=== PATIENT | female | born 1955 | race Caucasian/White ===

== ENCOUNTER → 2021-07-11 10:29 | Outpatient (BNVA) | payer MEDICARE, SELFPAY | PROVIDERS: PCP Physician Assistant; Referring Provider Physician Assistant; Visit Provider Psychiatry & Neurology Neurology | DX: D32.9 Benign neoplasm of meninges, unspecified (principal); G40.109 Localization-related (focal) (partial) symptomatic epilepsy and epileptic syndromes with simple partial seizures, not intractable, without status epilepticus; I63.89 Other cerebral infarction; G08 Intracranial and intraspinal phlebitis and thrombophlebitis | CPT/HCPCS: 99215 ==

== ENCOUNTER 2024-08-20 11:15 | Outpatient (CLI) | payer MEDICARE, SELFPAY ==
--- NOTE | 2024-08-20 | DI.US_ITS ---
Exam(s) US LOWER EXTREMITY VENOUS LT EXAM: US LOWER EXTREMITY VENOUS LT CLINICAL HISTORY: LEFT LEG PAIN M79.605 R/O DVT. TECHNIQUE: Lower extremity venous ultrasound performed using grayscale, color-flow, and spectral Do ppler analysis. COMPARISON: No exams were available for comparison FINDINGS: The common femoral, femoral and popliteal veins demonstrate normal compressibility, augmentation, and color Doppler. The posterior tibial and peroneal veins are patent. No saphenous vein thrombosis or other superficial venous thrombosis is seen. No hematoma or Chappell's cyst is seen. IMPRESSION: Negative lower extremity ultrasound. No evidence of DVT. DATA REPOSITORY:
== END 2024-08-20 11:35 ==
PROVIDERS: PCP Physician Assistant; Visit Provider Emergency Medicine
DX: M79.605 Pain in left leg (principal)
CPT/HCPCS: 93971

== ENCOUNTER → 2024-10-08 08:56 | Outpatient (BNVA) | payer MEDICARE, SELFPAY | PROVIDERS: PCP Physician Assistant; Referring Provider Physician Assistant; Visit Provider Podiatrist | DX: L60.0 Ingrowing nail (principal); B35.1 Tinea unguium; L60.3 Nail dystrophy; G62.9 Polyneuropathy, unspecified; I73.89 Other specified peripheral vascular diseases; M79.674 Pain in right toe(s); E11.9 Type 2 diabetes mellitus without complications; L97.522 Non-pressure chronic ulcer of other part of left foot with fat layer exposed; R60.0 Localized edema; I83.93 Asymptomatic varicose veins of bilateral lower extremities; L65.9 Nonscarring hair loss, unspecified; R23.8 Other skin changes | CPT/HCPCS: 11719; 99204 ==

== ENCOUNTER 2025-03-22 15:51 | Outpatient (REF) | payer MEDICARE, SELFPAY ==
[2025-03-22 17:05] LABS: Glucose Negative (Negative)
== END 2025-03-22 15:52 | disposition home or self-care (01) ==
LOC: LBN 15:51
PROVIDERS: PCP Physician Assistant; Visit Provider Nurse Practitioner Adult Health
DX: R53.1 Weakness (principal)
CPT/HCPCS: 81003; 87086

== ENCOUNTER 2025-04-15 04:08 | Inpatient (IN) | payer MEDICARE, SELFPAY ==
[2025-04-15] VITALS (61 sets, daily range): BP systolic 125–168; BP diastolic 52–133; PULSE 57–135; RESP 14–27; TEMP 36.2–40.5; O2SAT 85–99
--- NOTE | 2025-04-15 04:00 | RT.EKG_ITS ---
APPROVED REPORT Exam: Resting ECG Reason for Exam: sepsis Patient Location: E HR:123 bpm ECG Measurements Heart Rate 123 AXIS AR 181 P 74 QRSd 76 QRS 35 QT 303 T 3 QTc 434 Conclusion Sinus tachycardia...rate> [address] segment or T wave abnormalities to suggest occlusive IN
--- NOTE | 2025-04-15 04:15 | DI.CT_ITS ---
Exam(s) CT HEAD WO EXAM: CT HEAD WO CLINICAL HISTORY: fever, AMS, ?siezures, hx meningioma. TECHNIQUE: Imaging Protocol: Axial computed tomography images with coronal and sagittal reformatted images were created and reviewed COMPARISON: CT CT CTV HEAD/BRAIN from 04/12/[address] CTV HEAD/BRAIN from 07/28/2021 FINDINGS: Ventricles and Extra axial spaces: Normal in size and morphology for the patient's age. Hemorrhage: None. Cerebral parenchyma: There are areas of encephalomalacia involving the right parietal lobe in the occipital lobes bilaterally. There are areas of decreased attenuation in the white matter consistent with chronic microvascular ischemic disease. Midline shift: None. Brainstem/Cerebellum: Normal. Calvarium: Patient has had bilateral prior craniotomies. Visualized Paranasal sinuses/Mastoids: There is mucosal thickening seen in the ethmoid air cells and sphenoid sinuses bilaterally. The mastoid air cells are clear. Soft Tissues: Unremarkable. IMPRESSION: 1. No acute intracranial process. 2. Areas of encephalomalacia and chronic microvascular ischemic disease. 3. Bilateral prior craniotomies. 4. The preliminary [facility] report was reviewed. RADIATION DOSE DELIVERED: 823.67mGy.cm Total DLP DATA REPOSITORY: All CT scans at this facility are submitted to the National Radiology Data Registry (NRDR) Dose Index Registry (DIR) with the [employer] ([employer]). RADIATION OPTIMIZATION: All CT scans at this facility use at least one of these dose optimization techniques: automated exposure control; mA and/or kV adjustment per patient size (includes targeted exams where dose is matched to clinical indication); or iterative reconstruction.
--- NOTE | 2025-04-15 04:42 | W.ED.GENAD ---
Discharge Plan Discharge Details Chief Complaint: AMS/LOC Clinical Impression: Sepsis, Seizure, Brain tumor Primary Care Provider: Francine Owen ED Provider: Adri Kohli Home Meds and New Rx's Prescriptions: No Action Eliquis 5 mg tablet 5 mg PO BID ketoconazole 2 % cream 1 applic topical DAILY Qty: 120 6RF Rx Instructions: Apply to toenails once daily cholecalciferol (vitamin D3) 50 mcg (2,000 unit) capsule 50 mcg PO DAILY omega-3 fatty acids [Fish Oil Concentrate] 1,000 mg capsule 1,000 mg PO BID lacosamide 200 mg tablet 200 mg PO BID levetiracetam 750 mg tablet 500 mg PO BID nystatin 100,000 unit/gram powder 1 applic topical BID Proair Digihaler 90 mcg/actuation aero powdr breath act w/sensor 2 inh IH Q6H loratadine 10 mg tablet 10 mg PO DAILY folic acid 1 mg tablet 1 mg PO DAILY lorazepam 1 mg tablet 1 mg PO PRN PRN (Reason: anxiety/MRI) Qty: 2 0RF Rx Instructions: Take 1 tab 30min prior to MRI; ok to take 2nd if still claustrophobic; no driving cyclobenzaprine 10 mg tablet 10 mg PO TID PRN acyclovir 400 mg tablet 400 mg PO TID Alive Women's Multivitamin 4.5 mg iron- 120 mcg-60 mcg tablet 1 tab PO DAILY calcium carbonate 600 mg calcium (1,500 mg) tablet 600 mg PO DAILY cyanocobalamin (vitamin B-12) 1,000 mcg capsule 1,000 mcg PO DAILY dexamethasone 1 mg tablet 1 mg PO DAILY Patient Comments: TAKE 1 & 1/2 TABLETS BY MOUTH DAILY FOR 1 WEEK, THEN TAKE 1 TABLET DAILY THEREAFTER fluconazole 100 mg tablet 100 mg PO DAILY glipizide 2.5 mg tablet 2.5 mg PO DAILY losartan 25 mg tablet 25 mg PO DAILY omeprazole 40 mg capsule,delayed release(DR/EC) 40 mg PO DAILY Patient Comments: TAKE ONE CAPSULE BY MOUTH EVERY DAY gabapentin 300 mg capsule 300 mg PO BID diphenhydramine HCl [Benadryl] 25 mg capsule 25 mg PO Q12H PRN PRN bisacodyl 10 mg suppository 10 mg DC Q12H PRN PRN HPI General Mode of arrival: EMS. Date/Time Provider Initiated Documentation: 04/15/25 04:19. Limitations to Documentation: altered mental status. Information obtained by: patient, EMS and old records reviewed. HPI Narrative: 69yo F with hx HTN, HLD, COPD, T2DM, CKD3, GERD, meningoma, seizures on keppra & locasamide, [facility] and altered mental status. Medical history from chart review (nursing facility) and HPI from EMS. Per EMS nursing facility staff reported patient is not at her baseline mental status (does have some confusion at baseline), was incontinent of urine which is abnormal for her; temp of 105F for EMS and tachycardia to 130's. Unknown last known normal. No medications prior to arrival. No history able to be obtained from patient. Related Data Home Medications Medication Instructions Recorded Confirmed albuterol sulfate 90 mcg/actuation 2 inh inhalation Q6H 09/02/19 04/15/25 breath activated powder inhaler,sensor (Proair Digihaler) Held on 04/15/25. Instructions: Pt Stopped/Never Started folic acid 1 mg tablet 1 mg PO DAILY 09/02/19 04/15/25 Held on 04/15/25. Instructions: Pt Stopped/Never Started loratadine 10 mg tablet 10 mg PO DAILY 09/02/19 04/15/25 Held on 04/15/25. Instructions: Pt Stopped/Never Started lorazepam 1 mg tablet 1 mg PO PRN PRN anxiety/MRI #2 tabs 02/22/20 04/15/25 Held on 04/15/25. Instructions: Pt Stopped/Never Started cholecalciferol (vitamin D3) 50 50 mcg PO DAILY 04/14/20 04/15/25 mcg (2,000 unit) capsule omega-3 fatty acids 1,000 mg 1,000 mg PO BID 04/14/20 04/15/25 capsule (Fish Oil Concentrate) acyclovir 400 mg tablet 400 mg PO TID 06/05/21 04/15/25 Held on 04/15/25. Instructions: Pt Stopped/Never Started cyclobenzaprine 10 mg tablet 10 mg PO TID PRN 06/05/21 04/15/25 Held on 04/15/25. Instructions: Pt Stopped/Never Started lacosamide 200 mg tablet 200 mg PO BID 07/11/21 04/15/25 levetiracetam 750 mg tablet 500 mg PO BID 07/11/21 04/15/25 nystatin 100,000 unit/gram topical 1 applic topical BID 07/11/21 04/15/25 powder Held on 04/15/25. Instructions: Pt Stopped/Never Started apixaban 5 mg tablet (Eliquis) 5 mg PO BID 10/08/24 04/15/25 ketoconazole 2 % topical cream 1 applic topical DAILY #120 grams 10/08/24 04/15/25 Held on 04/15/25. Instructions: Pt Stopped/Never Started bisacodyl 10 mg rectal suppository 10 mg DC Q12H PRN PRN 04/15/25 04/15/25 calcium carbonate 600 mg PO DAILY 04/15/25 04/15/25 cyanocobalamin (vitamin B-12) 1,000 mcg PO DAILY 04/15/25 04/15/25 1,000 mcg capsule dexamethasone 1 mg tablet 1 mg PO DAILY 04/15/25 04/15/25 diphenhydramine HCl 25 mg capsule 25 mg PO Q12H PRN PRN 04/15/25 04/15/25 (Benadryl) fluconazole 100 mg tablet 100 mg PO DAILY 04/15/25 04/15/25 gabapentin 300 mg capsule 300 mg PO BID 04/15/25 04/15/25 glipizide 2.5 mg tablet 2.5 mg PO DAILY 04/15/25 04/15/25 losartan 25 mg tablet 25 mg PO DAILY 04/15/25 04/15/25 mv-min-iron 4.5 mg-folic ac 120 1 tab PO DAILY 04/15/25 04/15/25 mcg-vit K1 60 mcg-herbal no.352 tablet (Alive Women's Multivitamin) omeprazole 40 mg capsule,delayed 40 mg PO DAILY 04/15/25 04/15/25 release Previous Rx's Medication Instructions Recorded lorazepam 1 mg tablet 1 mg PO PRN PRN anxiety/MRI #2 tabs 02/22/20 Held on 04/15/25. Instructions: Pt Stopped/Never Started ketoconazole 2 % topical cream 1 applic topical DAILY #120 grams 10/08/24 Held on 04/15/25. Instructions: Pt Stopped/Never Started Allergies Allergy/AdvReac Type Severity Reaction Status Date / Time spider venom Allergy Mild swelling Verified 10/08/24 09:04 [place] nut Allergy Unknown Verified 10/08/24 09:04 house dust Allergy Unknown Verified 10/08/24 09:04 Penicillins Allergy Unknown Verified 10/08/24 09:04 General Stated Complaint: AMS/LOC VIKY: 2 Review of Systems Unobtainable due to mental status Exam Narrative Exam Narrative: General: Unresponsive to voice Head: Atraumatic Neck: Trachea midline, Neck supple. ENT: MMM. Cardiac: Tachycardiac, regular, no murmurs appreciated Resp: No respiratory distress. Coarse breath sounds bilaterally. Abd: Soft, non-distended, nontender : No suprapubic tenderness. Extremities: No deformities. Neurologic: Initially appears to be seising with rightward beating nystagmus and subtle jaw movements. Terminated within 5 minutes, subsequently 9 (E2 V2 M5). Moves all extremities. 0500 repeat neuro exam: Neuro: GCS 14. PERRL. EOMI. Fluent speech, no dysarthria. Motor- 4/5 strength LUE, otherwise 4+/5 strength symmetric bilateral upper and lower extremities Sensation- Intact to light touch and symmetric multiple dermatomes including upper and lower extremities. Coordination- No dysmetria on finger to nose Reflexes- 2/4 achilles & patellar, no clonus Gait/station: Not tested CRANIAL NERVES: II: Pupils equal and reactive, III, IV, : EOM intact, no gaze preference or deviation, no nystagmus. V: normal sensation in V1, V2, and V3 segments bilaterally VII: no asymmetry, no nasolabial fold flattening VIII: normal hearing to speech IX, X: normal palatal elevation, no uvular deviation XI: 5/5 head turn and 5/5 shoulder shrug bilaterally XII: midline tongue protrusion Course Vital Signs Vital signs: Vital Signs Temperature 40.5 C H 04/15/25 04:09 Pulse 135 H 04/15/25 04:09 Respiratory Rate 20 04/15/25 04:09 Blood Pressure 167/90 H 04/15/25 04:09 Pulse Oximetry 95 04/15/25 04:09 Temperature 40.5 C H 04/15/25 04:13 Temperature Source Rectal 04/15/25 04:13 Pulse 135 H 04/15/25 04:13 Respiratory Rate 20 04/15/25 04:13 Blood Pressure 167/90 H 04/15/25 04:13 Blood Pressure Position Supine 04/15/25 04:13 Pulse Oximetry 95 04/15/25 04:13 Oxygen Delivery Method Room Air 04/15/25 04:13 Oxygen Flow Rate 0 04/15/25 04:13 Pain Level 0 04/15/25 04:13 Lab/Test Results Lab/Test Results: 04/15/25 04:08 Blood Blood Culture - Pending 04/15/25 04:08 Blood Blood Culture - Pending Medical Decision Making 69yo F with hx HTN, HLD, COPD, T2DM, CKD3, GERD, meningoma, seizures on keppra & locasamide, presenting [facility] fever and altered mental status. Medical history from chart review (nursing facility) and HPI from EMS. Per EMS nursing facility staff reported patient is not at her baseline mental status (does have some confusion at baseline), was incontinent of urine which is abnormal for her; temp of 105F for EMS and tachycardia to 130's. Unknown last known normal. No medications prior to arrival. No history able to be obtained from patient. Initial evaluation and resus: -Hypertensive, tachycardiac to 130's on arrival and febrile to 40.5. On my initial eval pt unresponsive, rightward beating nystagmus and subtle repetitive jaw movements concerning for seizure. Terminated within ~5 minutes as IV access was being obtained, subsequently GCS 9 (E2 V2 M5), moves all 4 extremities. Anterior mouth suctioned for mild oral secretions, airway reflexes intact, no indication for intubation at this time. -Warm to touch on exam, coarse lung sounds, dressing to right cabrera with underlying purulent wound. Malodourous urine in brief. Neck supple. -EKG sinus tachycardia, no ST segment or T wave abnormalities to suggest occlusive MD -Concern for sepsis of unknown origin. Given AMS and seizure must consider and cover for meningitis. Documented penicillin allergy with unknown reaction complicates abx coverage; will give Vanco, levoflox, & tmp/sulf for listeria coverage and give dexamethasone; blood and urine cultures. Hx of brain tumor; needs CT prior to LP; will not delay abx. -Will give 1L IVFB and see if improves HR, also 2g IV keppra load (initially ordered ativan however seizure terminated without intervention prior to admin so dced). ED course: -On reassessment pt alert, GCS 14 (confusion), denies pain. Unable to provide any meaningful history of events today though she is now able to confirm her past medical history. ROS negative. No new focal deficits on neurologic exam (pt reports LUE weakness and subjective left sided numbness are chronic). IVF and abx infusing. Preparing to go to [facility] -[facility] record review shows pt on eliquis for chronic cerebral venous thrombosis for which she is on eliquis -Labs reviewed as below, CBC with marked leukocytosis to 22, CMP with no actionable abnormalities and Cr of 1.2 consistent with CKD, Mg slightly low at 1.6 (oral replacement ordered), VBG with mild respiratory and metabolic alkalosis, lactate mildly elevated at 2.7 with repeat downtrending to 2.5, procal negative/reassuring, coags normal, initial troponin 17, resp viral swab negative. UA nitrate positive with moderate bacteria. Keppra level pending. -On reassessment patient remains alert, HR improved to low 100's, non-toxic appearing, no headache or neck pain. CT reads pending. -CT head independently reviewed; no midline shift on my view (does have clear abnormalities of unknown chronicity, possibly 2/t hx tumor/surgery/CVT), radiology read pending. -CT chest independently reviewed; no pneumonia or pleural effusions on my view, radiology read below with no acute findings. -CT abd/pelvis independently reviewed; no obstruction or free fluid on my view, radiology read below with no acute findings. -Repeat troponin uptrending to 30, likely [id number]. Will continue to treat underlying cause; would not do heparin/etc at this time. Will continue to trend. With rapid improvement in mental status seems most likely related to seizure/post ictal state and unlikely to be indicative of meningitis. Patient is now alert and denies any headache or neck pain, neck is supple. She did seize but has an underlying seizure disorder. In addition she is anticoagulated with a hx of cerebral thrombosis. I do not think the risks/benefits of lumbar puncture favor reversing AC and performing urgent LP as based on her current presentation and improving mental status I have a much lower suspicion for meningitis/encephalitis. With nitrate + urine and moderate bacteria, favor urinary source for her sepsis (does have purulent wound to right cabrera which is chronic and does not appear to have spreading cellulitis). Will be signed out to oncoming physician with plan to followup CT head. If no indication for transfer or other emergent workup based on this, would anticipate admission to [facility] for sepsis. Chest: IMPRESSION: 1. No acute findings to explain reported symptoms. 2. Nonacute findings as outlined above. 3. Additional studies dictated separately. Abd/Pelvis: IMPRESSION: 1. No acute findings to explain reported symptoms. 2. Nonacute findings as outlined above. 3. Additional studies dictated separately Head: Medical Records Medical records reviewed: Yes I reviewed the patient's medical records. Lab Data Lab results reviewed: Yes I reviewed the patient's lab results. Labs: 04/15/25 06:07 Urine - Cath [facility] Indwelling Urine Culture - Pending 04/15/25 04:40 Blood Blood Culture - Pending 04/15/25 04:08 Blood Blood Culture - Pending Laboratory Tests Range/Units 04/15/25 04/15/25 04/15/25 04:40 04:50 04:59 WBC (4.4-10.8) 10^3/uL 22.65 H RBC (3.93-5.22) 10^6/uL 4.22 Hgb (11.2-15.7) g/dL 12.0 Hct (36.0-46.0) % 37.6 MCV (80-95) fL 89 MCH (27.0-33.0) pg 28.4 MCHC (32.0-36.0) % 31.9 L RDW (11.7-14.6) % 14.4 Plt Count (130-400) 10^3/uL 225 MPV (8.0-11.0) fL 10.3 Immature Gran % % 1.2 Neutrophils % % 81.2 Lymphocytes % % 12.3 Monocytes % % 4.8 Eosinophils % % 0.2 Basophils % % 0.3 Nucleated RBC % (0.0-0.3) % 0.0 Absolute Neutrophils (1.2-6.7) 10^3/uL 18.39 H Absolute Lymphocytes (1.2-3.4) 10^3/uL 2.79 Absolute Monocytes (0.1-0.8) 10^3/uL 1.09 H Absolute Eosinophils (0.0-0.7) 10^3/uL 0.05 Absolute Basophils (0.0-0.2) 10^3/uL 0.07 PT (9.1-11.1) sec 10.9 INR (0.9-1.1) 1.1 APTT (20.6-30.2) sec 23.5 VBG pH (7.31-7.41) 7.47 H VBG pCO2 (41-51) mmHg 40 L VBG pO2 mmHg 35 VBG HCO3 (23-28) mmol/L 29 H VBG Total CO2 (24-29) mmol/L 26 VBG O2 Saturation % 67 VBG Base Excess (-2-3) mmol/L 6 H VBG Lactate (<or=2.0) mmol/L 2.7 H* Sodium (136-145) mmol/L 140 Potassium (3.5-5.1) mmol/L 3.5 Chloride (98-107) mmol/L 100 Carbon Dioxide (21.0-32.0) mmol/L 28.6 Anion Gap (3-11) mmol/L 11.4 H BUN (7-18) mg/dL 14 Creatinine (0.55-1.02) mg/dL 1.2 H Est GFR (CKD-EPI 2020) (mL/min/1.73m2) 49.61 Glucose (74-106) mg/dL 136 H Calcium (8.5-10.1) mg/dL 8.9 Magnesium (1.8-2.4) mg/dL 1.6 L Total Bilirubin (0.2-1.0) mg/dL 0.6 AST (15-37) U/L 18 ALT (14-59) U/L 29 Alkaline Phosphatase (46-116) U/L 83 Troponin I (<or=51) ng/L 17 Total Protein (6.4-8.2) g/dL 7.2 Albumin (3.4-5.0) g/dL 3.3 L Procalcitonin ng/mL < 0.10 Urine Color (Yellow) Urine Clarity (Clear) Urine pH (5-8) Ur Specific [place] (1.005-1.025) Urine Protein (Neg-Trace) mg/dL Urine Ketones (Negative) mg/dL Urine Blood (Negative) Urine Nitrite (Negative) Urine Bilirubin (Negative) Urine Urobilinogen (Up to 0.2) mg/dL Ur Leukocyte Esterase (Negative) Urine RBC (0-2) HPF Urine WBC (0-5) HPF Ur Epithelial Cells (Negative) HPF Urine Crystals (Negative) HPF Urine Bacteria (Negative) HPF Urine Casts (Negative) LPF Urine Mucus (Negative) Ur Culture Indicated? Urine Glucose (Negative) mg/dL COVID-19 Source Nasopharynx Cancelled SARS-CoV-2 (PCR) (Negative) Negative Cancelled Influenza Type A (PCR) (Negative) Negative Cancelled Influenza Type B (PCR) (Negative) Negative Cancelled RSV (PCR) (Negative) Negative Cancelled Range/Units 04/15/25 04/15/25 05:40 06:07 WBC (4.4-10.8) 10^3/uL RBC (3.93-5.22) 10^6/uL Hgb (11.2-15.7) g/dL Hct (36.0-46.0) % MCV (80-95) fL MCH (27.0-33.0) pg MCHC (32.0-36.0) % RDW (11.7-14.6) % Plt Count (130-400) 10^3/uL MPV (8.0-11.0) fL Immature Gran % % Neutrophils % % Lymphocytes % % Monocytes % % Eosinophils % % Basophils % % Nucleated RBC % (0.0-0.3) % Absolute Neutrophils (1.2-6.7) 10^3/uL Absolute Lymphocytes (1.2-3.4) 10^3/uL Absolute Monocytes (0.1-0.8) 10^3/uL Absolute Eosinophils (0.0-0.7) 10^3/uL Absolute Basophils (0.0-0.2) 10^3/uL PT (9.1-11.1) sec INR (0.9-1.1) APTT (20.6-30.2) sec VBG pH (7.31-7.41) VBG pCO2 (41-51) mmHg VBG pO2 mmHg VBG HCO3 (23-28) mmol/L VBG Total CO2 (24-29) mmol/L VBG O2 Saturation % VBG Base Excess (-2-3) mmol/L VBG Lactate (<or=2.0) mmol/L 2.5 H* Sodium (136-145) mmol/L Potassium (3.5-5.1) mmol/L Chloride (98-107) mmol/L Carbon Dioxide (21.0-32.0) mmol/L Anion Gap (3-11) mmol/L BUN (7-18) mg/dL Creatinine (0.55-1.02) mg/dL Est GFR (CKD-EPI 2020) (mL/min/1.73m2) Glucose (74-106) mg/dL Calcium (8.5-10.1) mg/dL Magnesium (1.8-2.4) mg/dL Total Bilirubin (0.2-1.0) mg/dL AST (15-37) U/L ALT (14-59) U/L Alkaline Phosphatase (46-116) U/L Troponin I (<or=51) ng/L 30 Total Protein (6.4-8.2) g/dL Albumin (3.4-5.0) g/dL Procalcitonin ng/mL Urine Color (Yellow) Yellow Urine Clarity (Clear) Clear Urine pH (5-8) 5.5 Ur Specific [place] (1.005-1.025) 1.010 Urine Protein (Neg-Trace) mg/dL Negative Urine Ketones (Negative) mg/dL Negative Urine Blood (Negative) Negative Urine Nitrite (Negative) Positive H Urine Bilirubin (Negative) Negative Urine Urobilinogen (Up to 0.2) mg/dL 0.2 Ur Leukocyte Esterase (Negative) Negative Urine RBC (0-2) HPF Negative Urine WBC (0-5) HPF 0-2 Ur Epithelial Cells (Negative) HPF Few Urine Crystals (Negative) HPF Negative Urine Bacteria (Negative) HPF Moderate Urine Casts (Negative) LPF Negative Urine Mucus (Negative) Negative Ur Culture Indicated? C&S Done As Ordered Urine Glucose (Negative) mg/dL Negative COVID-19 Source SARS-CoV-2 (PCR) (Negative) Influenza Type A (PCR) (Negative) Influenza Type B (PCR) (Negative) RSV (PCR) (Negative) Critical Care Time Critical Care Time Critical Care Time: Yes Total Critical Care Time: 46 Attestation: Due to a high probability of clinically significant, life threatening deterioration, the patient required my highest level of preparedness to intervene emergently and I personally spent this critical care time directly and personally managing the patient. This critical care time included obtaining a history; examining the patient; pulse oximetry; ordering and review of studies; arranging urgent treatment with development of a management plan; evaluation of patient's response to treatment; frequent reassessment; and, discussions with other providers. This critical care time was performed to assess and manage the high probability of imminent, life-threatening deterioration that could result in multi-organ failure. It was exclusive of separately billable procedures and treating other patients PFSH All Active Problems (Updated 04/15/25 @ 06:35 by Adri Kohli MD) Brain tumor (Acute) Seizure (Acute) Sepsis (Acute) PAD (peripheral artery disease) (Acute) PVD (peripheral vascular disease) (Chronic) Dystrophia unguium (Acute) Onychomycosis (Acute) Ingrown toenail (Acute) Diabetes (Chronic) Vitamin B12 deficiency (non anemic) (Acute) Hypertension (Chronic) Hyperlipidemia (Acute) GERD (gastroesophageal reflux disease) (Chronic) Peripheral neuropathy (Acute) COPD (chronic obstructive pulmonary disease) (Chronic) Obstructive sleep apnea (Chronic) 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) Meningioma (Acute) Medical History Cerebral venous thrombosis Cerebral venous infarction, acute Spinal stenosis cervical Diverticular disease Surgical History Synovial cyst of sacral region resection S/P cholecystectomy S/P craniotomy 1999 and 2018 S/P cervical discectomy C5-6 decompression for cord impingement Family History Mother Stroke Father Diabetes Heart disease Social History Smoking/Tobacco Use Status: Current every day Tobacco Type: cigarettes Smoking risk assessment performed?: Yes Alcohol Intake: never Drug use: Never Substance use type: marijuana Household members: none Housing: house Number of Children: 2 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
[2025-04-15 04:50] LABS: BE (Venous) 6 mmol/L (-2-3); HCO3 (Venous) 29 mmol/L (23-28); O2 Sat (Venous) 67 %; TCO2 (Venous) 26 mmol/L (24-29); pCO2 (Venous) 40 mmHg (41-51); pO2 (Venous) 35 mmHg
[2025-04-15] MEDS: ACETAMINOPHEN 1,000 MG/100 ML BAG 400 MG IVPB (04:51)
[2025-04-15 04:52] LABS: Abs Immature Grans 0.28 10^3/uL (0.0-0.06); HCT 37.6 % (36.0-46.0); HGB 12.0 g/dL (11.2-15.7); Immature Grans % 1.2 %; MCH 28.4 pg (27.0-33.0); MCHC 31.9 % (32.0-36.0); MCV 89 fL (80-95); MPV 10.3 fL (8.0-11.0); Platelet Count 225 10^3/uL (130-400); RBC 4.22 10^6/uL (3.93-5.22); RDW 14.4 % (11.7-14.6); RDW-SD 46.5 fL; WBC 22.65 10^3/uL (4.4-10.8)
[2025-04-15] MEDS: levETIRAcetam 2,000 MG in Normal Saline 100 ML 400 MG IVPB (04:52)
[2025-04-15] MEDS: levoFLOXacin 750 MG/150 ML BAG 100 MG IVPB (04:52)
[2025-04-15] MEDS: Dexamethasone 10 MG/ML VIAL 17 MG IVP (05:03)
[2025-04-15 05:07] LABS: Magnesium 1.6 mg/dL (1.8-2.4)
[2025-04-15 05:11] LABS: INR 1.1 (0.9-1.1); PTT Activated 23.5 sec (20.6-30.2); Prothrombin Time 10.9 sec (9.1-11.1)
[2025-04-15 05:15] LABS: ALT 29 U/L (14-59); AST 18 U/L (15-37); Albumin 3.3 g/dL (3.4-5.0); Alkaline Phosphatase 83 U/L (46-116); Anion Gap 11.4 mmol/L (3-11); BUN 14 mg/dL (7-18); Bilirubin, Total 0.6 mg/dL (0.2-1.0); CO2 28.6 mmol/L (21.0-32.0); Calcium 8.9 mg/dL (8.5-10.1); Chloride 100 mmol/L (98-107); Glucose 136 mg/dL (74-106); Potassium 3.5 mmol/L (3.5-5.1); Sodium 140 mmol/L (136-145); Total Protein 7.2 g/dL (6.4-8.2); Troponin I 17 ng/L (<or=51)
[2025-04-15 05:24] LABS: Procalcitonin < 0.10 ng/mL
[2025-04-15] MEDS: Omnipaque 350 MG/ML 100 ML BTL IJ (05:33)
[2025-04-15] MEDS: Normal Saline Flush 10 ML SYR IVP ×5 (05:34→20:28)
[2025-04-15] MEDS: Normal Saline - Diluent 50 ML VIAL IJ (05:34)
--- NOTE | 2025-04-15 05:34 | DI.CT_ITS ---
Exam(s) CT CHEST/ABD/PEL W EXAM: CT CHEST/ABD/PEL W CLINICAL HISTORY: fever, AMS TECHNIQUE: Imaging Protocol: Axial computed tomography images with coronal and sagittal reformatted images were created and reviewed. Lung Computer Aided Detection (CAD) was utilized. CONTRAST MATERIAL: Intravenous: Omnipaque 350 contrast volume:100 mL Oral: No COMPARISON: No exams were available for comparison FINDINGS: The examination is limited due to patient motion artifact. CHEST: Tracheobronchial tree: Patent where visualized. No evidence of bronchiectasis. Pulmonary parenchyma: No consolidation or dominant measurable mass. No architectural distortion. Visualized thyroid gland: Unremarkable. Mediastinum and Diana: No dominant adenopathy or fluid collection. The esophagus is unremarkable. Pleura: No effusion or pneumothorax. Heart: The heart is not dilated. Coronary artery calcification is present. No pericardial effusion. Pulmonary arteries: There is no large central pulmonary embolism. Aorta: Thoracic aorta non-dilated. Atherosclerotic calcification is present. Lymph nodes: Within normal limits. Tubes, Catheters, and Lines: There is a right chest port in place. Soft tissues: Unremarkable. Bones:Within normal limits for the patient's age. ABDOMEN: Liver: Normal density. No measurable mass. Portal, Superior Mesenteric, and Splenic Veins: Unremarkable. Gallbladder and Biliary Tract: Status post cholecystectomy. No significant biliary ductal dilatation is present. Pancreas: Normal density, no abnormal calcifications or inflammatory process. Spleen: Normal. Adrenals: No masses seen. Kidneys: Normal size, contour and axis. No radiodense stones or obstructive uropathy. There is a tiny hypodensity in the left kidney. It is too small for further characterization but likely reflects a small cyst. No follow-up is recommended. Abdominal Aorta: Abdominal portion non-dilated. Atherosclerotic calcification is present. Bowel: No obstruction or bowel wall thickening. There is an anastomosis at the rectosigmoid junction. There is no evidence of appendicitis. Peritoneal Cavity: No ascites, collection or mesenteric inflammatory response. No free air. Lymph Nodes: Within normal limits. Bones: Within normal limits for the patient's age. Soft Tissues: There are postsurgical changes in the anterior abdominal wall with a midline scar present. PELVIS: Bladder: Symmetric distention, no gross wall thickening. Reproductive Organs: Unremarkable as visualized. Lymph Nodes: Within normal limits. Bones: Within normal limits. IMPRESSION: 1. There is no acute abdominal or pelvic process. 2. There is no acute pulmonary process. 3. The preliminary [facility] report was reviewed. RADIATION DOSE DELIVERED: 1,693.4mGy.cm Total DLP DATA REPOSITORY: All CT scans at this facility are submitted to the National Radiology Data Registry (NRDR) Dose Index Registry (DIR) with the [employer] ([employer]). RADIATION OPTIMIZATION: All CT scans at this facility use at least one of these dose optimization techniques: automated exposure control; mA and/or kV adjustment per patient size (includes targeted exams where dose is matched to clinical indication); or iterative reconstruction.
[2025-04-15 05:43] LABS: COVID-19 PCR Negative (Negative); RSV PCR Negative (Negative)
[2025-04-15] MEDS: VANCOMYCIN 2,000 MG in Normal Saline 500 ML 250 MG IVPB (05:46)
--- NOTE | 2025-04-15 05:57 | DI.[facility]_ITS ---
PROCEDURE INFORMATION: Exam: CT Chest With Contrast; Diagnostic Exam date and time: 04/15/2025 5:20 AM Age: 69 years old Clinical indication: Fever and other: AMS; Prior surgery; Surgery date: 6+ months; Surgery type: Cholecystectomy; Fever, AMS TECHNIQUE: Imaging protocol: Diagnostic computed tomography of the chest with contrast. 3D rendering (Not supervised by radiologist): MIP and/or 3D reconstructed images were created by the technologist. Radiation optimization: All CT scans at this facility use at least one of these dose optimization techniques: automated exposure control; mA and/or kV adjustment per patient size (includes targeted exams where dose is matched to clinical indication); or iterative reconstruction. Contrast material: [id number]; Contrast volume: 100 ml; Contrast route: INTRAVENOUS (IV); COMPARISON: No relevant prior studies available. FINDINGS: Limitations: Images are degraded due to artifact caused by patient motion and arm positioning. Lungs: Clustered nodular densities at the right lung base, indeterminate on this examination. Pleural spaces: No pleural effusion. Heart: No pericardial effusion. Coronary arteries: Coronary artery calcifications. Lymph nodes: Nonspecific mediastinal lymph nodes. Vasculature: Atherosclerotic changes in the aorta and its branches. Intraperitoneal space: CT scan of the abdomen and pelvis dictated separately. Bones/joints: No acute pertinent abnormality appreciated. Soft tissues: No acute pertinent abnormality appreciated. IMPRESSION: 1. No acute findings to explain reported symptoms. 2. Nonacute findings as outlined above. 3. Additional studies dictated separately. PROCEDURE INFORMATION: Exam: CT Abdomen And Pelvis With Contrast Exam date and time: 04/15/2025 5:20 AM Age: 69 years old Clinical indication: Fever and other: AMS; Prior surgery; Surgery date: 6+ months; Surgery type: Cholecystectomy; Fever, AMS TECHNIQUE: Imaging protocol: Computed tomography of the abdomen and pelvis with contrast. 3D rendering (Not supervised by radiologist): MIP and/or 3D reconstructed images were created by the technologist. Radiation optimization: All CT scans at this facility use at least one of these dose optimization techniques: automated exposure control; mA and/or kV adjustment per patient size (includes targeted exams where dose is matched to clinical indication); or iterative reconstruction. Contrast material: [id number]; Contrast volume: 100 ml; Contrast route: INTRAVENOUS (IV); COMPARISON: No relevant prior studies are available for comparison. FINDINGS: Limitations: Images are degraded due to artifact caused by patient motion and arm positioning. Lungs: CT scan of the chest dictated separately. Liver: No focal hepatic lesion identified. Gallbladder and biliary ducts: Cholecystectomy. Pancreas: No CT evidence for acute pancreatitis. Spleen: No splenomegaly. Adrenal glands: No mass. Kidneys and ureters: No hydronephrosis or evidence for pyelonephritis. Stomach and bowel: No intestinal obstruction is evident. Retained fecal material throughout the colon. Correlate clinically for history of constipation. Appendix: No evidence of appendicitis. Intraperitoneal space: No free air. Vasculature: Atherosclerotic changes in the aorta and its branches. Lymph nodes: No acute findings. Urinary bladder: No acute findings. Reproductive: No acute findings. Bones/joints: No pertinent acute abnormality seen. Soft tissues: Anterior abdominal wall laxity. Biliary ductal dilatation. IMPRESSION: 1. No acute findings to explain reported symptoms. 2. Nonacute findings as outlined above. 3. Additional studies dictated separately. Dictated and Authenticated by: Lisa Smith MD. Orderin Kamilla Rush MD
[2025-04-15 06:20] LABS: Troponin I 30 ng/L (<or=51)
[2025-04-15 06:24] LABS: Glucose Negative (Negative)
[2025-04-15 06:37] LABS: RBC Negative HPF (0-2); WBC 0-2 HPF (0-5)
[2025-04-15] MEDS: Magnesium Gluconate 500 MG TAB 1000 MG PO (06:46)
--- NOTE | 2025-04-15 07:12 | W.ED.FU ---
Date of service: 04/15/25 Time of Service: 07:12 Follow Up Plan: I received signout on this 69-year-old female with history of meningioma found to have a urinary tract infection. She is pending a CT read but will require hospitalization. There was initially concern for meningitis for which patient received empiric coverage. She was initially altered from health and rehab. She had a seizure that terminated without intervention though patient received levetiracetam load afterwards. 8:45 AM Repeat ECG showing normal sinus rhythm at a rate of 82. Normal axis. Intervals within normal limits. Anterior ST segment depressions similar to prior dated earlier today. No ST segment elevations. Low voltage. No acute injury pattern. Patient denies chest pain. Repeat ECG is not ischemic. Will treat with aspirin. Likely demand in the setting of seizure. 9:08 AM I was in touch with Dr. Gonzalez who graciously agreed to accept the patient for hospitalization. She received antibiotics in the ED.
[2025-04-15 08:00] LABS: Troponin I 50 ng/L (<or=51)
[2025-04-15] MEDS: Normal Saline 500 ML IV (08:13)
--- NOTE | 2025-04-15 08:15 | RT.EKG_ITS ---
APPROVED REPORT Exam: Resting ECG Reason for Exam: elevated trop Patient Location: E HR:82 bpm ECG Measurements Heart Rate 82 AXIS WV 159 P 57 QRSd 90 QRS 21 QT 405 T 16 QTc 473 Conclusion Sinus rhythm...normal P axis, V-rate 60- 99 No Occlusion IA
[2025-04-15] MEDS: fentaNYL 100 MCG/2 ML VIAL 50 MCG IVP (08:20)
--- NOTE | 2025-04-15 08:27 | DI.[facility]_ITS ---
PROCEDURE INFORMATION: Exam: CT Head Without Contrast Exam date and time: 04/15/2025 5:18 AM Age: 69 years old Clinical indication: Altered mental status/memory loss; Confusion or disorientation; Prior surgery; Surgery date: 6+ months; Surgery type: Craniotomy; Fever, AMS, ? siezures, HX meningioma TECHNIQUE: Imaging protocol: Computed tomography of the head without contrast. Radiation optimization: All CT scans at this facility use at least one of these dose optimization techniques: automated exposure control; mA and/or kV adjustment per patient size (includes targeted exams where dose is matched to clinical indication); or iterative reconstruction. COMPARISON: MR BRAIN W/WO CONTRAST 07/28/2021 10:59 AM FINDINGS: Brain: Mild low attenuation in the periventricular white matter. This is a nonspecific finding most commonly seen in setting of microvascular ischemic change.Stable foci of encephalomalacia in the right frontal and parietal regions, subjacent to the craniotomy. No evidence of acute infarct. No intraparenchymal hemorrhage. No midline shift or mass effect. No extra-axial fluid collections or hemorrhage. Cerebral ventricles: No ventriculomegaly. Paranasal sinuses: Mild mucosal thickening in bilateral ethmoid air cells. Moderate mucosal thickening in the right sphenoid sinus. Mastoid air cells: Visualized mastoid air cells are well aerated. Bones: Craniotomy defects in the right frontal and bilateral parietal regions. Bilateral chasity holes. No acute or suspicious osseous abnormalities. Soft tissues: Unremarkable. IMPRESSION: 1. No evidence of acute intracranial abnormality. Dictated and Authenticated by: Ca Harp MD. Orderin Kamilla Rush MD
[2025-04-15 08:39] LABS: Lab Add On Test DONE
[2025-04-15] MEDS: Aspirin 81 MG CHEW 324 MG CH (08:46)
--- NOTE | 2025-04-15 09:25 | W.PM.HP.N ---
Date of service: 04/15/25 Time of Service: 09:25 Assessment and Plan Assessment and plan (1) Severe sepsis: Status: Acute Assessment and plan: WBC 22, tachycardia 91-106, lactate 2.5 source UTI Severe Cr 1.6 Cultures pending : Urine and blood repeat pending (2) Acute UTI: Status: Acute Assessment and plan: UA positive . 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: Status: Acute Assessment and plan: On home dose lacosamide and Keppra- IV load given in ED- Keppra level sent Will need to contact SNF for ligible MAR again in AM (5) Seizure: Status: Acute Assessment and plan: breakthrough in the setting of severe sepsis UTI- on AED at home - will continue - Keppra IV load in the ED (6) Diabetes: Status: Chronic (7) Breakthrough seizure: Status: Acute Assessment and plan: As per point 5 (8) On deep vein thrombosis (DVT) prophylaxis: Status: Acute Assessment and plan: Will not need DVT prophylaxis due to Eliquis (9) ALY (acute kidney injury): Status: Acute (10) Hypertension: Status: Chronic (11) Hyperlipidemia: Status: Acute Assessment and plan: On statins (12) GERD (gastroesophageal reflux disease): Status: Chronic Assessment and plan: On PPI (13) COPD (chronic obstructive pulmonary disease): Status: Chronic Assessment and plan: No exacerbation continue home dose regimen (14) Meningioma: Status: Acute Assessment and plan: History of multiple cranial surgery due to meningioma most likely the cause of the seizures now on antiepileptics (15) Venous thromboembolism (VTE): Status: Acute Assessment and plan: History- Eliquis ongoing on dose (16) Hypomagnesemia: Status: Acute Assessment and plan: supplemented Mg in AM Discussed with Dr Gonzalez History of Present Illness History of Present Illness Chief Complaint: seizure Narrative: 69-year-old female history of seizures on oral Keppra and lacosamide, cerebral venous infarction, brain meningioma, PVD, PAD, diabetes, hypertension hyperlipidemia, GERD COPD CKD stage III presented to the ED from a local shelter facility for evaluation of confusion and had a witnessed seizure in the ED. As per ED workup the patient was found to have urinary tract infection. Marshall was inserted in the ED as patient was newly incontinent of urine. IV Keppra was administered in the ED. Imaging from head, chest abdomen pelvis were without any acute findings. Blood work showed WBC at 22.65 with a left shift with AN C at 18, lactic at 2.5, magnesium at 1.6. Moreover the patient presented with tachycardia 91-1 06 and tachypnea up to 25 without hypotension but creatinine was at 1.6 without available baseline. The patient received IV fluid, vancomycin and ceftriaxone in the ED and was admitted to the medical floor by the hospitalist service for further evaluation and management. Full code status confirmed; patient reports headache, chills, fatigue , fogginess, dysuria; reports using biologics Avastin Denies chest pain, SOB, nausea, vomiting, diarrhea or constipation Review of Systems All systems reviewed & are unremarkable except as noted in HPI and below PFSH All Active Problems (Updated 04/15/25 @ 19:10 by Ariadna Story APRN) Acute kidney injury superimposed on CKD (Acute) Venous thromboembolism (VTE) (Acute) On deep vein thrombosis (DVT) prophylaxis (Acute) ALY (acute kidney injury) (Acute) Breakthrough seizure (Acute) Severe sepsis (Acute) Hypomagnesemia (Acute) Myocardial injury (Acute) Acute UTI (Acute) Brain tumor (Acute) Seizure (Acute) Sepsis (Acute) PAD (peripheral artery disease) (Acute) PVD (peripheral vascular disease) (Chronic) Dystrophia unguium (Acute) Onychomycosis (Acute) Ingrown toenail (Acute) Diabetes (Chronic) Vitamin B12 deficiency (non anemic) (Acute) Hypertension (Chronic) Hyperlipidemia (Acute) GERD (gastroesophageal reflux disease) (Chronic) Peripheral neuropathy (Acute) COPD (chronic obstructive pulmonary disease) (Chronic) Obstructive sleep apnea (Chronic) 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) Meningioma (Acute) Medical History Cerebral venous thrombosis Cerebral venous infarction, acute Spinal stenosis cervical Diverticular disease Surgical History Synovial cyst of sacral region resection S/P cholecystectomy S/P craniotomy 1999 and 2018 S/P cervical discectomy C5-6 decompression for cord impingement Family History Mother Stroke Father Diabetes Heart disease Social History Smoking/Tobacco Use Status: Current every day Tobacco Type: cigarettes Smoking risk assessment performed?: Yes Alcohol Intake: never Drug use: Never Substance use type: marijuana Household members: none Housing: house Number of Children: 2 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 What is your relationship status?: Panel score (0-1 are the most socially isolated patients): 0 Seatbelt use: always Meds Allergies and Home Medications Allergies Allergy/AdvReac Type Severity Reaction Status Date / Time spider venom Allergy Mild swelling Verified 10/08/24 09:04 [place] nut Allergy Unknown Verified 10/08/24 09:04 house dust Allergy Unknown Verified 10/08/24 09:04 Penicillins Allergy Unknown Verified 10/08/24 09:04 sulfamethoxazole (From AdvReac Intermediate Other (See Verified 04/15/25 10:10 Bactrim) Comment) trimethoprim (From Bactrim) AdvReac Intermediate Other (See Verified 04/15/25 10:10 Comment) Home Medications Medication Instructions Recorded Confirmed Type cholecalciferol (vitamin D3) 50 50 mcg PO DAILY 04/14/20 04/15/25 History mcg (2,000 unit) capsule omega-3 fatty acids 1,000 mg 1,000 mg PO BID 04/14/20 04/15/25 History capsule (Fish Oil Concentrate) lacosamide 200 mg tablet 200 mg PO BID 07/11/21 04/15/25 History levetiracetam 750 mg tablet 500 mg PO BID 07/11/21 04/15/25 History apixaban 5 mg tablet (Eliquis) 5 mg PO BID 10/08/24 04/15/25 History bisacodyl 10 mg rectal suppository 10 mg MA Q12H PRN PRN 04/15/25 04/15/25 History calcium carbonate 600 mg PO DAILY 04/15/25 04/15/25 History cyanocobalamin (vitamin B-12) 1,000 mcg PO DAILY 04/15/25 04/15/25 History 1,000 mcg capsule dexamethasone 1 mg tablet 1 mg PO DAILY 04/15/25 04/15/25 History diphenhydramine HCl 25 mg capsule 25 mg PO Q12H PRN PRN 04/15/25 04/15/25 History (Benadryl) fluconazole 100 mg tablet 100 mg PO DAILY 04/15/25 04/15/25 History gabapentin 300 mg capsule 300 mg PO BID 04/15/25 04/15/25 History glipizide 2.5 mg tablet 2.5 mg PO DAILY 04/15/25 04/15/25 History losartan 25 mg tablet 25 mg PO DAILY 04/15/25 04/15/25 History mv-min-iron 4.5 mg-folic ac 120 1 tab PO DAILY 04/15/25 04/15/25 History mcg-vit K1 60 mcg-herbal no.352 tablet (Alive Women's Multivitamin) omeprazole 40 mg capsule,delayed 40 mg PO DAILY 04/15/25 04/15/25 History release Results Labs 04/15/25 04:40 04/15/25 04:40 Labs: Laboratory Results - last 24 hr 04/15/25 04/15/25 04/15/25 04:40 04:50 04:59 WBC 22.65 H RBC 4.22 Hgb 12.0 Hct 37.6 MCV 89 MCH 28.4 MCHC 31.9 L RDW 14.4 Plt Count 225 MPV 10.3 Immature Gran % 1.2 Neutrophils % 81.2 Lymphocytes % 12.3 Monocytes % 4.8 Eosinophils % 0.2 Basophils % 0.3 Nucleated RBC % 0.0 Absolute Neutrophils 18.39 H Absolute Lymphocytes 2.79 Absolute Monocytes 1.09 H Absolute Eosinophils 0.05 Absolute Basophils 0.07 PT 10.9 INR 1.1 APTT 23.5 VBG pH 7.47 H VBG pCO2 40 L VBG pO2 35 VBG HCO3 29 H VBG Total CO2 26 VBG O2 Saturation 67 VBG Base Excess 6 H VBG Lactate 2.7 H* Sodium 140 Potassium 3.5 Chloride 100 Carbon Dioxide 28.6 Anion Gap 11.4 H BUN 14 Creatinine 1.2 H Est GFR (CKD-EPI 2020) 49.61 Glucose 136 H Calcium 8.9 Magnesium 1.6 L Total Bilirubin 0.6 AST 18 ALT 29 Alkaline Phosphatase 83 Troponin I 17 Total Protein 7.2 Albumin 3.3 L Procalcitonin < 0.10 Urine Color Urine Clarity Urine pH Ur Specific [place] Urine Protein Urine Ketones Urine Blood Urine Nitrite Urine Bilirubin Urine Urobilinogen Ur Leukocyte Esterase Urine RBC Urine WBC Ur Epithelial Cells Urine Crystals Urine Bacteria Urine Casts Urine Mucus Ur Culture Indicated? Urine Glucose COVID-19 Source Nasopharynx Cancelled SARS-CoV-2 (PCR) Negative Cancelled Influenza Type A (PCR) Negative Cancelled Influenza Type B (PCR) Negative Cancelled RSV (PCR) Negative Cancelled Add-On Test Request 04/15/25 04/15/25 04/15/25 05:40 06:07 07:36 WBC RBC Hgb Hct MCV MCH MCHC RDW Plt Count MPV Immature Gran % Neutrophils % Lymphocytes % Monocytes % Eosinophils % Basophils % Nucleated RBC % Absolute Neutrophils Absolute Lymphocytes Absolute Monocytes Absolute Eosinophils Absolute Basophils PT INR APTT VBG pH VBG pCO2 VBG pO2 VBG HCO3 VBG Total CO2 VBG O2 Saturation VBG Base Excess VBG Lactate 2.5 H* Sodium Potassium Chloride Carbon Dioxide Anion Gap BUN Creatinine Est GFR (CKD-EPI 2020) Glucose Calcium Magnesium Total Bilirubin AST ALT Alkaline Phosphatase Troponin I 30 50 Total Protein Albumin Procalcitonin Urine Color Yellow Urine Clarity Clear Urine pH 5.5 Ur Specific [place] 1.010 Urine Protein Negative Urine Ketones Negative Urine Blood Negative Urine Nitrite Positive H Urine Bilirubin Negative Urine Urobilinogen 0.2 Ur Leukocyte Esterase Negative Urine RBC Negative Urine WBC 0-2 Ur Epithelial Cells Few Urine Crystals Negative Urine Bacteria Moderate Urine Casts Negative Urine Mucus Negative Ur Culture Indicated? C&S Done As Ordered Urine Glucose Negative COVID-19 Source SARS-CoV-2 (PCR) Influenza Type A (PCR) Influenza Type B (PCR) RSV (PCR) Add-On Test Request 04/15/25 08:38 WBC RBC Hgb Hct MCV MCH MCHC RDW Plt Count MPV Immature Gran % Neutrophils % Lymphocytes % Monocytes % Eosinophils % Basophils % Nucleated RBC % Absolute Neutrophils Absolute Lymphocytes Absolute Monocytes Absolute Eosinophils Absolute Basophils PT INR APTT VBG pH VBG pCO2 VBG pO2 VBG HCO3 VBG Total CO2 VBG O2 Saturation VBG Base Excess VBG Lactate Sodium Potassium Chloride Carbon Dioxide Anion Gap BUN Creatinine Est GFR (CKD-EPI 2020) Glucose Calcium Magnesium Total Bilirubin AST ALT Alkaline Phosphatase Troponin I Total Protein Albumin Procalcitonin Urine Color Urine Clarity Urine pH Ur Specific [place] Urine Protein Urine Ketones Urine Blood Urine Nitrite Urine Bilirubin Urine Urobilinogen Ur Leukocyte Esterase Urine RBC Urine WBC Ur Epithelial Cells Urine Crystals Urine Bacteria Urine Casts Urine Mucus Ur Culture Indicated? Urine Glucose COVID-19 Source SARS-CoV-2 (PCR) Influenza Type A (PCR) Influenza Type B (PCR) RSV (PCR) Add-On Test Request DONE Last Vital Signs Temp 36.7 C 04/15/25 07:03 Pulse 84 04/15/25 08:36 Resp 23 04/15/25 08:36 BP 143/75 H 04/15/25 08:36 Pulse Ox 92 04/15/25 08:36 Time Spent Time spent with Patient: >75 minutes Time was spent: preparing to see the patient(eg.review tests), obtaining and/or reviewing separately otained hiistory, ordering medications,tests, procedures, referring, communicating with other health child care assistant, indepentently interpreting results, counseling the patient, care coordination and other
[2025-04-15 10:36] LABS: Hemoglobin A1C 7.0 % (<5.7)
--- NOTE | 2025-04-15 10:59 | W.PC.ACHO ---
Registration Status: REG ER Primary Language: Preferred Language: ED Information & Data Chief Complaint AMS/LOC 04/15/25 04:45 Other Complaint Fever 04/15/25 04:09 Triage Note [facility], 04/15/25 04:09 found to be altered by staff , incontinent of urine which is not normal for her, yelling out. temp 105 by EMS . Medical / Surgical History (Last Reviewed 10/08/24 @ 09:39 by Margarette Ojeda DPM) Cerebral venous thrombosis Cerebral venous infarction, acute Spinal stenosis Diverticular disease (Last Reviewed 10/08/24 @ 09:39 by Margarette Ojeda DPM) Synovial cyst of sacral region S/P cholecystectomy S/P craniotomy S/P cervical discectomy Most Recent Vital Signs Temperature 36.7 C 04/15/25 10:45 Temperature Source Oral 04/15/25 09:58 Pulse 77 04/15/25 10:50 Pulse 77 04/15/25 10:50 Respiratory Rate 18 04/15/25 10:50 Respiratory Effort Normal, Non-Labored 04/15/25 05:53 Respiratory Depth Normal 04/15/25 05:53 Respiratory Pattern Normal 04/15/25 05:53 Blood Pressure 156/133 H 04/15/25 10:46 Blood Pressure Mean 141 04/15/25 10:46 Blood Pressure Position Supine 04/15/25 04:13 Pulse Oximetry 90 L 04/15/25 10:50 Oxygen Delivery Method Room Air 04/15/25 10:22 Oxygen Flow Rate 0 04/15/25 10:22 Pain Level 4 04/15/25 10:45 Allergies spider venom Allergy (Mild, Verified 10/08/24 09:04) swelling Mora nut Allergy (Verified 10/08/24 09:04) Unknown unknown house dust Allergy (Verified 10/08/24 09:04) Unknown Penicillins Allergy (Verified 10/08/24 09:04) Unknown sulfamethoxazole (From Bactrim) Adverse Reaction (Intermediate, Verified 04/15/25 10:10) Other (See Comment) Emesis trimethoprim (From Bactrim) Adverse Reaction (Intermediate, Verified 04/15/25 10:10) Other (See Comment) Emesis Active Medications Generic Name Dose Route Start Last Admin Trade Name Freq PRN Reason Stop Dose Admin Dexamethasone 17 mg 04/15/25 04:30 04/15/25 05:03 Dexamethasone 10 Mg/Ml Vial 0.15 mg/kg (17 mg) 17 mg IVP Administration DIRECTED GUANACO Iohexol 100 ml 04/15/25 05:45 04/15/25 05:33 Omnipaque 350 Mg/Ml 100 Ml Btl IJ 05/15/25 23:59 100 ml DIRECTED GUANACO Administration Magnesium Gluconate 1,000 mg 04/15/25 06:35 04/15/25 08:44 Magnesium Gluconate 500 Mg Tab PO Not Given DAILY GUANACO Sodium Chloride 50 ml 04/15/25 05:45 04/15/25 05:34 Normal Saline - Diluent 50 Ml Vial IJ 50 ml DIRECTED GUANACO Administration Sodium Chloride 0 ml 04/15/25 05:33 04/15/25 08:17 Normal Saline Flush 10 Ml Syr IVP 10 ml PRN PRN Administration IV IV Catheter Type [Right Saline Lock Forearm] IV Catheter Type [Left Upper Saline Lock arm] IV Catheter Gauge [Right 20 Forearm] IV Catheter Gauge [Left Upper 18 arm] Diagnostics 04/15/25 04/15/25 04/15/25 Range/Units 08:38 07:36 06:07 WBC (4.4-10.8) 10^3/uL RBC (3.93-5.22) 10^6/uL Hgb (11.2-15.7) g/dL Hct (36.0-46.0) % MCV (80-95) fL MCH (27.0-33.0) pg MCHC (32.0-36.0) % RDW (11.7-14.6) % Plt Count (130-400) 10^3/uL MPV (8.0-11.0) fL Immature Gran % % Neutrophils % % Lymphocytes % % Monocytes % % Eosinophils % % Basophils % % Nucleated RBC % (0.0-0.3) % Absolute Neutrophils (1.2-6.7) 10^3/uL Absolute Lymphocytes (1.2-3.4) 10^3/uL Absolute Monocytes (0.1-0.8) 10^3/uL Absolute Eosinophils (0.0-0.7) 10^3/uL Absolute Basophils (0.0-0.2) 10^3/uL PT (9.1-11.1) sec INR (0.9-1.1) APTT (20.6-30.2) sec VBG pH (7.31-7.41) VBG pCO2 (41-51) mmHg VBG pO2 mmHg VBG HCO3 (23-28) mmol/L VBG Total CO2 (24-29) mmol/L VBG O2 Saturation % VBG Base Excess (-2-3) mmol/L VBG Lactate (<or=2.0) mmol/L Sodium (136-145) mmol/L Potassium (3.5-5.1) mmol/L Chloride (98-107) mmol/L Carbon Dioxide (21.0-32.0) mmol/L Anion Gap (3-11) mmol/L BUN (7-18) mg/dL Creatinine (0.55-1.02) mg/dL Est GFR (CKD-EPI 2020) (mL/min/1.73m2) Glucose (74-106) mg/dL Hemoglobin A1c (<5.7) % Calcium (8.5-10.1) mg/dL Magnesium (1.8-2.4) mg/dL Total Bilirubin (0.2-1.0) mg/dL AST (15-37) U/L ALT (14-59) U/L Alkaline Phosphatase (46-116) U/L Troponin I 50 (<or=51) ng/L Total Protein (6.4-8.2) g/dL Albumin (3.4-5.0) g/dL Procalcitonin ng/mL Urine Color Yellow (Yellow) Urine Clarity Clear (Clear) Urine pH 5.5 (5-8) Ur Specific [place] 1.010 (1.005-1.025) Urine Protein Negative (Neg-Trace) mg/dL Urine Ketones Negative (Negative) mg/dL Urine Blood Negative (Negative) Urine Nitrite Positive H (Negative) Urine Bilirubin Negative (Negative) Urine Urobilinogen 0.2 (Up to 0.2) mg/dL Ur Leukocyte Esterase Negative (Negative) Urine RBC Negative (0-2) HPF Urine WBC 0-2 (0-5) HPF Ur Epithelial Cells Few (Negative) HPF Urine Crystals Negative (Negative) HPF Urine Bacteria Moderate (Negative) HPF Urine Casts Negative (Negative) LPF Urine Mucus Negative (Negative) Ur Culture Indicated? C&S Done As Ordered Urine Glucose Negative (Negative) mg/dL Levetiracetam COVID-19 Source SARS-CoV-2 (PCR) (Negative) Influenza Type A (PCR) (Negative) Influenza Type B (PCR) (Negative) RSV (PCR) (Negative) Add-On Test Request DONE 04/15/25 04/15/25 04/15/25 Range/Units 05:40 04:59 04:50 WBC (4.4-10.8) 10^3/uL RBC (3.93-5.22) 10^6/uL Hgb (11.2-15.7) g/dL Hct (36.0-46.0) % MCV (80-95) fL MCH (27.0-33.0) pg MCHC (32.0-36.0) % RDW (11.7-14.6) % Plt Count (130-400) 10^3/uL MPV (8.0-11.0) fL Immature Gran % % Neutrophils % % Lymphocytes % % Monocytes % % Eosinophils % % Basophils % % Nucleated RBC % (0.0-0.3) % Absolute Neutrophils (1.2-6.7) 10^3/uL Absolute Lymphocytes (1.2-3.4) 10^3/uL Absolute Monocytes (0.1-0.8) 10^3/uL Absolute Eosinophils (0.0-0.7) 10^3/uL Absolute Basophils (0.0-0.2) 10^3/uL PT (9.1-11.1) sec INR (0.9-1.1) APTT (20.6-30.2) sec VBG pH (7.31-7.41) VBG pCO2 (41-51) mmHg VBG pO2 mmHg VBG HCO3 (23-28) mmol/L VBG Total CO2 (24-29) mmol/L VBG O2 Saturation % VBG Base Excess (-2-3) mmol/L VBG Lactate 2.5 H* (<or=2.0) mmol/L Sodium (136-145) mmol/L Potassium (3.5-5.1) mmol/L Chloride (98-107) mmol/L Carbon Dioxide (21.0-32.0) mmol/L Anion Gap (3-11) mmol/L BUN (7-18) mg/dL Creatinine (0.55-1.02) mg/dL Est GFR (CKD-EPI 2020) (mL/min/1.73m2) Glucose (74-106) mg/dL Hemoglobin A1c (<5.7) % Calcium (8.5-10.1) mg/dL Magnesium (1.8-2.4) mg/dL Total Bilirubin (0.2-1.0) mg/dL AST (15-37) U/L ALT (14-59) U/L Alkaline Phosphatase (46-116) U/L Troponin I 30 (<or=51) ng/L Total Protein (6.4-8.2) g/dL Albumin (3.4-5.0) g/dL Procalcitonin ng/mL Urine Color (Yellow) Urine Clarity (Clear) Urine pH (5-8) Ur Specific [place] (1.005-1.025) Urine Protein (Neg-Trace) mg/dL Urine Ketones (Negative) mg/dL Urine Blood (Negative) Urine Nitrite (Negative) Urine Bilirubin (Negative) Urine Urobilinogen (Up to 0.2) mg/dL Ur Leukocyte Esterase (Negative) Urine RBC (0-2) HPF Urine WBC (0-5) HPF Ur Epithelial Cells (Negative) HPF Urine Crystals (Negative) HPF Urine Bacteria (Negative) HPF Urine Casts (Negative) LPF Urine Mucus (Negative) Ur Culture Indicated? Urine Glucose (Negative) mg/dL Levetiracetam COVID-19 Source Cancelled Nasopharynx SARS-CoV-2 (PCR) Cancelled Negative (Negative) Influenza Type A (PCR) Cancelled Negative (Negative) Influenza Type B (PCR) Cancelled Negative (Negative) RSV (PCR) Cancelled Negative (Negative) Add-On Test Request 04/15/25 04/15/25 Range/Units 04:46 04:40 WBC 22.65 H (4.4-10.8) 10^3/uL RBC 4.22 (3.93-5.22) 10^6/uL Hgb 12.0 (11.2-15.7) g/dL Hct 37.6 (36.0-46.0) % MCV 89 (80-95) fL MCH 28.4 (27.0-33.0) pg MCHC 31.9 L (32.0-36.0) % RDW 14.4 (11.7-14.6) % Plt Count 225 (130-400) 10^3/uL MPV 10.3 (8.0-11.0) fL Immature Gran % 1.2 % Neutrophils % 81.2 % Lymphocytes % 12.3 % Monocytes % 4.8 % Eosinophils % 0.2 % Basophils % 0.3 % Nucleated RBC % 0.0 (0.0-0.3) % Absolute Neutrophils 18.39 H (1.2-6.7) 10^3/uL Absolute Lymphocytes 2.79 (1.2-3.4) 10^3/uL Absolute Monocytes 1.09 H (0.1-0.8) 10^3/uL Absolute Eosinophils 0.05 (0.0-0.7) 10^3/uL Absolute Basophils 0.07 (0.0-0.2) 10^3/uL PT 10.9 (9.1-11.1) sec INR 1.1 (0.9-1.1) APTT 23.5 (20.6-30.2) sec VBG pH 7.47 H (7.31-7.41) VBG pCO2 40 L (41-51) mmHg VBG pO2 35 mmHg VBG HCO3 29 H (23-28) mmol/L VBG Total CO2 26 (24-29) mmol/L VBG O2 Saturation 67 % VBG Base Excess 6 H (-2-3) mmol/L VBG Lactate 2.7 H* (<or=2.0) mmol/L Sodium 140 (136-145) mmol/L Potassium 3.5 (3.5-5.1) mmol/L Chloride 100 (98-107) mmol/L Carbon Dioxide 28.6 (21.0-32.0) mmol/L Anion Gap 11.4 H (3-11) mmol/L BUN 14 (7-18) mg/dL Creatinine 1.2 H (0.55-1.02) mg/dL Est GFR (CKD-EPI 2020) 49.61 (mL/min/1.73m2) Glucose 136 H (74-106) mg/dL Hemoglobin A1c 7.0 H (<5.7) % Calcium 8.9 (8.5-10.1) mg/dL Magnesium 1.6 L (1.8-2.4) mg/dL Total Bilirubin 0.6 (0.2-1.0) mg/dL AST 18 (15-37) U/L ALT 29 (14-59) U/L Alkaline Phosphatase 83 (46-116) U/L Troponin I 17 (<or=51) ng/L Total Protein 7.2 (6.4-8.2) g/dL Albumin 3.3 L (3.4-5.0) g/dL Procalcitonin < 0.10 ng/mL Urine Color (Yellow) Urine Clarity (Clear) Urine pH (5-8) Ur Specific [place] (1.005-1.025) Urine Protein (Neg-Trace) mg/dL Urine Ketones (Negative) mg/dL Urine Blood (Negative) Urine Nitrite (Negative) Urine Bilirubin (Negative) Urine Urobilinogen (Up to 0.2) mg/dL Ur Leukocyte Esterase (Negative) Urine RBC (0-2) HPF Urine WBC (0-5) HPF Ur Epithelial Cells (Negative) HPF Urine Crystals (Negative) HPF Urine Bacteria (Negative) HPF Urine Casts (Negative) LPF Urine Mucus (Negative) Ur Culture Indicated? Urine Glucose (Negative) mg/dL Levetiracetam Pending COVID-19 Source SARS-CoV-2 (PCR) (Negative) Influenza Type A (PCR) (Negative) Influenza Type B (PCR) (Negative) RSV (PCR) (Negative) Add-On Test Request 04/15/25 08:05 Blood Culture - Pending Blood 04/15/25 06:07 Urine Culture - Pending Urine - Cath Marshall Indwelling 04/15/25 04:40 Blood Culture - Pending Blood [id number] Documentation Fingerstick Glucose Start: 04/15/25 05:13 Freq: Status: Active Protocol: Activity Type Activity Date Activity User E-sign Co-sign Detail Recorded Client Recorded Date Recorded By Document 04/15/25 05:12 DONNIE DAJERED(3) [id number] 04/15/25 05:13 BARBARAG DAEMON(4) Intake and Output - 24 Hour Total 04/15/25 04:06 thru 04/15/25 10:22 Intake Total 1640 Output Total 1425 Balance 215 Weight 112.899 kg Intake: IV 1640 Output: Urine 1425 Other: Urine Color Yellow Urine Appearance Clear Urinary Catheter Urinary Catheter Date of 04/15/25 Insertion [Urethral (Marshall)] Time of insertion [Urethral ( 06:10 Marshall)] Falls Risk Assessment History of Falls Previous History 04/15/25 04:13 Contributing Factors Confusion,Impairments, 04/15/25 04:13 Incontinence Ambulatory Aids Uses ambulatory device + 04/15/25 04:13 Tubes/Lines With any additional score 04/15/25 04:13 Gait Evaluation W/any additional score 04/15/25 04:13 Cognition No cognitive impairment 04/15/25 04:13 Fall Total Score 94 04/15/25 04:13 Level of Risk Maximum Risk 04/15/25 04:13 Problems (Last Reviewed 10/08/24 @ 09:39 by Margarette Ojeda DPM) Venous thromboembolism (VTE) (Acute) On deep vein thrombosis (DVT) prophylaxis (Acute) ALY (acute kidney injury) (Acute) Breakthrough seizure (Acute) Severe sepsis (Acute) Hypomagnesemia (Acute) Myocardial injury (Acute) Acute UTI (Acute) Brain tumor (Acute) Seizure (Acute) Diabetes (Chronic) Hypertension (Chronic) Hyperlipidemia (Acute) GERD (gastroesophageal reflux disease) (Chronic) COPD (chronic obstructive pulmonary disease) (Chronic) 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 Information / Comments: Report received from: pt came in obtunded and AMS, temp of 105 and HR 130s, LA 2.7, Marshall placed, pt given IV ABX, tylenol. current temp is 36.7 and pt is feeling much better. Gianna RN
[2025-04-15] MEDS: cefTRIAXone 1 GM/50 ML BAG IVPB (13:56)
[2025-04-15] MEDS: Normal Saline 100 ML (14:04)
[2025-04-15] MEDS: Lactated Ringers 1,000 ML 125 ML IV (15:02)
[2025-04-15] MEDS: VANCOMYCIN/WATER (PEG) 750 MG/150 ML BAG 150 MG IVPB (17:32)
[2025-04-15] MEDS: Lacosamide 100 MG TAB 200 MG PO (20:28)
[2025-04-15] MEDS: Omega-3 Fatty Acids 1000 MG CAP PO (20:28)
[2025-04-15] MEDS: Apixaban 5 MG TAB PO (20:29)
[2025-04-15] MEDS: levETIRAcetam 500 MG TAB PO (20:29)
[2025-04-16 03:44] VITALS: BP 131/56; PULSE 62; RESP 16; TEMP 36.3; O2SAT 93
[2025-04-16] MEDS: VANCOMYCIN/WATER (PEG) 750 MG/150 ML BAG 150 MG IVPB ×2 (05:44→18:31)
[2025-04-16] MEDS: Omeprazole 20 MG CAPCR 40 MG PO (06:33)
[2025-04-16 06:53] LABS: Abs Immature Grans 0.19 10^3/uL (0.0-0.06); HCT 32.6 % (36.0-46.0); HGB 10.6 g/dL (11.2-15.7); Immature Grans % 0.8 %; MCH 29.5 pg (27.0-33.0); MCHC 32.5 % (32.0-36.0); MCV 91 fL (80-95); MPV 9.9 fL (8.0-11.0); Platelet Count 190 10^3/uL (130-400); RBC 3.59 10^6/uL (3.93-5.22); RDW 14.6 % (11.7-14.6); RDW-SD 48.8 fL
[2025-04-16 07:05] LABS: Anion Gap 7.9 mmol/L (3-11); BUN 12 mg/dL (7-18); CO2 26.1 mmol/L (21.0-32.0); Calcium 8.9 mg/dL (8.5-10.1); Chloride 108 mmol/L (98-107); Glucose 122 mg/dL (74-106); Magnesium 1.9 mg/dL (1.8-2.4); Potassium 3.8 mmol/L (3.5-5.1); Sodium 142 mmol/L (136-145)
[2025-04-16 07:06] LABS: WBC 25.16 10^3/uL (4.4-10.8)
[2025-04-16 07:26] LABS: RBC Morphology Normal
[2025-04-16 07:40] VITALS: BP 125/67; PULSE 57; RESP 16; TEMP 36.8; O2SAT 94
[2025-04-16] MEDS: Apixaban 5 MG TAB PO ×2 (08:44→20:26)
[2025-04-16] MEDS: Cyanocobalamin 500 MCG TAB 1000 MCG PO (08:46)
[2025-04-16] MEDS: Magnesium Gluconate 500 MG TAB 1000 MG PO (08:46)
[2025-04-16] MEDS: Omega-3 Fatty Acids 1000 MG CAP PO ×2 (08:48→20:26)
[2025-04-16] MEDS: levETIRAcetam 500 MG TAB PO ×2 (08:48→20:26)
[2025-04-16] MEDS: Calcium Carbonate 1.5 GM TAB PO (08:48)
[2025-04-16] MEDS: Lacosamide 100 MG TAB 200 MG PO ×2 (08:49→20:26)
[2025-04-16] MEDS: Cholecalciferol (Vitamin D3) 1,000 UNIT TAB 2000 UNITS PO (08:49)
--- NOTE | 2025-04-16 09:27 | PDOC.CMIN ---
Date of service: 04/16/25 Time of Service: 09:28 Care Management Initial Assmt Initial Assessment Reason for Hospitalization: sepsis, UTI Functional Status/Living Situation Patient Presentation: presented to the ED yesterday morning, from [facility], with a UTI. She presented with fever and altered mental status. EMS reported that had a temp to 105 and was tachycardic to the 130s. Her blood cultures were repeated today, as her last set grew gram positive cocci. was sitting up in the bedside chair when CM met with her today. She was very pleasant, and quite interesting to converse with. is a current short-term resident at the [facility]. She told that she was there because she was falling a lot at home. She has a paid caregiver 5d/week when she is home, and this attending ambulatory care has come with her to support her at [facility], as well, so she believes that the caregiver will be continue to be available to her when she is discharged. is concerned that she has not met with anyone to help her with re-enrollment for her Medicare. CM reached out to [facility] to request help for her, but had to leave a message. 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: N 06/14/21, 09:27 Date Asked 04/15/25 04/15/25, 11:04 AD Date Reviewed COLST On File at [facility] COLST Date Scanned Code Status Resuscitation Status Full Code Insurance Coverage/Financial Issues Insurance: BC/BS [place] [facility] Advantage Care Team Visit Care Team Role Provider Type Ariadna Story APRN MD [facility] STAFF PHYSICIAN Francine Owen Primary Care Provider PHYSICIANS COMMUTATOR ASSEMBLER Brooke Gamble RDN, [facility] Other Providers CHUTE GREASER Ml Norris Other Providers OTHER Brendan Pricila, RDN Other Providers CHUTE GREASER oJby Bernardo MD Emergency Provider [facility] STAFF PHYSICIAN Eduar Gonzalez MD Admit Provider [facility] STAFF PHYSICIAN Attending Provider Discharge Potential Discharge Needs: Other (facility provider f/u) Anticipated Barriers to Discharge: None Identified (will need results of the blood cultures to determine her course of treatment) and Medical Status Patient/Family Education Needs: Review discharge instructions, discuss Ask Me Three Transportation: [facility] RCT Transportation: Wheel chair van Plan: Anticipate that will return to [facility] once she is medically stable. She will f/u with the facility provider and continue per her plan of care. She will transport via [facility] wheelchair van. CM will continue to follow and update the plan as needed. Social Determinants of Health Screening Social Determinants of health last assessed in clinic: 04/16/25 Will the Patient Participate in the Screening?: Yes Do you worry about having a steady place to live?: no Problems where you live: no known problems In the past 12 months, have you had to go without electric, gas, oil or water in your home?: no 1. Within the past 12 months, we worried whether our food would run out before we got money to buy more.: Don't know/refused 2. Within the past 12 months, the food we bought just didn't last and we didn't have money to get more.: Don't know/refused Has lack of transportation kept you from medical appointments or from doing things needed for daily living?: no Has anyone in your life made you feel unsafe or unsupported?: no How hard is it for you to pay for the very basics like food, housing, medical care, and heating? Would you say it is:: Not hard at all Do you want help finding or keeping work or a job?: I do not need or want help If for any reason you need help with day-to-day activities such as bathing, preparing meals, shopping, managing finances, etc., do you get the help you need?: I don’t need any help How often do you feel lonely or isolated from those around you?: Rarely Do you speak a language other than Belarusian at home?: No Health Related Social Needs Health related social needs: feeling lonely/isolated (Z60.8) Health related social needs details: says sometimes she has a little loneliness, but is not concerned PFSH All Active Problems (Updated 04/15/25 @ 19:10 by Ariadna Story APRN) Acute kidney injury superimposed on CKD (Acute) Venous thromboembolism (VTE) (Acute) On deep vein thrombosis (DVT) prophylaxis (Acute) ALY (acute kidney injury) (Acute) Breakthrough seizure (Acute) Severe sepsis (Acute) Hypomagnesemia (Acute) Myocardial injury (Acute) Acute UTI (Acute) Brain tumor (Acute) Seizure (Acute) Sepsis (Acute) PAD (peripheral artery disease) (Acute) PVD (peripheral vascular disease) (Chronic) Dystrophia unguium (Acute) Onychomycosis (Acute) Ingrown toenail (Acute) Diabetes (Chronic) Vitamin B12 deficiency (non anemic) (Acute) Hypertension (Chronic) Hyperlipidemia (Acute) GERD (gastroesophageal reflux disease) (Chronic) Peripheral neuropathy (Acute) COPD (chronic obstructive pulmonary disease) (Chronic) Obstructive sleep apnea (Chronic) 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) Meningioma (Acute) Medical History Cerebral venous thrombosis Cerebral venous infarction, acute Spinal stenosis cervical Diverticular disease Surgical History Synovial cyst of sacral region resection S/P cholecystectomy S/P craniotomy 1999 and 2018 S/P cervical discectomy C5-6 decompression for cord impingement Family History Mother Stroke Father Diabetes Heart disease Social History Smoking/Tobacco Use Status: Current every day Tobacco Type: cigarettes Smoking risk assessment performed?: Yes Alcohol Intake: never Drug use: Never Substance use type: marijuana Household members: none Housing: house Number of Children: 2 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
[2025-04-16] MEDS: Dexamethasone 1 MG TAB PO (10:07)
[2025-04-16 10:58] VITALS: BP 125/60; PULSE 61; RESP 18; TEMP 37.2; O2SAT 98
--- NOTE | 2025-04-16 13:09 | CHAPLAIN ---
is here from [facility] where she's currently staying to get stronger, and lives in [place] otherwise. She's from [place] and finds [place] to be colder, but with less snow. said she is a Pentecostal agnostic and said I could pray for her and she offered to pray for me. She has her phone here and is waiting for someone from [facility] to bring her special soaps, shampoo, and phone charging cord here to her. I explained my role and offered support.
[2025-04-16] MEDS: cefTRIAXone 1 GM/50 ML BAG IVPB (13:23)
--- NOTE | 2025-04-16 14:38 | IN_ITS ---
PT Notes Visit Reasons: UTI, Seizures Inpatient Physical Therapy Evaluation Date: 04/16/25 Referring Doctor: Ariadna Story PT Orders: PT CONSULT: safety consult for d/c Precautions: epilepsy Patient Profile/Admitting Diagnosis: UTI, seizures Subjective: Pt presented to the ED from [facility] and rehab with increased confusion. She has a history of seizures on oral Keppra and lacosamide, cerebral venous infarction, brain meningioma, PVD, PAD, diabetes, hypertension hyperlipidemia, GERD COPD CKD stage III. She had a witnessed seizure in the ED. She was diagnosed with a UTI and then admitted to the [facility] floor. She states she normally lives in [facility] but has been at the rehab center for the past month trying to get stronger. She hopes to get back there soon because she has a treatment scheduled for her meningioma next week. She has been using a RW recently. Objective: General Observation: sitting up in the chair, has been able to get into and out of the bathroom with nursing assistance Mental Status: A+Ox4 Pain: none Vital Signs: monitored by nursing, currently on tele Strength: Right/Left Lower Extremity: R/L hip flex 4/5, R/L knee ext 4+/5, R/L ankle DF 4+/5 Sensation: Describes hyposensitivity on LLE from her lateral knee to her ankle Bed Mobility/Transfers: sit to stand w/CGA stand to sit w/CGA Gait: Ambulates 30 ft w/RW and CGA Balance: Static Sitting: Good Dynamic Sitting: Good Static Standing: Fair Dynamic Standing: Fair - able to march in place with use of RW for UE support Special Tests: Mobility Limitations Standardized Measure [facility] AM-PAC 6 clicks Basic Mobility Inpatient Short Form: Raw Score: 17 CMS Score: 50.57% Informed Consent/Education: Patient instructed in purpose of PT consult and plan of care. Assessment: Patient is doing well overall but is still limited to about 30 ft of ambulation with a RW. It sounds like this is what she was able to do prior to this admission. She is functioning well enough to return back to [facility] when medically appropriate which she is hoping for soon. She demonstrates weaknesses in her bilat LEs which is likely the main cause for her lack of mobility. Exercises were reviewed with her that she had been doing at rehab which she seems compliant with continuing. She will continue to benefit from PT while in the hospital to progress her functionally as tolerated. Patient is assessed as a [x] Low [id number] complexity based on the following: History: Low Examination: Low Presentation: Low Decision Making: Low Goals: Goals X1 week 1. Sit-Stand independently 2. Stand-Sit independently 3. Bed-Chair independently 4. Chair-Bed independently 5. Gait - ambulates 75 ft w/RW w/SBA Plan of Care/Treatment Plan: 1-2x/day, 7 days/week x 1 week. Plan of care has been reviewed with the DERMATOPATHOLOGIST providing the service under Physical Therapy direction. Initiate Physical Therapy intervention for strengthening, bed mobility, transfers, gait, stairs, balance training, use of assistive device. DISCHARGE RECOMMENDATIONS: [x] SNF for continued rehabilitation TREATMENT CODE/TIME: Shorty Evangelista ([id number]) x1 - 35 min
--- NOTE | 2025-04-16 14:55 | W.PM.PROGNOT ---
Date of Service Date of service: 04/16/25 Time of Service: 14:56 Assessment and Plan Assessment and plan (1) Severe sepsis: Status: Acute Assessment and plan: WBC 22, tachycardia 91-106, lactate 2.5 source UTI Severe Cr 1.6 Blood Cultures : + for GPC on vancomycin Repeat blood cultures Urine culture: E coli (2) Acute UTI: Status: Acute Assessment and plan: UA positive . 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: Status: Acute Assessment and plan: On home dose lacosamide and Keppra- IV load given in ED- on oral home dose Keppra level pending Contact SNF for clear doses on AUG- pending (5) Seizure: Status: Acute Assessment and plan: Most likely breakthrough in the setting of severe sepsis UTI- on AED at home - will continue on home regimen - Keppra IV load in the ED (6) Diabetes: Status: Chronic Assessment and plan: ongoing AC &HS fingersticks SSI coverage (7) Breakthrough seizure: Status: Acute Assessment and plan: As per point 5 (8) On deep vein thrombosis (DVT) prophylaxis: Status: Acute Assessment and plan: On Eliquis d/t history of PE and DVTs- no DVT prophylaxis needed (9) ALY (acute kidney injury): Status: Acute Assessment and plan: resolved (10) Hypertension: Status: Chronic Assessment and plan: stable continue home meds (11) Hyperlipidemia: Status: Acute Assessment and plan: On statins (12) GERD (gastroesophageal reflux disease): Status: Chronic Assessment and plan: On PPI (13) COPD (chronic obstructive pulmonary disease): Status: Chronic Assessment and plan: No exacerbation On home dose regimen (14) Meningioma: Status: Acute Assessment and plan: History of multiple cranial surgery due to meningioma most likely the cause of the seizures now on antiepileptics was on Avastin -held (15) Hypomagnesemia: Status: Acute Assessment and plan: supplemented and resolved Discussed with Dr Hawley Subjective Subjective Patient reports: no new complaints, feels better, tolerating liquids well, tolerating a regular diet, voiding w/o difficulty and bowel movement; denies diarrhea, blood in stool, nausea, vomiting, shortness of breath or fever Exam Narrative Exam Narrative: Alert and oriented X4 , no acute distress, no neurological focal deficit, non-icteric sclera, no JDV, unlabored breathing clear lungs, S1 S2 regular , PPPX4 , abdomen is large non-tender and non-distended, equal strength to upper and lower extremities bilaterally Objective Last Vital Signs Temp 37.2 C 04/16/25 10:58 Pulse 61 04/16/25 10:58 Resp 18 04/16/25 10:58 BP 125/60 04/16/25 10:58 Pulse Ox 98 04/16/25 10:58 Laboratory Results - last 24 hr 04/15/25 04/16/25 19:04 06:36 WBC 25.16 H* RBC 3.59 L Hgb 10.6 L Hct 32.6 L MCV 91 MCH 29.5 MCHC 32.5 RDW 14.6 Plt Count 190 MPV 9.9 Immature Gran % 0.8 Neutrophils % 88.8 Lymphocytes % 3.9 Monocytes % 6.2 Eosinophils % 0.0 Basophils % 0.3 Nucleated RBC % 0.0 Absolute Neutrophils 22.34 H Absolute Lymphocytes 0.98 L Absolute Monocytes 1.56 H Absolute Eosinophils 0.00 Absolute Basophils 0.08 RBC Morphology Normal VBG Lactate 1.8 Sodium 142 Potassium 3.8 Chloride 108 H Carbon Dioxide 26.1 Anion Gap 7.9 BUN 12 Creatinine 0.8 Est GFR (CKD-EPI 2020) 80.71 Glucose 122 H Calcium 8.9 Magnesium 1.9 Time Spent with Patient Time Spent with Patient: >50 minutes Time was spent: preparing to see the patient(eg.review tests), obtaining and/or reviewing separately otained hiistory, ordering medications,tests, procedures, referring, communicating with other health child care assistant, indepentently interpreting results, counseling the patient, care coordination and other
[2025-04-16 18:32] LABS: Vancomycin, Random 11.7 ug/mL
[2025-04-16] MEDS: Normal Saline Flush 10 ML SYR IVP ×2 (18:38→20:27)
[2025-04-16 19:45] VITALS: BP 151/85; PULSE 70; RESP 18; TEMP 36.5; O2SAT 97
[2025-04-16] MEDS: Acyclovir 400 MG TAB PO (20:26)
[2025-04-16 23:07] VITALS: BP 132/45; PULSE 67; RESP 16; TEMP 36.4; O2SAT 95
[2025-04-17 03:45] VITALS: BP 131/53; PULSE 57; RESP 18; TEMP 36.7; O2SAT 93
[2025-04-17] MEDS: VANCOMYCIN/WATER (PEG) 750 MG/150 ML BAG 150 MG IVPB (05:50)
[2025-04-17] MEDS: Omeprazole 20 MG CAPCR 40 MG PO (06:16)
[2025-04-17 06:20] LABS: Abs Immature Grans 0.06 10^3/uL (0.0-0.06); HCT 33.5 % (36.0-46.0); HGB 10.7 g/dL (11.2-15.7); Immature Grans % 0.5 %; MCH 28.9 pg (27.0-33.0); MCHC 31.9 % (32.0-36.0); MCV 91 fL (80-95); MPV 10.4 fL (8.0-11.0); Platelet Count 191 10^3/uL (130-400); RBC 3.70 10^6/uL (3.93-5.22); RDW 14.8 % (11.7-14.6); RDW-SD 48.9 fL; WBC 11.44 10^3/uL (4.4-10.8)
[2025-04-17 06:32] LABS: Anion Gap 9.1 mmol/L (3-11); BUN 19 mg/dL (7-18); CO2 25.9 mmol/L (21.0-32.0); Calcium 8.7 mg/dL (8.5-10.1); Chloride 105 mmol/L (98-107); Glucose 113 mg/dL (74-106); Potassium 3.9 mmol/L (3.5-5.1); Sodium 140 mmol/L (136-145)
[2025-04-17 07:34] VITALS: BP 148/71; PULSE 57; RESP 16; TEMP 35.9; O2SAT 96
[2025-04-17] MEDS: Dexamethasone 1 MG TAB PO (08:53)
[2025-04-17] MEDS: Omega-3 Fatty Acids 1000 MG CAP PO (08:53)
[2025-04-17] MEDS: Magnesium Gluconate 500 MG TAB 1000 MG PO (08:53)
[2025-04-17] MEDS: Lacosamide 100 MG TAB 200 MG PO ×2 (08:53→20:22)
[2025-04-17] MEDS: Cholecalciferol (Vitamin D3) 1,000 UNIT TAB 2000 UNITS PO (08:54)
[2025-04-17] MEDS: Calcium Carbonate 1.5 GM TAB PO (08:54)
[2025-04-17] MEDS: Cyanocobalamin 500 MCG TAB 1000 MCG PO (08:54)
[2025-04-17] MEDS: Acyclovir 400 MG TAB PO ×3 (08:54→20:22)
[2025-04-17] MEDS: Apixaban 5 MG TAB PO (08:54)
[2025-04-17] MEDS: levETIRAcetam 500 MG TAB PO ×2 (08:54→20:22)
[2025-04-17] MEDS: Losartan 25 MG TAB PO (08:54)
[2025-04-17] MEDS: Normal Saline Flush 10 ML SYR IVP ×5 (08:55→20:22)
--- NOTE | 2025-04-17 11:00 | W.PM.PROGNOT ---
Date of Service Date of service: 04/17/25 Time of Service: 11:01 Assessment and Plan Assessment and plan (1) Severe sepsis: Start date: 04/17/25 Start time: 12:58 Status: Acute Assessment and plan: On presentation WBC 22, tachycardia 91-106, lactate 2.7 source UTI- secondary source confirmed as blood cultures grew GPC - Staph. aureus in 2 bottles Severity Cr 1.2 on presentation - now 1.1 03/2325: Blood Cultures : Staph. aureus in 2 bottles 04/16/25: Repeat blood cultures still pending Urine culture: E coli no sensitivity at 12:58 Repeat lactate: 2.5 then negative on subsequent day Trend WBC Echocardiogram on 04/19/25 [facility] [place] ID consult placed (2) Staphylococcus aureus bacteremia with sepsis: Status: Acute Assessment and plan: As above (3) Staphylococcus aureus bacteremia: Status: Acute Assessment and plan: As per point 1 (4) Acute UTI: Start date: 04/17/25 Start time: 13:02 Status: Acute Assessment and plan: UA positive . culture grew E coli no sensitivity available Ongoing ceftriaxone (5) Central venous catheter in place on admission: Status: Acute Assessment and plan: Port to right anterior chest - Surgery consult in the setting of point 1, 2, 3 and Eliquis on hold now-for most likely beside procedure in AM And as per point 6 (6) Chronic anticoagulation: Status: Acute Assessment and plan: On Eliquis for Hx o multiple DVT's and PE Held at this time and resume s/p R port removal (7) Acute kidney injury superimposed on CKD: Start date: 04/17/25 Start time: 13:07 Status: Acute Assessment and plan: Cr trending down IVF discontinued Losartan resumed but patient stating that she is not aware of using this ARB and feeling foggy after receiving - no hypotension- SNF facility contacted for MAR again today for documents where doses of drugs are legible BMP in AM 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: Start date: 04/17/25 Start time: 13:07 Status: Acute Assessment and plan: Continue home dose lacosamide and Keppra- IV load given in ED- on oral home dose Keppra level pending SNF MAR transmission pending s/p request again today for clear doses (9) Seizure: Start date: 04/17/25 Start time: 13:08 Status: Acute Assessment and plan: Presenting with most likely breakthrough seizure in the setting of severe sepsis UTI and staphylococcus aureus bacteremia - Continue home dose AED And as above (10) Diabetes: Start date: 04/17/25 Start time: 13:12 Status: Chronic Assessment and plan: Continue ongoing AC &HS fingersticks A1C 7.0 seems to be around goal SSI coverage Resume home antihyperglycemic regimen at discharge- hold while inpatient (11) Breakthrough seizure: Status: Acute Assessment and plan: As per point 5 (12) ALY (acute kidney injury): Status: Acute Assessment and plan: resolved will continue to monitor BMP in AM (13) Hypertension: Status: Chronic Assessment and plan: stable Losartan held until dose confirmation per SNF MAR (14) Hyperlipidemia: Status: Acute Assessment and plan: home dose statins therapy ordered (15) GERD (gastroesophageal reflux disease): Status: Chronic Assessment and plan: On home dose PPI (16) COPD (chronic obstructive pulmonary disease): Status: Chronic Assessment and plan: No exacerbation Continue home dose regimen (17) Meningioma: Status: Acute Assessment and plan: History of multiple cranial surgery due to meningioma most likely the cause of the seizures now on antiepileptics was on Avastin -held and will not be able to get her infusion on 04/21 in the setting of point 1 (18) Hypomagnesemia: Status: Acute Assessment and plan: supplemented on 04/17 and resolved on 04/16 Mag in AM (19) Contraindication to deep vein thrombosis (DVT) prophylaxis: Start date: 04/17/25 Start time: 13:26 Status: Acute Assessment and plan: Was on Eliquis held 04/17 -for port removal - Considering resumption VS DVT prophylaxis in appropriate time frame and risk assessment Discussed with Dr Hawley Subjective Subjective Patient reports: no new complaints, feels better, tolerating liquids well, tolerating a regular diet, voiding w/o difficulty and bowel movement; denies diarrhea, blood in stool, nausea, vomiting, shortness of breath or fever Objective Last Vital Signs Temp 35.9 C L 04/17/25 07:34 Pulse 57 L 04/17/25 07:34 Resp 16 04/17/25 07:34 BP 148/71 H 04/17/25 07:34 Pulse Ox 96 04/17/25 07:34 Laboratory Results - last 24 hr 04/16/25 04/17/25 18:12 06:10 WBC 11.44 H RBC 3.70 L Hgb 10.7 L Hct 33.5 L MCV 91 MCH 28.9 MCHC 31.9 L RDW 14.8 H Plt Count 191 MPV 10.4 Immature Gran % 0.5 Neutrophils % 81.3 Lymphocytes % 9.5 Monocytes % 7.5 Eosinophils % 0.9 Basophils % 0.3 Nucleated RBC % 0.0 Absolute Neutrophils 9.30 H Absolute Lymphocytes 1.09 L Absolute Monocytes 0.86 H Absolute Eosinophils 0.10 Absolute Basophils 0.03 Sodium 140 Potassium 3.9 Chloride 105 Carbon Dioxide 25.9 Anion Gap 9.1 BUN 19 H Creatinine 1.1 H Est GFR (CKD-EPI 2020) 55.07 Glucose 113 H Calcium 8.7 Random Vancomycin 11.7 Time Spent with Patient Time Spent with Patient: >50 minutes Time was spent: preparing to see the patient(eg.review tests), obtaining and/or reviewing separately otained hiistory, ordering medications,tests, procedures, referring, communicating with other health ocular care technologist, indepentently interpreting results, counseling the patient, care coordination and other
[2025-04-17 11:24] VITALS: BP 143/75; PULSE 73; RESP 16; TEMP 36.2; O2SAT 98
--- NOTE | 2025-04-17 12:37 | PTTR_ITS ---
PT Notes Visit Reasons: UTI, Seizures Inpatient Physical Therapy Treatment Note [facility] Date: 04/17/2025 PRECAUTIONS:fall risk, standard, Seizure, IV access Left upper arm SUBJECTIVE: Patient approached for PT session and reported feeling off and slightly lightheaded. TE Geiger notified and vitals taken OBJECTIVE: Patient presented reclined in chair on her phone. PAIN: Denies VITALS: BP 143/75, HR 73, [id number]% on RA Therapeutic Activities (84071e[]): Direct one-on-one instruction in dynamic activities to improve functional performance. Provided skilled cues and instruction on performance and technique throughout. BED MOBILITY/TRANSFERS Sit-stand: Contact-guard assist x 4 trials a.m. session Stand-sit: Contact-guard assist x 4 trials a.m. session Chair–chair: Contact-guard assist with verbal cues for safe approach x 4 trials Ambulation Facilitated safe and correct performance of level surface ambulation covering a distance of 20 feet x 2, 30 feet x 1 using use front wheeled walker with contact-guard assist increased time. Did not report of any increased pain. Denied headache, chest pain, and lightheadedness throughout activity. Minimal verbal cueing provided for AD management, directional changes, and posture. Pt demonstrates shortened step length and poor foot clearance B LE Neuromuscular Re-education ([id number][]): Activities that facilitate re-education of movement balance, posture, coordination, and proprioception or kinesthetic sense, requiring skilled tactile and verbal cues Exercises/techniques: Facilitation of ankle and hip strategies with 1 UE support on walker reaching ,weight shift with stagger stance. ASSESSMENT:Pt reported feeling Off at start of session. RN notified. Pt able to participate without further sensations of being off Pt demonstrates impaired fool clearance during gait and transfers. Pt required cues for upright posture during standing tasks PLAN: 1-2x/day, 7 days/week x 1 week. Plan of care has been reviewed with the STORES LABORER providing the service under Physical Therapy direction. Initiate Physical Therapy intervention for strengthening, bed mobility, transfers, gait, stairs, balance training, use of assistive device. TREATMENT CODE/TIME: 27855, [id number] DISCHARGE RECOMMENDATION: Return to SNF with continued skilled PT
[2025-04-17] MEDS: cefTRIAXone 1 GM/50 ML BAG IVPB (15:05)
[2025-04-17 15:22] VITALS: BP 151/73; PULSE 60; RESP 16; TEMP 36.3; O2SAT 97
[2025-04-17] MEDS: Acetaminophen 500 MG TAB 1000 MG PO (15:51)
[2025-04-17] MEDS: VANCOMYCIN/WATER (PEG) 1 GM/200 ML BAG IVPB (17:55)
[2025-04-17] MEDS: traMADol 50 MG TAB 25 MG PO (18:30)
[2025-04-17 19:33] VITALS: BP 126/67; PULSE 70; RESP 18; TEMP 36.7; O2SAT 93
[2025-04-17] MEDS: Diclofenac 1% Gel 100 GM TUBE TP (22:54)
[2025-04-17 23:35] VITALS: BP 147/62; PULSE 50; RESP 18; TEMP 36.3; O2SAT 94
[2025-04-18] VITALS (7 sets, daily range): BP systolic 133–173; BP diastolic 62–80; PULSE 53–73; RESP 16–18; TEMP 36–36.6; O2SAT 92–98
[2025-04-18] MEDS: VANCOMYCIN/WATER (PEG) 1 GM/200 ML BAG IVPB (05:51)
[2025-04-18 06:17] LABS: Abs Immature Grans 0.08 10^3/uL (0.0-0.06); HCT 35.9 % (36.0-46.0); HGB 11.5 g/dL (11.2-15.7); Immature Grans % 0.9 %; MCH 29.0 pg (27.0-33.0); MCHC 32.0 % (32.0-36.0); MCV 90 fL (80-95); MPV 10.3 fL (8.0-11.0); Platelet Count 208 10^3/uL (130-400); RBC 3.97 10^6/uL (3.93-5.22); RDW 14.6 % (11.7-14.6); RDW-SD 48.5 fL; WBC 8.83 10^3/uL (4.4-10.8)
[2025-04-18 06:28] LABS: Anion Gap 7.0 mmol/L (3-11); BUN 20 mg/dL (7-18); CO2 28.0 mmol/L (21.0-32.0); Calcium 8.6 mg/dL (8.5-10.1); Chloride 107 mmol/L (98-107); Glucose 124 mg/dL (74-106); Magnesium 2.0 mg/dL (1.8-2.4); Potassium 3.6 mmol/L (3.5-5.1); Sodium 142 mmol/L (136-145)
[2025-04-18] MEDS: Pantoprazole 40 MG TABCR PO (06:32)
--- NOTE | 2025-04-18 07:22 | SCONE_ITS ---
Date of service: 04/18/25 Time of Service: 08:42 Assessment and Plan Assessment and plan (1) Acute UTI: Status: Acute Assessment and plan: Patient is a 69 yo female admitted to the hospitalists service for a UTI. On admission blood cultures were obtained with evidence of staph aureus growing in two bottles. She notes that she had a port placed about a month ago at [facility] however the port has yet to be accessed. She denies any erythema or drainage or complications with her port. On exam the right chest incision is well healing with mild surrounding old ecchymosis, non-tender to palpation and no drainage or surrounding erythema. General surgery was consulted for potential port removal given positive blood cultures. Clinically she has improved greatly since admission with ongoing treatment for her UTI. Her repeat blood cultures are currently negative. She does have an ID consult pending at this time. Discussed case with hospitalists who agreed that with source identified and clinical improvement as well as negative repeat blood cultures it is unlikely that port is the source. However if ongoing concern for bacteremia and pending ID consult this necessitates need for port removal please contact General Surgery. A bedside procedure for port removal was discussed with the patient who was ammenable to this if necessary. (2) Central venous catheter in place on admission: Status: Acute History of Present Illness Narrative: Patient is a 69 yo female admitted to the hospitalists service for a UTI. She on admission had blood cultures obtained which grew staph aureus, however she has improved greatly with current treatment for her UTI. General surgery was consulted for potential port removal given positive blood cultures. On discussion with her today she notes that she is feeling much better. She states that she had her port placed less than a month ago at [facility]. She denies any difficulty with the placement. She notes that it has not been accessed yet for treatment. She states the incision has been healing well and denies any redness or drainage from the incision. She denies any fevers or chills. Review of Systems Constitutional Constitutional: Denies chills and Denies fever(s) Cardiovascular Cardiovascular: Denies chest pain and Denies dyspnea Respiratory Respiratory: Denies dyspnea Gastrointestinal Gastrointestinal: Denies abdominal pain, Denies nausea and Denies vomiting Integumentary/Breasts Skin/Breast: Denies new lesions and Denies rash PFSH All Active Problems (Updated 04/17/25 @ 13:22 by Ariadna Story APRN) Contraindication to deep vein thrombosis (DVT) prophylaxis (Acute) Central venous catheter in place on admission (Acute) Chronic anticoagulation (Acute) Staphylococcus aureus bacteremia with sepsis (Acute) Staphylococcus aureus bacteremia (Acute) Acute kidney injury superimposed on CKD (Acute) Venous thromboembolism (VTE) (Acute) On deep vein thrombosis (DVT) prophylaxis (Acute) ALY (acute kidney injury) (Acute) Breakthrough seizure (Acute) Severe sepsis (Acute) Hypomagnesemia (Acute) Myocardial injury (Acute) Acute UTI (Acute) Brain tumor (Acute) Seizure (Acute) Sepsis (Acute) PAD (peripheral artery disease) (Acute) PVD (peripheral vascular disease) (Chronic) Dystrophia unguium (Acute) Onychomycosis (Acute) Ingrown toenail (Acute) Diabetes (Chronic) Vitamin B12 deficiency (non anemic) (Acute) Hypertension (Chronic) Hyperlipidemia (Acute) GERD (gastroesophageal reflux disease) (Chronic) Peripheral neuropathy (Acute) COPD (chronic obstructive pulmonary disease) (Chronic) Obstructive sleep apnea (Chronic) 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) Meningioma (Acute) Medical History Cerebral venous thrombosis Cerebral venous infarction, acute Spinal stenosis cervical Diverticular disease Surgical History Synovial cyst of sacral region resection S/P cholecystectomy S/P craniotomy 1999 and 2018 S/P cervical discectomy C5-6 decompression for cord impingement Family History Mother Stroke Father Diabetes Heart disease Social History Smoking/Tobacco Use Status: Current every day Tobacco Type: cigarettes Smoking risk assessment performed?: Yes Alcohol Intake: never Drug use: Never Substance use type: marijuana Household members: none Housing: house Number of Children: 2 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 What is your relationship status?: Panel score (0-1 are the most socially isolated patients): 0 Seatbelt use: always Exam Narrative Exam Narrative: General: Well appearing, no acute distress, sitting in chair Skin: Good turgor, port in place in right chest with mild surrounding old ecchymosis, no surrounding erythema or drainage, non-tender to palpation HEENT: Normocephalic, atraumatic, no visible masses CV: Regular rate Lungs: Bilateral equal chest rise, non-labored breathing Extremities: Warm, well perfused Psychiatric: Alert and oriented, normal mood and affect Results Last Vital Signs Temp 36.6 C 04/18/25 07:15 Pulse 60 04/18/25 07:15 Resp 18 04/18/25 07:15 BP 160/70 H 04/18/25 07:15 Pulse Ox 94 04/18/25 07:15 Labs 04/18/25 05:55 04/18/25 05:55 Labs: Laboratory Results - last 24 hr 04/18/25 05:55 WBC 8.83 RBC 3.97 Hgb 11.5 Hct 35.9 L MCV 90 MCH 29.0 MCHC 32.0 RDW 14.6 Plt Count 208 MPV 10.3 Immature Gran % 0.9 Neutrophils % 63.7 Lymphocytes % 22.3 Monocytes % 10.6 Eosinophils % 1.9 Basophils % 0.6 Nucleated RBC % 0.0 Absolute Neutrophils 5.62 Absolute Lymphocytes 1.97 Absolute Monocytes 0.94 H Absolute Eosinophils 0.17 Absolute Basophils 0.05 Sodium 142 Potassium 3.6 Chloride 107 Carbon Dioxide 28.0 Anion Gap 7.0 BUN 20 H Creatinine 0.8 Est GFR (CKD-EPI 2020) 80.71 Glucose 124 H Calcium 8.6 Magnesium 2.[address] scan report/results: report reviewed and image reviewed CT scan - chest: report reviewed and image reviewed CT scan - pelvis: report reviewed and image reviewed
[2025-04-18] MEDS: Magnesium Gluconate 500 MG TAB 1000 MG PO (08:47)
[2025-04-18] MEDS: levETIRAcetam 500 MG TAB PO ×2 (08:48→19:53)
[2025-04-18] MEDS: Lacosamide 100 MG TAB 200 MG PO ×2 (08:48→19:53)
[2025-04-18] MEDS: Acyclovir 400 MG TAB PO ×3 (08:49→19:53)
[2025-04-18] MEDS: Normal Saline Flush 10 ML SYR IVP ×3 (08:49→19:54)
[2025-04-18] MEDS: Diclofenac 1% Gel 100 GM TUBE TP ×3 (08:52→19:53)
--- NOTE | 2025-04-18 10:36 | PT.INTREAT ---
Date of service: 04/18/25 PT Notes Visit Reasons: UTI, Seizures Inpatient Physical Therapy Treatment Note [facility] Date: 04/18/2025 PRECAUTIONS:fall risk, standard, Seizure, IV access Left upper arm SUBJECTIVE: Patient reports her legs do not feel as strong as they did yesterday. OBJECTIVE: Patient presented sacral sitting in chair with feet on the floor on her phone. PAIN: Denies VITALS: monitored by nursing Therapeutic Activities ([id number][]): Direct one-on-one instruction in dynamic activities to improve functional performance. Provided skilled cues and instruction on performance and technique throughout. BED MOBILITY/TRANSFERS Sit-stand: Contact-guard assist x 3 trials and min A x 1 trial Stand-sit: Contact-guard assist x 4 trials with cues for hand placement ---Chair to/from commode: with FWW Contact-guard assist with verbal cues for safe approach x 3 trials , min A x 1 trial Ambulation Facilitated safe and correct performance of level surface ambulation covering a distance of 30 feet x 1 using use front wheeled walker with contact-guard assist, close wheelchair follow for safety and increased time. Did not report of any increased pain. Denied headache, chest pain, and lightheadedness throughout activity. Minimal verbal cueing provided for AD management, directional changes, and posture. Pt demonstrates shortened step length and poor foot clearance B LE with slow robel. ASSESSMENT:Pt able to carryover with less cues the importance of upright posture during transfers and ambulation. Pt noted to fatigue quicker this session as compared to prior session. Patient dependent for toilet hygiene and brief management. PLAN: 1-2x/day, 7 days/week x 1 week. Plan of care has been reviewed with the HORSEBACK EXCAVATOR providing the service under Physical Therapy direction. Initiate Physical Therapy intervention for strengthening, bed mobility, transfers, gait, stairs, balance training, use of assistive device. TREATMENT CODE/TIME: [id number] DISCHARGE RECOMMENDATION: Return to SNF with continued skilled PT
[2025-04-18] MEDS: ceFAZolin 2 GM/50 ML BAG IVPB ×2 (12:30→17:36)
--- NOTE | 2025-04-18 14:20 | W.WOUNDCONS ---
Date of service: 04/18/25 Time of Service: 14:33 Wound Initial Evaluation Narrative Narrative: Mary Silverman is a 69 year old female who presents to [facility] from rehab center that she currently resides in following AMS and witnessed seizure. Per ED work up pt was found to have a UTI. Labs of note were WBC 22.65, Lactic acid at 2.5, magnesium of 1.6. The pt received IV fluid and IV ABX and a new rangel catheter was placed. BMI is noted to be 44. PT is A&O x's 3 and able and can reposition independently. Pt had healed skin tear on R medical ankle that has reopened during her stay here. PT discussed wound consult with this nurse and give permission for photos to be taken. PT endorses that she doesn't eat well at the facility she resides at d/t the quality of the food, though she is open to the idea of a protien supplement. Wound Right Medial Ankle : Wound Type: Stasis Ulcer Wound General Appearance: Unapproximated Wound Bed Greatest Portion: Yellow (Slough) Wound Surrounding Tissue Appearance: Bright Red Percent of Wound Bed Slough/Yellow: 100 Wound Length: 0.59 in Wound Width: 0.98 in Wound Depth: 0.04 in Wound Drainage Amount: None Wound Drainage Odor: None/Absent Wound Drainage Description: No drainage Wound Topical Solution/Irrigant: Other (Wound Cleanser) Wound Debridement Method: Gauze and Mechanical Wound Debridement Result: Yellow Sloughing Remains Wound Debridement Amount of Tissue Removed: Minimal Circulation, Sensation, Motion Edema Degree: Trace Peripheral Pulse Strength: Weak Capillary Refill: Greater than 3 seconds Sensation Description: Numbness Skin Temperature: Warm Skin Color: Pale Pain Pain Level: 0 Pain Scale Used: Adult Wound Summary Wound Summary: See above assessment Photo Photo: Treatment/Dressing Change Topicals/Ointments: Medihoney Cleanse With: Cleanser with Surfactant Dressing Types: Mepilex w/Border Nutrition Education Reviewed Nutrition Education: Yes Note: says that she doesn't have good oral intake at her facility d/t the foods offered. She is willing to try a protein supplement. Recomendation Recomendation:: Right Medial Ankle Remove old bandage Cleanse wound w/ wound cleanser, allow to dwell for 2 minuets Pat dry w/ gauze Apply pea sized amount of medihoney to wound Cover w/ border foam dressing Change Qdaily or PRN if soiled. Physcian/Nurse Practioner Notified: Yes (Tania Fields NP)
--- NOTE | 2025-04-18 14:40 | W.PM.PROGNOT ---
Date of Service Date of service: 04/18/25 Time of Service: 14:40 Assessment and Plan Assessment and plan (1) Severe sepsis: Status: Acute Assessment and plan: On presentation WBC 22, tachycardia 91-106, lactate 2.7 source UTI- secondary source confirmed as blood cultures grew GPC - Staph. aureus in 2 bottles Severity Cr 1.2 on presentation - now 1.1 04/15/25: Blood Cultures : Staph. aureus in 2 bottles 04/16/25: Repeat blood cultures negative to date Urine culture: E coli sensitive to cephlasporins, now on cefazolin lactate and WBC normalized [place] 04[place]19[place]25 [facility] [place] (2) Staphylococcus aureus bacteremia with sepsis: Status: Acute Assessment and plan: cefazolin day 2 of ? echo pending (3) Acute UTI: Status: Acute Assessment and plan: E coli sensitive to cephalosporins will complete course with cefazolin (4) Central venous catheter in place on admission: Status: Acute Assessment and plan: Port to right anterior chest - Surgery consult and Eliquis on hold now-in anticipation of possible procedure plan to discuss with ID and oncology on Saturday (5) Chronic anticoagulation: Status: Acute Assessment and plan: On Eliquis for Hx o multiple DVT's and PE Held at this time and resume s/p R port removal will initiate heparin per protocol (6) Acute kidney injury superimposed on CKD: Status: Acute Assessment and plan: Cr trending down IVF discontinued Losartan resumed but patient stating that she is not aware of using this ARB and feeling foggy after receiving - no hypotension- SNF facility contacted for MAR again today for documents where doses of drugs are legible BMP in AM (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: Status: Acute Assessment and plan: Continue home dose lacosamide and Keppra- IV load given in ED- on oral home dose Keppra level pending (8) Seizure: Status: Acute Assessment and plan: Presenting with most likely breakthrough seizure in the setting of severe sepsis UTI and staphylococcus aureus bacteremia - Continue home dose AED (9) Diabetes: Status: Chronic Assessment and plan: Continue ongoing AC &HS fingersticks A1C 7.0 seems to be around goal SSI coverage Resume home antihyperglycemic regimen at discharge- hold while inpatient (10) ALY (acute kidney injury): Status: Acute Assessment and plan: resolved will continue to monitor BMP in AM (11) Hypertension: Status: Chronic Assessment and plan: stable Losartan held until dose confirmation per SNF MAR (12) Hyperlipidemia: Status: Acute Assessment and plan: home dose statins therapy ordered (13) GERD (gastroesophageal reflux disease): Status: Chronic Assessment and plan: On home dose PPI (14) COPD (chronic obstructive pulmonary disease): Status: Chronic Assessment and plan: No exacerbation Continue home dose regimen (15) Meningioma: Status: Acute Assessment and plan: History of multiple cranial surgery due to meningioma most likely the cause of the seizures now on antiepileptics was on Avastin -held and will not be able to get her infusion on 04/21 (16) Hypomagnesemia: Status: Acute Assessment and plan: supplemented on 04/17 and resolved on 04/16 (17) Contraindication to deep vein thrombosis (DVT) prophylaxis: Status: Acute Assessment and plan: Was on Eliquis held 04/17 -for port removal - Discussed with Dr Hawley Subjective Subjective Patient reports: no new complaints, feels better, tolerating liquids well, tolerating a regular diet, bowel movement and afebrile; denies shortness of breath Exam Const General: cooperative, comfortable and no acute distress Nutritional Appearance: obese Orientation: alert, awake and oriented x3 HENMT Head: normal to inspection, normocephalic and atraumatic Mouth: oral mucosae normal Eyes General: appearance normal, both eyes and all related structures Neck Neck: normal visual inspection and full ROM Resp Effort & Inspection: normal respiratory effort and able to speak in complete sentences Auscultation: clear to auscultation bilaterally Cardio Rate: regular rate Rhythm: regular rhythm GI Inspection: normal to inspection Palpation: soft Auscultation: normal bowel sounds Skin General skin exam: no rashes or lesions noted Neuro General: patient alert, patient awake and patient oriented x3 Extrem General: normal to inspection and full ROM Psych Appearance: grossly normal Mental Status: mental status grossly normal Objective Last Vital Signs Temp 36.6 C 04/18/25 14:35 Pulse 53 L 04/18/25 14:35 Resp 18 04/18/25 14:35 BP 148/62 H 04/18/25 14:35 Pulse Ox 97 04/18/25 14:35 Laboratory Results - last 24 hr 04/18/25 05:55 WBC 8.83 RBC 3.97 Hgb 11.5 Hct 35.9 L MCV 90 MCH 29.0 MCHC 32.0 RDW 14.6 Plt Count 208 MPV 10.3 Immature Gran % 0.9 Neutrophils % 63.7 Lymphocytes % 22.3 Monocytes % 10.6 Eosinophils % 1.9 Basophils % 0.6 Nucleated RBC % 0.0 Absolute Neutrophils 5.62 Absolute Lymphocytes 1.97 Absolute Monocytes 0.94 H Absolute Eosinophils 0.17 Absolute Basophils 0.05 Sodium 142 Potassium 3.6 Chloride 107 Carbon Dioxide 28.0 Anion Gap 7.0 BUN 20 H Creatinine 0.8 Est GFR (CKD-EPI 2020) 80.71 Glucose 124 H Calcium 8.6 Magnesium 2.0 Time Spent with Patient Time Spent with Patient: 35-49 minutes Time was spent: preparing to see the patient(eg.review tests), obtaining and/or reviewing separately otained hiistory, ordering medications,tests, procedures, indepentently interpreting results and counseling the patient
[2025-04-18] MEDS: Heparin in 0.45% NaCl 25,000 UNIT/250 ML BAG 10 UNIT IVINF (16:17)
[2025-04-18 22:47] LABS: PTT Activated 34.8 sec (20.6-30.2)
--- NOTE | 2025-04-19 | DI.CT_ITS ---
Exam(s) CT HEAD WO EXAM: CT HEAD WO CLINICAL HISTORY: new onset headache. TECHNIQUE: Imaging Protocol: Axial computed tomography images with coronal and sagittal reformatted images were created and reviewed COMPARISON: CT CT HEAD WO from 04/15/2025 FINDINGS: Ventricles and Extra axial spaces: Normal in size and morphology for the patient's age. Hemorrhage: None. Cerebral parenchyma: There are areas of decreased attenuation in the white matter consistent with chronic microvascular ischemic disease. There again seen areas of encephalomalacia involving the right parietal lobe and the occipital lobes bilaterally. There is no evidence of an acute territorial infarct or acute mass effect. Midline shift: None. Brainstem/Cerebellum: Normal. Calvarium: There again seen findings are prior craniotomies. Visualized Paranasal sinuses/Mastoids: There is again seen mucosal thickening in the sphenoid sinuses. Soft Tissues: Unremarkable. IMPRESSION: 1. No acute intracranial process. 2. Stable parenchymal and calvarial changes. 3. The preliminary [facility] report was reviewed. RADIATION DOSE DELIVERED: 806.8mGy.cm Total DLP DATA REPOSITORY: All CT scans at this facility are submitted to the National Radiology Data Registry (NRDR) Dose Index Registry (DIR) with the [employer] (ACR). RADIATION OPTIMIZATION: All CT scans at this facility use at least one of these dose optimization techniques: automated exposure control; mA and/or kV adjustment per patient size (includes targeted exams where dose is matched to clinical indication); or iterative reconstruction.
[2025-04-19] MEDS: Acetaminophen 500 MG TAB 1000 MG PO ×2 (00:31→21:17)
[2025-04-19] MEDS: ceFAZolin 2 GM/50 ML BAG IVPB ×3 (01:40→18:42)
[2025-04-19 02:53] VITALS: BP 166/91; PULSE 57; RESP 16; TEMP 36.1; O2SAT 92
--- NOTE | 2025-04-19 03:15 | W.EVENT ---
Date of service: 04/19/25 Time of Service: 03:15 Event Note: NS webex 2/2 pt with new onset bitemporal headache. Pt is on Heparin drip 2/2 history of dvt and PE. nonfocal neuro exam. PERRLA/symetrical smile/B upper and lower strength 5/5. Will order ct head w/o contrast to rule out bleed. Time Spent with Patient Time spent in critical care(minutes): 10 Time Spent Included: Coordination of care, Chart review, Time at immediate bedside and Other
--- NOTE | 2025-04-19 04:16 | DI.[facility]_ITS ---
PROCEDURE INFORMATION: Exam: CT Head Without Contrast Exam date and time: 04/19/2025 3:45 AM Age: 69 years old Clinical indication: Pain; Headache not specified; Prior surgery; Surgery date: 6+ months; Surgery type: S/P craniotomy; New onset ANTONIO TECHNIQUE: Imaging protocol: Computed tomography of the head without contrast. Radiation optimization: All CT scans at this facility use at least one of these dose optimization techniques: automated exposure control; mA and/or kV adjustment per patient size (includes targeted exams where dose is matched to clinical indication); or iterative reconstruction. COMPARISON: CT HEAD WO 04/15/2025 5:18 AM FINDINGS: Brain: No intracranial hemorrhage is appreciated. Chronic ischemic changes. No change in bilateral white matter hypodensities. No significant midline shift. Cerebral ventricles: No disproportionate ventriculomegaly. Paranasal sinuses: Mucosal retention cyst versus polyp in the right sphenoid sinus. Mastoid air cells: No mastoid effusion. Bones: Prior craniotomies. Soft tissues: No acute findings. IMPRESSION: No significant interval change. Dictated and Authenticated by: Lisa Smith MD. Orderin Hunter Sim MD
[2025-04-19 04:38] LABS: Abs Immature Grans 0.21 10^3/uL (0.0-0.06); HCT 35.5 % (36.0-46.0); HGB 11.5 g/dL (11.2-15.7); Immature Grans % 1.9 %; MCH 29.0 pg (27.0-33.0); MCHC 32.4 % (32.0-36.0); MCV 89 fL (80-95); MPV 10.1 fL (8.0-11.0); Platelet Count 208 10^3/uL (130-400); RBC 3.97 10^6/uL (3.93-5.22); RDW 14.6 % (11.7-14.6); RDW-SD 47.6 fL; WBC 11.05 10^3/uL (4.4-10.8)
[2025-04-19 04:54] LABS: ALT 43 U/L (14-59); AST 28 U/L (15-37); Albumin 2.6 g/dL (3.4-5.0); Alkaline Phosphatase 77 U/L (46-116); Anion Gap 9.1 mmol/L (3-11); BUN 19 mg/dL (7-18); Bilirubin, Total 0.2 mg/dL (0.2-1.0); CO2 26.9 mmol/L (21.0-32.0); Calcium 8.5 mg/dL (8.5-10.1); Chloride 106 mmol/L (98-107); Glucose 117 mg/dL (74-106); Potassium 3.8 mmol/L (3.5-5.1); Sodium 142 mmol/L (136-145); Total Protein 6.1 g/dL (6.4-8.2)
[2025-04-19 05:17] LABS: PTT Activated 114.1 sec (20.6-30.2)
[2025-04-19 07:36] VITALS: BP 148/75; PULSE 58; RESP 17; TEMP 35.8; O2SAT 95
[2025-04-19] MEDS: Pantoprazole 40 MG TABCR PO (08:42)
[2025-04-19] MEDS: Acyclovir 400 MG TAB PO ×3 (08:43→21:08)
[2025-04-19] MEDS: Lacosamide 100 MG TAB 200 MG PO ×2 (08:46→21:08)
[2025-04-19] MEDS: levETIRAcetam 500 MG TAB PO ×2 (08:48→21:08)
[2025-04-19] MEDS: Magnesium Gluconate 500 MG TAB 1000 MG PO (08:49)
[2025-04-19] MEDS: Heparin in 0.45% NaCl 25,000 UNIT/250 ML BAG 11 UNIT IVINF (10:09)
[2025-04-19] MEDS: Diclofenac 1% Gel 100 GM TUBE TP ×3 (10:30→21:08)
[2025-04-19 10:41] LABS: PTT Activated 61.6 sec (20.6-30.2)
--- NOTE | 2025-04-19 11:18 | PT.INTREAT ---
PT Notes Visit Reasons: UTI, Seizures Date: 04/19/2025 PRECAUTIONS: Fall. Standard. Seizure, Activity as tolerated. SUBJECTIVE: Pt in recliner when approached for therapy this morning. agreed to partricipating with therapy intervention. Pt in recliner sacral sitting when approached for second session in the afternoon, pt agreed to participating with therapy intervention. OBJECTIVE: IV access Left upper arm PAIN: denies VITALS: Monitored by nursing Therapeutic Activities 39947: Direct one-on-one instruction in dynamic activities to improve functional performance. BED MOBILITY/TRANSFERS (AM) Rolling L/R: min A Supine-sit: min A Sit-supine: supervision Sit-stand: SBA Stand-sit: SBA Bed-Chair: CGA Chair-bed: CGA (PM) Rolling L/R: min A Supine-sit: min A Sit-supine: supervision Sit-stand: SBA Stand-sit: SBA Bed-Chair: CGA Chair-bed: CGA Provided skilled cues and instruction on performance and technique throughout. Gait Training 42843: Direct one-on-one instruction and skilled instruction in: Employing an assistive device Modified weight-bearing status Movement sequencing Turning and movement with proper form Provided verbal cues for equipment management and technique Provided instruction in gait pattern Patient education regarding pacing and breathing techniques to maximize activity tolerance GAIT Assistive Device: FWW Weight bearing: FWB Assist: min A Distance: 30' with 180 degree turns every 15' (AM), 30' with 180 degree turns every 15' Deviation: Slow robel speed, low step height, short step length, WBOS Neuromuscular Re-education 94199: Activities that facilitate re-education of movement balance, posture, coordination, and proprioception or kinesthetic sense, requiring skilled tactile and verbal cues Exercises/techniques: Static Balance activity standing in front of FWW 2mins Dynamic balance activity standing in front of FWW doing multi directional weight shifting, marching, heel to toe rocking, walking sideways L/R, walking backwards. ASSESSMENT: pt reported her buttocks was painful and that is why she was sitting in sacral position. pt provided with setup A to get comfortable in bed after afternoon session to help relieve buttock discomfort. PLAN: Continue with balance training, global strengthening and general conditioning for improved safety, mobility and activity tolerance until pt is ready for DC. TREATMENT CODE/TIME: [id number] 25mins (9:10-9:35am) [id number] 35mins (1:30-2:05pm)
[2025-04-19 11:28] VITALS: BP 151/71; PULSE 61; RESP 17; TEMP 37.1; O2SAT 96
--- NOTE | 2025-04-19 14:25 | W.PM.PROGNOT ---
Date of Service Date of service: 04/19/25 Time of Service: 17:17 Assessment and Plan Assessment and plan (1) Severe sepsis: Status: Resolved Assessment and plan: On presentation WBC 22, tachycardia 91-106, lactate 2.7 source UTI- secondary source confirmed as blood cultures grew GPC - Staph. aureus in 2 bottles 04/15/25: Blood Cultures : Staph. aureus in 2 bottles 04/16/25: Repeat blood cultures negative to date Urine culture: E coli sensitive to cephalosporins, now on cefazolin lactate and WBC normalized Echocardiogram on 04/19/25 [place] [facility] [place] following echo results (2) Cerebral venous thrombosis: Status: Acute Assessment and plan: has been anticoagulated on apixaban this was placed on hold in anticipation of port removal heparin infusion per protocol initiated. (3) Staphylococcus aureus bacteremia with sepsis: Status: Acute Assessment and plan: cefazolin day 3 of ? echo pending (4) Acute UTI: Status: Acute Assessment and plan: E coli sensitive to cephalosporins will complete course with cefazolin (5) Central venous catheter in place on admission: Status: Acute Assessment and plan: Port to right anterior chest - Surgery consult and Eliquis on hold now-in anticipation of possible procedure (6) Chronic anticoagulation: Status: Acute Assessment and plan: On Eliquis for Hx of cerebral venous thrombosis Held at this time and resume s/p R port removal heparin per protocol (7) Acute kidney injury superimposed on CKD: Status: Acute Assessment and plan: normalized. avoid nephrotoxic drugs and renal dose as needed. lorasartan was on hold will re-intiated as bp has been poorly controlled. 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: Status: Acute Assessment and plan: Continue home dose lacosamide and Keppra- IV load given in ED- on oral home dose Keppra level therapeutic at 13.7 (9) Seizure: Status: Acute Assessment and plan: Presenting with most likely breakthrough seizure in the setting of severe sepsis UTI and staphylococcus aureus bacteremia - Continue home dose AED (10) Diabetes: Status: Chronic Assessment and plan: Continue ongoing AC &HS fingersticks A1C 7.0 seems to be around goal SSI coverage Resume home antihyperglycemic regimen at discharge- hold while inpatient (11) ALY (acute kidney injury): Status: Acute Assessment and plan: resolved will continue to monitor BMP in AM (12) Hypertension: Status: Chronic Assessment and plan: blood pressure has been poorly controlled resume Losartan 25 mg daily continue to monitor and adjust as needed. (13) GERD (gastroesophageal reflux disease): Status: Chronic Assessment and plan: On PPI (14) COPD (chronic obstructive pulmonary disease): Status: Chronic Assessment and plan: No exacerbation Continue home dose regimen (15) Meningioma: Status: Acute Assessment and plan: History of multiple cranial surgery due to meningioma most likely the cause of the seizures now on antiepileptics was on Avastin -held and will not be able to get her infusion on 04/21 call placed to oncologist Dr Scotty Espinal [phone] (16) Hypomagnesemia: Status: Acute Assessment and plan: supplemented and normalized (17) Contraindication to deep vein thrombosis (DVT) prophylaxis: Status: Acute Assessment and plan: Was on Eliquis held 04/17 -for port removal - heparin drip initiated Discussed with Dr Hawley Subjective Subjective Interval history since last seen: c/o of headache overnight, CT scan negative for acute bleed or acute intracranial process Exam Const General: cooperative, comfortable and no acute distress Nutritional Appearance: obese Orientation: alert, awake and oriented x3 HENSC Head: normal to inspection, normocephalic and atraumatic Mouth: oral mucosae normal Eyes General: appearance normal, both eyes and all related structures Neck Neck: normal visual inspection and full ROM Resp Effort & Inspection: normal respiratory effort and able to speak in complete sentences Auscultation: clear to auscultation bilaterally Cardio Rate: regular rate Rhythm: regular rhythm GI Inspection: normal to inspection Palpation: soft Auscultation: normal bowel sounds Skin General skin exam: no rashes or lesions noted Neuro General: patient alert, patient awake and patient oriented x3 Extrem General: normal to inspection and full ROM Psych Appearance: grossly normal Mental Status: mental status grossly normal Objective Last Vital Signs Temp 37.1 C 04/19/25 11:28 Pulse 61 04/19/25 11:28 Resp 17 04/19/25 11:28 BP 151/71 H 04/19/25 11:28 Pulse Ox 96 04/19/25 11:28 Laboratory Results - last 24 hr 04/15/25 04/18/25 04/19/25 04:46 22:20 04:30 WBC 11.05 H RBC 3.97 Hgb 11.5 Hct 35.5 L MCV 89 MCH 29.0 MCHC 32.4 RDW 14.6 Plt Count 208 MPV 10.1 Immature Gran % 1.9 Neutrophils % 57.8 Lymphocytes % 26.8 Monocytes % 9.7 Eosinophils % 3.1 Basophils % 0.7 Nucleated RBC % 0.0 Absolute Neutrophils 6.39 Absolute Lymphocytes 2.96 Absolute Monocytes 1.07 H Absolute Eosinophils 0.34 Absolute Basophils 0.08 APTT 34.8 H 114.1 H* Sodium 142 Potassium 3.8 Chloride 106 Carbon Dioxide 26.9 Anion Gap 9.1 BUN 19 H Creatinine 0.9 Est GFR (CKD-EPI 2020) 70.07 Glucose 117 H Calcium 8.5 Total Bilirubin 0.2 AST 28 ALT 43 Alkaline Phosphatase 77 Total Protein 6.1 L Albumin 2.6 L Levetiracetam 13.7 04/19/25 10:20 WBC RBC Hgb Hct MCV MCH MCHC RDW Plt Count MPV Immature Gran % Neutrophils % Lymphocytes % Monocytes % Eosinophils % Basophils % Nucleated RBC % Absolute Neutrophils Absolute Lymphocytes Absolute Monocytes Absolute Eosinophils Absolute Basophils APTT 61.6 H Sodium Potassium Chloride Carbon Dioxide Anion Gap BUN Creatinine Est GFR (CKD-EPI 2020) Glucose Calcium Total Bilirubin AST ALT Alkaline Phosphatase Total Protein Albumin Levetiracetam Time Spent with Patient Time Spent with Patient: 35-49 minutes Time was spent: preparing to see the patient(eg.review tests), obtaining and/or reviewing separately otained hiistory, ordering medications,tests, procedures, referring, communicating with other health health care attorney, indepentently interpreting results and counseling the patient
[2025-04-19 15:55] VITALS: BP 148/73; PULSE 63; RESP 17; TEMP 36.4; O2SAT 98
--- NOTE | 2025-04-19 18:01 | PDOC.CMPRO ---
Date of service: 04/19/25 Time of Service: 18:01 Care Management Progress Note Progress Note Text Progress Note Text: was sitting up in bed when CM met with her today. She was very pleasant and easy to converse with. Her medical plan is still uncertain, as infectious disease and oncology need to be consulted. They have been reached out to by the provider, but no consults have been done as of yet. is a bit anxious to know what her plan of care will be. She may need an extended period of IV antibiotics. She is worried about losing her rehab bed at [facility], and being able to re-enroll in Medicare. [facility] was notified of these concerns. Her bed is safe, and the will help her with Medicare. It is expected that she will be back to [facility] before the 05/30 end date for open enrollment. has a paid caregiver who was planning to bring some things from the rehab today. She stated that she needs to pay her bills. had to cancel her appointment for her cancer treatment that was scheduled this week due to her illness. KASSIDY has been communicating with the rehab during her stay. Discharge Potential Discharge Needs: Consult (infectious disease and oncology) and PCP F/U Appt Anticipated Barriers to Discharge: Medical Status Patient/Family Education Needs: Review discharge instructions, discuss Ask Me Three Transportation: [facility] Transportation: Wheel chair van Plan: Anticipate that will return to [facility] once she is medically stable. She will f/u with the facility provider and continue per her plan of care. She will transport via [facility] wheelchair van. CM will continue to follow and update the plan as needed. Social Determinants of Health Screening Social Determinants of health last assessed in clinic: 04/19/25 Will the Patient Participate in the Screening?: Yes Do you worry about having a steady place to live?: no Problems where you live: no known problems In the past 12 months, have you had to go without electric, gas, oil or water in your home?: no 1. Within the past 12 months, we worried whether our food would run out before we got money to buy more.: Don't know/refused 2. Within the past 12 months, the food we bought just didn't last and we didn't have money to get more.: Don't know/refused Has lack of transportation kept you from medical appointments or from doing things needed for daily living?: no Has anyone in your life made you feel unsafe or unsupported?: no How hard is it for you to pay for the very basics like food, housing, medical care, and heating? Would you say it is:: Not hard at all Do you want help finding or keeping work or a job?: I do not need or want help If for any reason you need help with day-to-day activities such as bathing, preparing meals, shopping, managing finances, etc., do you get the help you need?: I don’t need any help How often do you feel lonely or isolated from those around you?: Rarely Do you speak a language other than [place]ian at home?: No Health Related Social Needs Health related social needs: feeling lonely/isolated (Z60.8) Health related social needs details: says sometimes she has a little loneliness, but is not concerned
--- NOTE | 2025-04-19 18:59 | NUR.NOTE ---
Nursing Note: IV heparin infusion was stopped earlier this afternoon due to no iv access. Tania the RN HYPERBARIC ordered a midline to be placed on the patient. Pt now has IV midline in RAC placed by Bridger. IV heparin infusion has been restarted at previous rate (11ml/hr). I confirmed the rate with [facility] remote pharmacy team (pharmacist name unknown). PTT was ordered for 04/20 @0047.
[2025-04-19 19:06] LABS: PTT Activated 23.2 sec (20.6-30.2)
[2025-04-19 19:47] VITALS: BP 176/68; PULSE 63; RESP 18; TEMP 36; O2SAT 93
[2025-04-19] MEDS: Normal Saline Flush 10 ML SYR IVP (21:09)
[2025-04-19 23:26] VITALS: BP 147/67; PULSE 64; RESP 14; TEMP 35.8; O2SAT 92
[2025-04-20 01:17] LABS: PTT Activated 49.1 sec (20.6-30.2)
[2025-04-20] MEDS: ceFAZolin 2 GM/50 ML BAG IVPB ×3 (02:21→17:44)
[2025-04-20] MEDS: Normal Saline Flush 10 ML SYR IVP ×4 (02:22→20:56)
[2025-04-20 03:38] VITALS: BP 155/66; PULSE 50; RESP 18; TEMP 35.5; O2SAT 95
[2025-04-20] MEDS: Acetaminophen 500 MG TAB 1000 MG PO (05:40)
[2025-04-20] MEDS: Diclofenac 1% Gel 100 GM TUBE TP ×4 (07:44→20:56)
[2025-04-20] MEDS: Magnesium Gluconate 500 MG TAB 1000 MG PO (07:45)
[2025-04-20] MEDS: Pantoprazole 40 MG TABCR PO (07:45)
[2025-04-20] MEDS: Lacosamide 100 MG TAB 200 MG PO ×2 (07:45→20:56)
[2025-04-20] MEDS: Acyclovir 400 MG TAB PO ×3 (07:45→20:56)
[2025-04-20] MEDS: levETIRAcetam 500 MG TAB PO ×2 (07:45→20:55)
[2025-04-20 07:50] VITALS: BP 159/91; PULSE 67; RESP 16; TEMP 36.6; O2SAT 97
--- NOTE | 2025-04-20 08:48 | W.NUTRFU ---
Date of service: 04/20/25 Time of Service: 08:48 Nutrition Note NOTE: received consult request for diabetes ed/mgt. Dwayne is a 69yo currently residing at [facility], with hx of type II diabetes and most recent A1C of 7.0%. Weight fairly stable with a current BMI congruent with class III obesity. She manages glucose at home with glipizide. She has been on dexamthesone and still fingersticks <180 most often at meals with corrections ordered with novolog on sensitive ss. She has good po intake. Denies need for in-depth education. Current stasis ulcer to R medial ankle. home meds include vitamin D, calcium and b12 along with a women's one-a-day and 1g n-3 oil BID. Nutrition related labs look good - albumin and total protein low yesterday but WBC still a little elavated and could be related to inflammation as well. Dwayne offered higher protein ONS at meals. Would consider 220mg zinc sulfate and 500mg vitamin C BID to aid wound healing. encouraged high protein food choices from menu and reviewed. No aggressive nutrittion intervention planned at this time. Will continue to monitor intake, weight, nutrition labs. Will remain available for outpatient nutrition services if/when desired. Time Spent in Nutritional Counseling and Treatment: 5 min
--- NOTE | 2025-04-20 08:49 | PDOC.CMPRO ---
Date of service: 04/20/25 Time of Service: 14:23 Care Management Progress Note Progress Note Text Progress Note Text: When CM attempted to meet with , she was sitting up in bed and speaking with the Patient Experience Officer. Per report, Infectious Disease will be consulted, and new cultures have been obtained. Per report, the patient is from [facility], which has designated her bed as “safe.” However; CM contacted [facility] and was informed that a new referral will be required for to return to their facility; however, her personal belongings remain in her room there. A prior auth would be required prior to her return, as soon. has been working with Physical Therapy, whose recommendation is discharge to a senior care facility for continued skilled PT services. The Patient Experience Department is assisting with resolving a reported issue involving her phone. CM will continue to follow. Discharge Potential Discharge Needs: Consult (infectious disease and oncology) and PCP F/U Appt Anticipated Barriers to Discharge: None Identified Patient/Family Education Needs: Review discharge instructions, discuss Ask Me Three Transportation: RCT RCT Transportation: Wheel chair van Plan: Anticipate that will return to [facility] for Living once she is medically stable. She will f/u with the facility provider and continue per her plan of care. She will transport via RCT wheelchair van. CM will continue to follow and update the plan as needed. Social Determinants of Health Screening Social Determinants of health last assessed in clinic: 04/20/25 Will the Patient Participate in the Screening?: Yes Do you worry about having a steady place to live?: no Problems where you live: no known problems In the past 12 months, have you had to go without electric, gas, oil or water in your home?: no 1. Within the past 12 months, we worried whether our food would run out before we got money to buy more.: Don't know/refused 2. Within the past 12 months, the food we bought just didn't last and we didn't have money to get more.: Don't know/refused Has lack of transportation kept you from medical appointments or from doing things needed for daily living?: no Has anyone in your life made you feel unsafe or unsupported?: no How hard is it for you to pay for the very basics like food, housing, medical care, and heating? Would you say it is:: Not hard at all Do you want help finding or keeping work or a job?: I do not need or want help If for any reason you need help with day-to-day activities such as bathing, preparing meals, shopping, managing finances, etc., do you get the help you need?: I don’t need any help How often do you feel lonely or isolated from those around you?: Rarely Do you speak a language other than Armenian at home?: No Health Related Social Needs Health related social needs: feeling lonely/isolated (Z60.8) Health related social needs details: says sometimes she has a little loneliness, but is not concerned
[2025-04-20 10:06] LABS: PTT Activated 112.0 sec (20.6-30.2)
[2025-04-20] MEDS: Heparin in 0.45% NaCl 25,000 UNIT/250 ML BAG 10.5 UNIT IVINF (11:20)
[2025-04-20 11:55] VITALS: BP 156/67; PULSE 71; RESP 18; TEMP 36.6; O2SAT 100
[2025-04-20 14:01] LABS: PTT Activated 53.7 sec (20.6-30.2)
--- NOTE | 2025-04-20 14:44 | PHA.REVIEW2 ---
Pharmacy Admission Review Admission Clinical Review Admission Pharmacy Review: Cerebral venous thrombosis (Acute) Contraindication to deep vein thrombosis (DVT) prophylaxis (Acute) Central venous catheter in place on admission (Acute) Chronic anticoagulation (Acute) Staphylococcus aureus bacteremia with sepsis (Acute) Staphylococcus aureus bacteremia (Acute) Acute kidney injury superimposed on CKD (Acute) Venous thromboembolism (VTE) (Acute) On deep vein thrombosis (DVT) prophylaxis (Acute) ALY (acute kidney injury) (Acute) Breakthrough seizure (Acute) Hypomagnesemia (Acute) Myocardial injury (Acute) Acute UTI (Acute) Seizure (Acute) Hyperlipidemia (Acute) 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) Meningioma (Acute) spider venom Allergy (Mild, Verified 10/08/24 09:04) swelling [place] nut Allergy (Verified 10/08/24 09:04) Unknown house dust Allergy (Verified 10/08/24 09:04) Unknown Penicillins Allergy (Verified 10/08/24 09:04) Unknown sulfamethoxazole (From Bactrim) Adverse Reaction (Intermediate, Verified 04/15/25 10:10) Other (See Comment) trimethoprim (From Bactrim) Adverse Reaction (Intermediate, Verified 04/15/25 10:10) Other (See Comment) Resuscitation Status Full Code Height 5 ft 3 in Weight 112.899 kg Pharmacy Admission Review Renal Dosing Renal Dosing: BUN 19 mg/dL (7-18) H 04/19/25 04:30 Creatinine 0.9 mg/dL (0.55-1.02) 04/19/25 04:30 Medications needing adjustments: Reviewed (CrCl 66.01 mL/min) List of meds needing interventions: Current medications are okay Anticoagulation Anticoagulation: Hgb 11.5 g/dL (11.2-15.7) 04/19/25 04:30 Hct 35.5 % (36.0-46.0) L 04/19/25 04:30 Plt Count 208 10^3/uL (130-400) 04/19/25 04:30 INR 1.1 (0.9-1.1) 04/15/25 04:40 Creatinine 0.9 mg/dL (0.55-1.02) 04/19/25 04:30 aPTT 23.2 sec (20.6-30.2) 04/19/25 1800 49.1 sec (20.6-30.2) 04/20/25 0054 112 H* sec (20.6-30.2) 04/20/25 0835 53.7 H sec (20.6-30.2) 04/20/25 1340 Therapeutic Anticoagulation: Intervened (order put in with directions to use adjusted body weight due to BMI > 40. Was informed by nursing this morning that nurse who started infusion put patients actual body weight in the pump. aPTT this morning was 112. Spoke to provider and nurse regarding need to change settings to correct weight.) Medications: Heparin (infusion @ 1,050 units/hr) Relevant Labs Relevant Labs: Sodium 142 mmol/L (136-145) 04/19/25 04:30 Potassium 3.8 mmol/L (3.5-5.1) 04/19/25 04:30 Chloride 106 mmol/L (98-107) 04/19/25 04:30 Magnesium 2.0 mg/dL (1.8-2.4) 04/18/25 05:55 Electrolytes, C-Reactive P, ESR: Reviewed (No new labs for today) DM Control DM Control: Glucose 117 mg/dL (74-106) H 04/19/25 04:30 Hemoglobin A1c 7.0 % (<5.7) H 04/15/25 04:40 Finger Stick Blood Glucose 144 1208 Finger Stick Blood Glucose 144 1154 Finger Stick Blood Glucose 144 1154 Finger Stick Blood Glucose 124 0744 Finger Stick Blood Glucose 124 0744 Finger Stick Blood Glucose 124 0744 DM Control: Reviewed Insulin Dosing, Diabetic Medication: Has order for SS insulin but was discontinued today Cardiac Review Cardiac Review: Troponin I 50 ng/L (<or=51) 04/15/25 07:36 Blood Pressure 156/67 1155 Blood Pressure 159/91 0750 Blood Pressure 155/66 0338 BP, HR, EF%: Reviewed (HR WNL) QTc Review QTc: Reviewed (473 from 04/15/25) IV to PO Switch IV Medications: Reviewed (cefazolin and heparin) Home Meds Home Med List reviewed: Intervened Relevent Home Meds Not ordered & why?: bisacodyl (PRN), calcium carbonate, vitamin D3, vitamin B12, diphenhydramine (PRN), fluconazole, gabapentin, glipizide, losartan (on hold per H+P), multivitamin, omeprazole (has order for pantoprazole) Asked provider about gabapentin, glipizide and losartan - waiting to hear back Current Meds Current Medication Order Review: Reviewed Pharmacy Antibiotic Review Relevant Labs: WBC 11.05 10^3/uL (4.4-10.8) H 04/19/25 04:30 Procalcitonin < 0.10 ng/mL 04/15/25 04:40 Temperature 36.6 C Temperature 36.6 C Temperature 35.5 C Microbiology 04/17/25 15:10 Wound Culture - Preliminary Leg - Right Lower Gram positive alex Gram Stain - Final 04/16/25 16:00 Blood Culture - Preliminary Blood NO GROWTH 72 HOURS 04/16/25 15:50 Blood Culture - Preliminary Blood NO GROWTH 72 HOURS Blood culture (04/15/25) Organism 1 Staphylococcus aureus Stap dimitris Result Gentamicin S Daptomycin S Erythromycin R Oxacillin S Vancomycin S Urine culture 04/15/25 Esch coli Result Ampicillin S Ampicillin/Sulbactam S Cefazolin S Ceftazidime S Ceftriaxone S Ciprofloxacin R Gentamicin S Nitrofurantoin S Imipenem S Levofloxacin R Tobramycin S Trimethoprim/Sulfamethoxazole R Piperacillin/Tazobactam S Pharmacy Antibiotic Activity: C/S review and Reviewed, no change Comments: Patient is on cefazolin, day 4, for UTI/bacteremia/sepsis.
--- NOTE | 2025-04-20 14:47 | PT.INTREAT ---
PT Notes Visit Reasons: UTI, Seizures Inpatient Physical Therapy Treatment Note [facility] Date: 04/21/25 SUBJECTIVE: states that she is upset and worried that the night nurse broke my phone. Her biggest concern is that she summers not remember any phone numbers. Reports that her legs are stiff, as she has been up since 6am. OBJECTIVE: [] VITALS: monitored by nsg. Therapeutic Activities (03076t6): Direct one-on-one instruction in dynamic activities to improve functional performance. BED MOBILITY/TRANSFERS pt seated in recliner. Sit-stand: CGA Stand-sit: CGA Provided skilled cues and instruction on performance and technique throughout. GAIT Assistive Device: FWW Weight bearing: FWB Assist: CGA/min A Distance: 25'x2 in am and 30'x2 in pm. Deviation: slow robel with shortened stride length. Therapeutic Exercises (39459z6): Direct one-on-one instruction in therapeutic exercises to develop strength, endurance, range of motion and flexibility. Exercises seated AP, LAQ, hip flex, hip ABD/ADD while sitting in recliner. Sit to stand x3. Provided skilled instruction in proper exercise performance ASSESSMENT: tolerated session well. She was distracted this am due to being worried about her cell phone. She was better focused this pm. Tires easily. Required cues for proper management of AD as well as safety cues. PLAN: Will continue to work on her strength and functional mobility. TREATMENT CODE/TIME: 25 min in am and 20 min in pm. DISCHARGE RECOMMENDATION: SNF
[2025-04-20 15:18] VITALS: BP 150/82; PULSE 66; RESP 16; TEMP 35.9; O2SAT 99
--- NOTE | 2025-04-20 15:51 | CHAPLAIN ---
has been here five days. She is from [facility]. Today she told me that she has two types of infections and she waiting to see if her port will be removed. She said there are lots of things out of my hands. It's like Daquan take the wheel, and he doesn't drive fast enough. We talked about the frustration of medicine not being an exact science and how difficult it can be to have patience. had a friend visiting with her today.
--- NOTE | 2025-04-20 16:45 | PGE_ITS ---
Date of Service Date of service: 04/20/25 Time of Service: 16:45 Assessment and Plan Assessment and plan (1) Bacteremia associated with intravascular line: Status: Acute Assessment and plan: I reviewed with the challenges associated with bacteremia in the setting of a Port-A-Cath. It is reassuring that the most recent blood cultures are negative, but certainly the risk of ongoing or recurrent bacteremia in the setting is high. I spoke with Dr. Hawley, and it seems that all parties helping care for are in agreement that the port should be removed. I explained to that we will shut off the heparin drip tomorrow at 6 AM, and to anticipate bedside removal of the Port-A-Cath around midday. This plan was also shared with nursing staff. Subjective Subjective Interval history since last seen: is feeling a little bit overwhelmed with the urinary tract infection, and positive blood cultures. Generally, however, she does feel better than when she came to the hospital. Again, she denies any discomfort over the port site. Exam Chest Other: I can palpate a subcutaneous Port-A-Cath on the right subclavian position. There is no erythema or fluctuance. Is not particularly tender. Objective Last Vital Signs Temp 96.6 F L 04/20/25 15:18 Pulse 66 04/20/25 15:18 Resp 16 04/20/25 15:18 BP 150/82 H 04/20/25 15:18 Pulse Ox 99 04/20/25 15:18 Laboratory Results - last 24 hr 04/19/25 04/20/25 04/20/25 18:00 00:54 08:35 APTT 23.2 49.1 H 112.0 H* 04/20/25 13:40 APTT 53.7 H Time Spent with Patient Time Spent with Patient: 25-34 minutes Time was spent: preparing to see the patient(eg.review tests), referring, communicating with other health home health caregiver, counseling the patient and care coordination
--- NOTE | 2025-04-20 17:06 | W.PM.PROGNOT ---
Date of Service Date of service: 04/20/25 Time of Service: 08:00 Assessment and Plan Assessment and plan (1) Severe sepsis: Status: Resolved Assessment and plan: On presentation WBC 22, tachycardia 91-106, lactate 2.7 source UTI- secondary source confirmed as blood cultures grew GPC - Staph. aureus in 2 bottles 04/15/25: Blood Cultures : Staph. aureus in 2 bottles 04/16/25: Repeat blood cultures negative to date Urine culture: E coli sensitive to cephalosporins, now on cefazolin lactate and WBC normalized Echocardiogram on 04/19/25 pending [facility] ID consult pending following echo results Apr 20: echo without evidence of vegetations on valves. Discussed with neuro-oncology and ID, will ask for help getting port removed from general surgeon. Midline is in place. (2) Cerebral venous thrombosis: Status: Acute Assessment and plan: has been anticoagulated on apixaban this was placed on hold in anticipation of port removal heparin infusion per protocol initiated. (3) Staphylococcus aureus bacteremia with sepsis: Status: Acute Assessment and plan: MSSA, source possibly portacath, possibly leg wound Continue cefazolin to complete 2 week course (4) Acute UTI: Status: Acute Assessment and plan: E coli sensitive to cephalosporins will complete course with cefazolin (5) Central venous catheter in place on admission: Status: Acute Assessment and plan: Port to right anterior chest - Surgery consult and Eliquis on hold now-in anticipation of possible procedure (6) Chronic anticoagulation: Status: Acute Assessment and plan: On Eliquis for Hx of cerebral venous thrombosis Held at this time and resume s/p R port removal heparin per protocol (7) Acute kidney injury superimposed on CKD: Status: Acute Assessment and plan: normalized. avoid nephrotoxic drugs and renal dose as needed. lorasartan was on hold will re-intiated as bp has been poorly controlled. 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: Status: Acute Assessment and plan: Continue home dose lacosamide and Keppra- IV load given in ED- on oral home dose Keppra level therapeutic at 13.7 (9) Seizure: Status: Acute Assessment and plan: Presenting with most likely breakthrough seizure in the setting of severe sepsis UTI and staphylococcus aureus bacteremia - Continue home dose AED (10) Diabetes: Status: Chronic Assessment and plan: Continue ongoing AC &HS fingersticks A1C 7.0 seems to be around goal SSI coverage Resume home antihyperglycemic regimen at discharge- hold while inpatient (11) ALY (acute kidney injury): Status: Acute Assessment and plan: resolved will continue to monitor BMP in AM (12) Hypertension: Status: Chronic Assessment and plan: blood pressure has been poorly controlled resume Losartan 25 mg daily continue to monitor and adjust as needed. (13) GERD (gastroesophageal reflux disease): Status: Chronic Assessment and plan: On PPI (14) COPD (chronic obstructive pulmonary disease): Status: Chronic Assessment and plan: No exacerbation Continue home dose regimen (15) Meningioma: Status: Acute Assessment and plan: History of multiple cranial surgery due to meningioma most likely the cause of the seizures now on antiepileptics was on Avastin -held and will not be able to get her infusion on 04/21 call placed to oncologist Dr Scotty Espinal [phone] (16) Hypomagnesemia: Status: Acute Assessment and plan: supplemented and normalized (17) Contraindication to deep vein thrombosis (DVT) prophylaxis: Status: Acute Assessment and plan: Was on Eliquis held 04/17 -for port removal - heparin drip initiated Subjective Subjective Interval history since last seen: Ms. Silverman is up in a chair eating breakfast. She has no complaints. She is worried about getting back on her chemotherapy treatments. Exam Narrative Exam Narrative: General: This is a pleasant, elderly woman in no distress HEENT: Normocephalic, atraumatic CV: RRR. Right chest port Resp: CTAB Abd: soft, NTND MSK: voluntary motion x4 Neuro: awake, alert, no focal deficits Objective Last Vital Signs Temp 35.9 C L 04/20/25 15:18 Pulse 66 04/20/25 15:18 Resp 16 04/20/25 15:18 BP 150/82 H 04/20/25 15:18 Pulse Ox 99 04/20/25 15:18 Laboratory Results - last 24 hr 04/19/25 04/20/25 04/20/25 18:00 00:54 08:35 APTT 23.2 49.1 H 112.0 H* 04/20/25 13:40 APTT 53.7 H Time Spent with Patient Time Spent with Patient: >50 minutes Time was spent: preparing to see the patient(eg.review tests), obtaining and/or reviewing separately otained hiistory, ordering medications,tests, procedures, referring, communicating with other health critical care unit nurse, indepentently interpreting results, counseling the patient and care coordination
[2025-04-20 19:30] VITALS: BP 150/68; PULSE 73; RESP 18; TEMP 36.5; O2SAT 98
[2025-04-20 20:28] LABS: PTT Activated 55.5 sec (20.6-30.2)
[2025-04-20 23:11] VITALS: BP 146/67; PULSE 75; RESP 17; TEMP 36.5; O2SAT 97
[2025-04-21] MEDS: Normal Saline Flush 10 ML SYR IVP ×5 (03:11→20:27)
[2025-04-21] MEDS: ceFAZolin 2 GM/50 ML BAG IVPB ×3 (03:11→18:33)
[2025-04-21 03:19] VITALS: BP 156/66; PULSE 67; RESP 18; TEMP 36.2; O2SAT 92
[2025-04-21] MEDS: Acetaminophen 500 MG TAB 1000 MG PO ×4 (03:37→22:15)
[2025-04-21] MEDS: levETIRAcetam 500 MG TAB PO ×2 (07:53→20:28)
[2025-04-21] MEDS: Lacosamide 100 MG TAB 200 MG PO ×2 (07:53→19:20)
[2025-04-21] MEDS: Magnesium Gluconate 500 MG TAB 1000 MG PO (07:53)
[2025-04-21] MEDS: Acyclovir 400 MG TAB PO ×3 (07:54→22:11)
[2025-04-21] MEDS: Pantoprazole 40 MG TABCR PO (07:57)
--- NOTE | 2025-04-21 09:46 | PDOC.CMPRO ---
Date of service: 04/21/25 Time of Service: 10:01 Care Management Progress Note Progress Note Text Progress Note Text: was sitting up in bed when CM met with her. Per report, will likely require 2 weeks cefazolin 2g IV q8h; Prior authorization has been initiated. Anticipate that will be placed on SWB1 status tomorrow, pending authorization approval. She is agreeable to this plan. Per Physical Therapy, it is likely that will require a return to SNF following this admission; however, she will continue to participate in PT while hospitalized. CM has communicated this plan with [facility]. Per the Patient Experience Officer, ’s replacement phone is expected to arrive on Saturday. Per report, had a scheduled Avastin infusion at [facility] on 04/21, which will need to be rescheduled. CM will continue to follow. Discharge Potential Discharge Needs: Consult (infectious disease and oncology) and PCP F/U Appt Anticipated Barriers to Discharge: None Identified Patient/Family Education Needs: Review discharge instructions, discuss Ask Me Three Transportation: RCT RCT Transportation: Wheel chair van Plan: Anticipate that will return to [facility] for Living once she is medically stable. will require SWB 1 for IV antibiotics, prior authorization is pending. Per PT, she will likely require SNF to continue her rehab. She will f/u with the facility provider and continue per her plan of care. She will need to a new [facility] Avastin appointment (was for 04/21). She will transport via [facility] wheelchair van. CM will continue to follow and update the plan as needed. Social Determinants of Health Screening Social Determinants of health last assessed in clinic: 04/21/25 Will the Patient Participate in the Screening?: Yes Do you worry about having a steady place to live?: no Problems where you live: no known problems In the past 12 months, have you had to go without electric, gas, oil or water in your home?: no 1. Within the past 12 months, we worried whether our food would run out before we got money to buy more.: Don't know/refused 2. Within the past 12 months, the food we bought just didn't last and we didn't have money to get more.: Don't know/refused Has lack of transportation kept you from medical appointments or from doing things needed for daily living?: no Has anyone in your life made you feel unsafe or unsupported?: no How hard is it for you to pay for the very basics like food, housing, medical care, and heating? Would you say it is:: Not hard at all Do you want help finding or keeping work or a job?: I do not need or want help If for any reason you need help with day-to-day activities such as bathing, preparing meals, shopping, managing finances, etc., do you get the help you need?: I don’t need any help How often do you feel lonely or isolated from those around you?: Rarely Do you speak a language other than Yoruba at home?: No Health Related Social Needs Health related social needs: feeling lonely/isolated (Z60.8) Health related social needs details: says sometimes she has a little loneliness, but is not concerned
[2025-04-21] MEDS: Diclofenac 1% Gel 100 GM TUBE TP ×4 (10:16→20:33)
--- NOTE | 2025-04-21 10:26 | PT.INTREAT ---
Date of service: 04/21/25 PT Notes Visit Reasons: UTI, Seizures Inpatient Physical Therapy Treatment Note [facility] Date: 04/21/2025 SUBJECTIVE: reports she is having her IV line taken out this afternoon OBJECTIVE: Pt presented reclined in chair nearly supine . Pt assisted up in chair the chair was replaced with shorter depth and lower height to allow her to get her bottom back in the chair VITALS: monitored by nsg. Therapeutic Activities (21400): Direct one-on-one instruction in dynamic activities to improve functional performance. BED MOBILITY/TRANSFERS pt seated in recliner. Sit-stand: CGA Stand-sit: CGA Provided skilled cues and instruction on performance and technique throughout. GAIT Assistive Device: FWW Weight bearing: FWB Assist: CGA with w/c follow Distance: 30feet x 2 Deviation: slow robel with shortened stride length. Therapeutic Exercises (70796): Direct one-on-one instruction in therapeutic exercises to develop strength, endurance, range of motion and flexibility. Exercises seated AP, LAQ, hip flex, hip ABD/ADD while sitting in recliner. Sit to stand x5. Provided skilled instruction in proper exercise performance ASSESSMENT: Pt tolerated session well. She tires easily and requires rest bperiods between resting but is able to perform therex during rest.She requires intermittent cues for safe approach to surface d/t visual deficits.. Required cues for proper management of AD as well as safety cues. PLAN: Will continue to work on her strength and functional mobility. TREATMENT CODE/TIME: 03506, 15812/ [id number] DISCHARGE RECOMMENDATION:SNF
[2025-04-21 11:57] VITALS: BP 130/71; PULSE 62; RESP 17; TEMP 36.1; O2SAT 94
--- NOTE | 2025-04-21 11:59 | PGE_ITS ---
Date of Service Date of service: 04/21/25 Time of Service: 09:00 Assessment and Plan Assessment and plan (1) Severe sepsis: Status: Resolved Assessment and plan: On presentation WBC 22, tachycardia 91-106, lactate 2.7 source UTI- secondary source confirmed as blood cultures grew GPC - Staph. aureus in 2 bottles 04/15/25: Blood Cultures : Staph. aureus in 2 bottles 04/16/25: Repeat blood cultures negative to date Urine culture: E coli sensitive to cephalosporins, now on cefazolin lactate and WBC normalized Echocardiogram on 04/19/[address] [facility] ID consult pending following echo results Apr 20: echo without evidence of vegetations on valves. Discussed with neuro- oncology and ID, will ask for help getting port removed from general surgeon. Midline is in place. (2) Cerebral venous thrombosis: Status: Acute Assessment and plan: has been anticoagulated on apixaban this was placed on hold in anticipation of port removal heparin infusion per protocol discontinued ahead of port removal Resume apixaban evening of Apr 21 (3) Staphylococcus aureus bacteremia with sepsis: Status: Acute Assessment and plan: MSSA, source possibly portacath, possibly leg wound Continue cefazolin to complete 2 week course. Cefazolin 2 mg IV q8h for 2 weeks from date of negative cultures. Discussed with [facility] ID (4) Acute UTI: Status: Acute Assessment and plan: E coli sensitive to cephalosporins will complete course with cefazolin (5) Central venous catheter in place on admission: Status: Acute Assessment and plan: Port to right anterior chest - to be removed Apr 21 (6) Chronic anticoagulation: Status: Acute Assessment and plan: On Eliquis for Hx of cerebral venous thrombosis Held at this time and resume s/p R port removal Apixaban restarted for the evening of Apr 21 (7) Acute kidney injury superimposed on CKD: Status: Resolved Assessment and plan: normalized. avoid nephrotoxic drugs and renal dose as needed. lorasartan was on hold will re-intiated as bp has been poorly controlled. 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: Status: Acute Assessment and plan: Continue home dose lacosamide and Keppra- IV load given in ED- on oral home dose Keppra level therapeutic at 13.7 (9) Seizure: Status: Acute Assessment and plan: Presenting with most likely breakthrough seizure in the setting of severe sepsis UTI and staphylococcus aureus bacteremia - Continue home dose AED (10) Diabetes: Status: Chronic Assessment and plan: Continue ongoing AC &HS fingersticks A1C 7.0 seems to be around goal SSI coverage Resume home antihyperglycemic regimen at discharge- hold while inpatient (11) ALY (acute kidney injury): Status: Acute Assessment and plan: resolved will continue to monitor BMP in AM (12) Hypertension: Status: Chronic Assessment and plan: blood pressure has been poorly controlled resume Losartan 25 mg daily continue to monitor and adjust as needed. (13) GERD (gastroesophageal reflux disease): Status: Chronic Assessment and plan: On PPI (14) COPD (chronic obstructive pulmonary disease): Status: Chronic Assessment and plan: No exacerbation Continue home dose regimen (15) Meningioma: Status: Acute Assessment and plan: History of multiple cranial surgery due to meningioma most likely the cause of the seizures now on antiepileptics was on Avastin -held and will not be able to get her infusion on 04/21 call placed to oncologist Dr Scotty Espinal [phone] Irizarry's DOG BEHAVIORIST, port to be removed, patient to see Dr Irizarry after discharge (16) Hypomagnesemia: Status: Resolved Assessment and plan: supplemented and normalized (17) Contraindication to deep vein thrombosis (DVT) prophylaxis: Status: Acute Assessment and plan: Was on Eliquis held 04/17 -for port removal - heparin drip initiated Restarted Apr 21 Subjective Subjective Interval history since last seen: Mrs. Silverman is comfortable in bed. Anticipate portacath removal around noon today. Exam Narrative Exam Narrative: General: This is a pleasant, elderly woman in no distress HEENT: Normocephalic, atraumatic CV: RRR. Right chest port Resp: CTAB Abd: soft, NTND MSK: voluntary motion x4 Neuro: awake, alert, no focal deficits Objective Last Vital Signs Temp 36.1 C L 04/21/25 11:57 Pulse 62 04/21/25 11:57 Resp 17 04/21/25 11:57 BP 130/71 04/21/25 11:57 Pulse Ox 94 04/21/25 11:57 Laboratory Results - last 24 hr 04/20/25 04/20/25 13:40 20:00 APTT 53.7 H 55.5 H Time Spent with Patient Time Spent with Patient: 25-34 minutes Time was spent: preparing to see the patient(eg.review tests), obtaining and/or reviewing separately otained hiistory, ordering medications,tests, procedures, referring, communicating with other health care technician, indepentently interpreting results, counseling the patient and care coordination
[2025-04-21 12:10] LABS: PTT Activated 24.5 sec (20.6-30.2)
[2025-04-21] MEDS: Lidocaine 1% Pres-Free W/EPI 1/200,000 30 ML VIAL SC (13:10)
--- NOTE | 2025-04-21 14:11 | W.PC.ACHO ---
Registration Status: ADM IN Primary Language: Preferred Language: ED Information & Data Chief Complaint AMS/LOC 04/15/25 04:45 Other Complaint Fever 04/15/25 04:09 Triage Note [facility], 04/15/25 04:09 found to be altered by staff , incontinent of urine which is not normal for her, yelling out. temp 105 by EMS . Medical / Surgical History (Last Reviewed 10/08/24 @ 09:39 by Margarette Ojeda DPM) Cerebral venous infarction, acute Spinal stenosis Diverticular disease (Last Reviewed 10/08/24 @ 09:39 by Margarette Ojeda DPM) Synovial cyst of sacral region S/P cholecystectomy S/P craniotomy S/P cervical discectomy Most Recent Vital Signs Temperature 36.1 C L 04/21/25 11:57 Temperature Source Temporal Artery Scan 04/21/25 11:57 Pulse 62 04/21/25 11:57 Pulse Rhythm Regular 04/15/25 14:05 Pulse 77 04/15/25 10:50 Respiratory Rate 17 04/21/25 11:57 Respiratory Effort Normal, Non-Labored 04/15/25 14:05 Respiratory Depth Normal 04/15/25 14:05 Respiratory Pattern Normal 04/15/25 14:05 Blood Pressure 130/71 04/21/25 11:57 Blood Pressure Mean 90 04/21/25 11:57 Blood Pressure Position Supine 04/15/25 04:13 Pulse Oximetry 94 04/21/25 11:57 Oxygen Delivery Method Room Air 04/21/25 11:57 Oxygen Flow Rate 0 04/21/25 11:57 Pain Level 0 04/21/25 11:57 Comment rn notified 04/20/25 11:55 Allergies spider venom Allergy (Mild, Verified 10/08/24 09:04) swelling Crescent nut Allergy (Verified 10/08/24 09:04) Unknown unknown house dust Allergy (Verified 10/08/24 09:04) Unknown Penicillins Allergy (Verified 10/08/24 09:04) Unknown sulfamethoxazole (From Bactrim) Adverse Reaction (Intermediate, Verified 04/15/25 10:10) Other (See Comment) Emesis trimethoprim (From Bactrim) Adverse Reaction (Intermediate, Verified 04/15/25 10:10) Other (See Comment) Emesis Active Medications Generic Name Dose Route Start Last Admin Trade Name Freq PRN Reason Stop Dose Admin Acetaminophen 1,000 mg 04/17/25 15:36 04/21/25 08:08 Acetaminophen 500 Mg Tab PO 1,000 mg Q8H PRN PRN Administration Acyclovir 400 mg 04/16/25 20:00 04/21/25 07:54 Acyclovir 400 Mg Tab PO 400 mg TID GUANACO Administration Apixaban 5 mg 04/15/25 20:00 04/17/25 08:54 Apixaban 5 Mg Tab PO 5 mg On Hold: 04/17/25 12:49 BID GUANACO Administration Dexamethasone 1 mg 04/16/25 08:30 04/17/25 08:53 Dexamethasone 1 Mg Tab PO 1 mg On Hold: 04/17/25 15:47 DAILY GUANACO Administration Diclofenac Sodium 0 gm 04/17/25 18:05 04/21/25 13:10 Diclofenac 1% Gel 100 Gm Tube TP 1 applic QID GUANACO Administration Cefazolin Sodium/Dextrose 2 gm in 50 mls @ 100 mls/hr 04/18/25 10:00 04/21/25 11:15 Ancef Duplex IVPB Infused Q8H GUANACO Infusion Lacosamide 200 mg 04/15/25 20:00 04/21/25 07:53 Lacosamide 100 Mg Tab PO 200 mg BID GUANACO Administration Levetiracetam 500 mg 04/15/25 20:00 04/21/25 07:53 Levetiracetam 500 Mg Tab PO 500 mg BID GUANACO Administration Lidocaine/Epinephrine 30 ml 04/21/25 12:00 04/21/25 13:10 Lidocaine 1% Pres-Free W/Epi 1/200,000 30 Ml Vial SC 30 ml . LOCAL ANESTHETIC GUANACO Administration Magnesium Gluconate 1,000 mg 04/15/25 06:35 04/21/25 07:53 Magnesium Gluconate 500 Mg Tab PO 1,000 mg DAILY GUANACO Administration Pantoprazole Sodium 40 mg 04/18/25 07:30 04/21/25 07:57 Pantoprazole 40 Mg Tabcr PO 40 mg DAILY@0730 GUANACO Administration Sodium Chloride 0 ml 04/15/25 11:59 04/21/25 07:56 Normal Saline Flush 10 Ml Syr IVP 10 ml PRN PRN Administration Sodium Chloride 0 ml 04/15/25 20:00 04/21/25 07:55 Normal Saline Flush 10 Ml Syr IVP 20 ml BID GUANACO Administration IV IV Catheter Type [Right Mid-line Peripheral Line Midline] IV Catheter Type [Right Peripheral IV Forearm] IV Catheter Type [Left Upper Saline Lock arm] IV Catheter Gauge [Right 20 Forearm] IV Catheter Gauge [Left Upper 18 arm] Diagnostics 04/21/25 04/20/25 Range/Units 11:27 20:00 APTT 24.5 55.5 H (20.6-30.2) sec 04/17/25 15:10 Wound Culture - Preliminary Leg - Right Lower Staphylococcus lugdunensis Gram Stain - Final 04/16/25 15:50 Blood Culture - Preliminary Blood NO GROWTH 96 HOURS 04/16/25 16:00 Blood Culture - Preliminary Blood NO GROWTH 96 HOURS [id number] Documentation Fingerstick Glucose Start: 04/15/25 05:13 Freq: Status: Complete Protocol: Activity Type Activity Date Activity User E-sign Co-sign Detail Recorded Client Recorded Date Recorded By Document 04/15/25 05:12 BKG DAEMON(5) NVT-BG05 04/15/25 05:13 BKG DAEMON(6) Fingerstick Glucose Start: 04/15/25 11:59 Freq: .ACHS Status: Complete Protocol: Activity Type Activity Date Activity User E-sign Co-sign Detail Recorded Client Recorded Date Recorded By Document 04/20/25 11:54 BKG DAEMON(7) NVT-BG05 04/20/25 11:54 BKG DAEMON(8) Intake and Output - 24 Hour Total 04/15/25 04:06 thru 04/21/25 13:16 Intake Total 9181.018 Output Total 8525 Balance 656.018 Weight 112.899 kg Intake: IV 5071.018 Oral 4110 Output: Urine 8525 Other: Urine Color Yellow Urine Appearance Clear Urine Odor Normal Comment Urine mixed with stool. Stool Size Moderate Stool Characteristics Liquid Urinary Catheter Urinary Catheter Date of 04/15/25 Insertion [Urethral (Rangel)] Time of insertion [Urethral ( 06:10 Rangel)] Falls Risk Assessment History of Falls Previous History 04/15/25 14:05 Contributing Factors Unstable 04/15/25 14:05 Ambulatory Aids Uses ambulatory device + 04/15/25 14:05 Tubes/Lines With any additional score 04/15/25 14:05 Gait Evaluation W/any additional score 04/15/25 14:05 Cognition No cognitive impairment 04/15/25 14:05 Fall Total Score 88 04/15/25 14:05 Level of Risk Maximum Risk 04/15/25 14:05 Problems (Last Reviewed 10/08/24 @ 09:39 by Margarette Ojeda DPM) Bacteremia associated with intravascular line (Acute) Cerebral venous thrombosis (Acute) Contraindication to deep vein thrombosis (DVT) prophylaxis (Acute) Central venous catheter in place on admission (Acute) Chronic anticoagulation (Acute) Staphylococcus aureus bacteremia with sepsis (Acute) Staphylococcus aureus bacteremia (Acute) Acute kidney injury superimposed on CKD (Acute) Venous thromboembolism (VTE) (Acute) On deep vein thrombosis (DVT) prophylaxis (Acute) ALY (acute kidney injury) (Acute) Breakthrough seizure (Acute) Hypomagnesemia (Acute) Myocardial injury (Acute) Acute UTI (Acute) Seizure (Acute) Diabetes (Chronic) Hypertension (Chronic) Hyperlipidemia (Acute) GERD (gastroesophageal reflux disease) (Chronic) COPD (chronic obstructive pulmonary disease) (Chronic) 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 Tania the SOLAR PHOTOVOLTAIC DESIGNER ordered a midline to be placed on the patient. Pt now has IV midline in RAC placed by Bridger. IV heparin infusion has been restarted at previous rate (11ml/hr). I confirmed the rate with [facility] remote pharmacy team (pharmacist name unknown). PTT was ordered for 04/20 @0047. Initialized on 04/19/25 18:59 - END OF NOTE v v v v v v v v v Sending and/or Receiving Nurses: Please use comment section below to note any information pertinent to the patient hand-off not included above. Information / Comments: Pt on 1L 02 via NC, rangel and FMS in place, both patent and draining. Pt alert, oriented, verbal, requesting her home inhalers at present. Pt admitted to M/S at 1405. Report received from:TE Chong
[2025-04-21 15:00] VITALS: BP 146/77; PULSE 70; RESP 17; TEMP 36.1; O2SAT 95
--- NOTE | 2025-04-21 16:17 | ROE_ITS ---
Operative Note Operative Note PRE-OP DIAGNOSIS: bacteremia, port a cath in place POST-OP DIAGNOSIS: same PROCEDURE: right IJ port removal SURGEON: Codi Azul ANESTHESIA TYPE: Local By Surgeon PATHOLOGY: other (Catheter tip sent for bacterial culture) Procedure Description: The patient is a 69-year-old female admitted with UTI and bacteremia. Blood cultures have grown Staphylococcus species and the recommendation to remove her right internal jugular Port-A-Cath has been made. We discussed the procedure risks and benefits and alternatives and expectations. Port was removed at bedside in her hospital room. The skin of the right chest was prepped and draped in the usual sterile fashion. 8 mL of 1% lidocaine with epinephrine were injected into and around the port scar. Incision was made over the previous port scar line and visible Monocryl sutures were removed. The soft tissue was dissected down to the level of the port which had not yet been encapsulated. The port was examined and there are no sutures holding it in place. The port was removed through the incision and pressure was applied directly to the internal jugular vein. After the pressure was released there was no bleeding into the port site were visible hematoma forming at the IJ stick site. The port site on the chest wall was examined. There was a small amount of serous clear fluid which would be expected in a normal postoperative state. There was no purulence or gross sign of infection. The soft tissues of the port site were reapproximated with simple interrupted 3- 0 Vicryl sutures. This closed the subcutaneous layer. The skin was then closed with a running 4-0 Monocryl suture. The skin was washed and dried. Steri- Strips were applied. There were no complications. The patient tolerated the procedure well. The tip of the catheter was cut in a sterile fashion and placed directly into a sterile urine cup for culture. Resume anticoagulation with apixaban this evening, order placed. Date of Procedure: 04/21/25
[2025-04-21 19:20] VITALS: BP 150/60; PULSE 75; RESP 18; TEMP 36.6; O2SAT 98
[2025-04-21 22:52] VITALS: BP 148/73; PULSE 59; RESP 18; TEMP 36.4; O2SAT 96
[2025-04-22] MEDS: ceFAZolin 2 GM/50 ML BAG IVPB ×3 (01:15→17:21)
[2025-04-22] MEDS: Acetaminophen 500 MG TAB 1000 MG PO ×2 (01:23→08:57)
[2025-04-22] MEDS: Apixaban 5 MG TAB PO ×2 (05:44→20:49)
--- NOTE | 2025-04-22 07:49 | PDOC.CMPRO ---
Date of service: 04/22/25 Time of Service: 17:33 Care Management Progress Note Progress Note Text Progress Note Text: was sitting up in her chair and awake when CM met with her. She reported that she is not feeling well today, stating that construction has been “shaking [her] body and brain,” causing her to feel as though her brain is hot and her ears are ringing. The provider and RN have been made aware of her symptoms. provided two contacts for communication. Her daughter Edie Adam ([phone]) and friend Rashmi Forbes ([phone]). A referral to the [place] [facility] was submitted to assist with a long-term Medicaid application and Medicare re-enrollment, per the patient’s consent. also reported that the sales incentive analyst visited her earlier today. CM will continue to follow. Discharge Potential Discharge Needs: PCP F/U Appt Anticipated Barriers to Discharge: None Identified Patient/Family Education Needs: Review discharge instructions, discuss Ask Me Three Transportation: [facility] RCT Transportation: Wheel chair van Plan: Anticipate that will return to [facility] once she is medically stable. will require SWB 1 for IV antibiotics, prior authorization is pending. Per PT, she will likely require SNF to continue her rehab. She will f/u with the facility provider and continue per her plan of care. She will need to a new [facility] Avastin appointment (was for 04/21). She will transport via [facility] wheelchair van. CM will continue to follow and update the plan as needed. Social Determinants of Health Screening Social Determinants of health last assessed in clinic: 04/22/25 Will the Patient Participate in the Screening?: Yes Do you worry about having a steady place to live?: no Problems where you live: no known problems In the past 12 months, have you had to go without electric, gas, oil or water in your home?: no 1. Within the past 12 months, we worried whether our food would run out before we got money to buy more.: Don't know/refused 2. Within the past 12 months, the food we bought just didn't last and we didn't have money to get more.: Don't know/refused Has lack of transportation kept you from medical appointments or from doing things needed for daily living?: no Has anyone in your life made you feel unsafe or unsupported?: no How hard is it for you to pay for the very basics like food, housing, medical care, and heating? Would you say it is:: Not hard at all Do you want help finding or keeping work or a job?: I do not need or want help If for any reason you need help with day-to-day activities such as bathing, preparing meals, shopping, managing finances, etc., do you get the help you need?: I don’t need any help How often do you feel lonely or isolated from those around you?: Rarely Do you speak a language other than [place] at home?: No Health Related Social Needs Health related social needs: feeling lonely/isolated (Z60.8) Health related social needs details: says sometimes she has a little loneliness, but is not concerned
[2025-04-22 07:50] VITALS: BP 136/65; PULSE 57; RESP 16; TEMP 35.9; O2SAT 98
[2025-04-22] MEDS: Acyclovir 400 MG TAB PO ×3 (08:57→20:49)
[2025-04-22] MEDS: Magnesium Gluconate 500 MG TAB 1000 MG PO (08:57)
[2025-04-22] MEDS: Pantoprazole 40 MG TABCR PO (08:58)
[2025-04-22] MEDS: Lacosamide 100 MG TAB 200 MG PO ×2 (08:58→20:49)
[2025-04-22] MEDS: levETIRAcetam 500 MG TAB PO ×2 (08:59→20:49)
[2025-04-22] MEDS: Normal Saline Flush 10 ML SYR IVP ×3 (08:59→20:49)
[2025-04-22] MEDS: Diclofenac 1% Gel 100 GM TUBE TP ×4 (09:30→20:49)
--- NOTE | 2025-04-22 10:42 | PT.INTREAT ---
Date of service: 04/22/25 PT Notes Visit Reasons: UTI, Seizures Inpatient Physical Therapy Treatment Note Date: 04/22/2025 PRECAUTIONS:fall risk, standard, Seizure, IV access right upper arm SUBJECTIVE: Before the start of treatment, pt stated they felt a little sore in their shoulders and upper right chest at IV removal site with sutures in place.. During treatment pt restated their soreness in their shoulders. Post ambulation and resting in chair, pt reported feeling sore in shoulders but less compared to the start of treatment, and felt the adjustments the PT recommended helped. OBJECTIVE: General Observation: Pt was sitting in recliner with her legs propped up, and completed her IV antibiotic treatment. HIRAM Negrete was adding pillows under B LE to help with comfort. The IV pump was beeping to indicate treatment was completed. DPTS Sherman went and let HIRAM Negrete know treatment was completed, because TE Dillon was with another pt at the moment. At the end of the session, TE Dillon arrived to work with the pt for her IV antibiotic treatment. PAIN: 5/10 in shoulders pre ambulation, 2/10 post ambulation VITALS: Monitored by nursing Therapeutic Activities ([id number] Patient performed sit to stand with FWW Min A of 1, with verbal cueing from PT for correct hand placement to increase safety and functional ability. Patient ambulated 30 feet FWW with contact guard of 1 and stand by assist of 1. Pt then ambulated 19 feet with FWW contact guard of 1 and stand by assist of 1. Pt brought back to room and then performed sit to stand with FWW Min A of 1 with verbal cueing from PT for correct hand placement to increase safety and functional ability. Took 5 steps and then performed stand to sit in recliner with CGA and cues for hand. Ambulation Assistive Device: FWW, followed behind w/wheelchair. Weight bearing: As tolerated Assist: Contact Guard, w/stand by assist for w/c follow Distance: Ambulated 30 feet, rested in following wheel chair, ambulated 19 more feet, rested in following wheel chair, ambulated 5 feet to sit in recliner. Deviation: Pt robel, step length, and step height was reduced. Pt demonstrates reduced knee flexion during swing phase Left and left knee instability intermittently at midstance on left. Pt continued to need verbal cueing from PT and DPT to prevent pt from veering excessively to the right and left. Pt has excessive medial to lateral sway. To prevent falling PT provided contact guard and tactile cueing to help the pt stay aligned. Therapeutic Exercises ([id number]): Exercises Pt performed ankle plantar flexion with red band resistance 3x10. PT provided skilled instruction in proper exercise performance. PT provided skilled manual cues to facilitate proper muscle recruitment for the ankle dorsi flexors. Glute sets, quad sets performed x10 BLE, ASSESSMENT: Patient was able to ambulate 30 feet and then 19 feet, with moderate cueing from DPTS Sherman to help pt realign the walker to prevent pt from veering off course and running into the wall on right. Pt started the treatment with shoulder pain. PT adjusted the FWW and provided verbal cueing for the pt to stand straight up, use her legs to stand, and don’t push through the walker as much. This resulted in a reduction of pain reported. Pt still has reduced activity tolerance, increased fatigue, and difficulty with postural control and limb advancement. From this result, this pt would still benefit from skilled PT to address these concerns. PLAN: 1-2x/day, 7 days/week x 1 week. Plan of care has been reviewed with the [employer] providing the service under Physical Therapy direction. Initiate Physical Therapy intervention for strengthening, bed mobility, transfers, gait, stairs, balance training, use of assistive device. TREATMENT CODE/TIME: 63681, 76377 x2 /09:55am-10:40am DISCHARGE RECOMMENDATION: SNF Written by Jan FREITASTS [facility] Supervised by: Lindsey Lamb, PT [facility] [place], [place]
--- NOTE | 2025-04-22 15:44 | CHAPLAIN ---
was up in the chair with her feet up when I visited. She said she's feeling sick to her stomach today, she thinks because of the banging going on the floor right below her where the pharmacy is being remodeled. She is wearing earplugs already. 's port was removed and she may be here on swing bed for a while to receive antibiotics.
[2025-04-22] MEDS: traMADol 50 MG TAB PO ×2 (15:48→22:58)
[2025-04-22] MEDS: Ondansetron O.D.T. 4 MG TABEF PO (16:18)
--- NOTE | 2025-04-22 17:52 | W.PM.PROGNOT ---
Date of Service Date of service: 04/22/25 Time of Service: 17:52 Assessment and Plan Assessment and plan (1) Staphylococcus aureus bacteremia with sepsis: Status: Acute Assessment and plan: Presented with severe sepsis, which has resolved. MSSA, source possibly portacath, possibly leg wound Continue cefazolin to complete 2 week course. Cefazolin 2 mg IV q8h for 2 weeks from date of negative cultures. Echocardiogram negative 04/19 Discussed with [facility] ID 04/20, port removed, now has midline. Did not recommend CATALINA. Will need another week of IV abx (2) Cerebral venous thrombosis: Status: Acute Assessment and plan: has been anticoagulated on apixaban this was placed on hold in anticipation of port removal, was on heparin ggt, now back on apixaban (3) Acute UTI: Status: Acute Assessment and plan: E coli sensitive to cephalosporins will complete course with cefazolin (4) Acute kidney injury superimposed on CKD: Status: Resolved Assessment and plan: normalized. avoid nephrotoxic drugs and renal dose as needed. lorasartan was on hold, now resumed. 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: Status: Acute Assessment and plan: Presenting with most likely breakthrough seizure in the setting of severe sepsis UTI and staphylococcus aureus bacteremia Continue home dose lacosamide and Keppra- IV load given in ED- on oral home dose Keppra level therapeutic at 13.7 (6) Diabetes: Status: Chronic Assessment and plan: Continue ongoing AC &HS fingersticks A1C 7.0 seems to be around goal SSI coverage Resume home glipide at discharge- hold while inpatient (7) Hypertension: Status: Chronic Assessment and plan: blood pressure has been poorly controlled resumed Losartan 25 mg daily continue to monitor (8) GERD (gastroesophageal reflux disease): Status: Chronic Assessment and plan: On PPI (9) COPD (chronic obstructive pulmonary disease): Status: Chronic Assessment and plan: No exacerbation Continue home dose regimen (10) Meningioma: Status: Acute Assessment and plan: History of multiple cranial surgery due to meningioma most likely the cause of the seizures now on antiepileptics was on Avastin -held and will not be able to get her infusion on 04/21 call placed to oncologist Dr Scotty Espinal [phone], discussed with Dr Irizarry's [employer], port removed, patient to see Dr Juan C after discharge ANTONIO 04/22 which she relates to noise from contstruction. Tried APAP, tramadol, ondansatron. Change rooms. Could treat with dexamethasone if not imrpoving. (11) Hypomagnesemia: Status: Resolved Assessment and plan: supplemented and normalized Subjective Subjective Patient reports: tolerating a regular diet and voiding w/o difficulty; denies diarrhea, nausea, vomiting, shortness of breath or fever Interval history since last seen: She feels okay. ANTONIO still bothering her. She feels like construction noise making swelling from her brain tumor worse. Otherwise feels okay. Exam Narrative Exam Narrative: General: This is a pleasant woman in no distress, A&O x 3 CV: RRR. Right chest port removed. Resp: CTAB Abd: soft, NTND Neuro: awake, alert, no focal deficits Objective Last Vital Signs Temp 35.9 C L 04/22/25 07:50 Pulse 57 L 04/22/25 07:50 Resp 16 04/22/25 07:50 BP 136/65 04/22/25 07:50 Pulse Ox 98 04/22/25 07:50 Time Spent with Patient Time Spent with Patient: 35-49 minutes Time was spent: preparing to see the patient(eg.review tests), obtaining and/or reviewing separately otained hiistory, ordering medications,tests, procedures, referring, communicating with other health home health care case manager, indepentently interpreting results, counseling the patient and care coordination
[2025-04-22 20:01] VITALS: BP 138/72; PULSE 87; RESP 18; TEMP 36.2; O2SAT 95
[2025-04-22 23:23] VITALS: BP 123/58; PULSE 85; RESP 14; TEMP 36.2; O2SAT 93
[2025-04-23] MEDS: ceFAZolin 2 GM/50 ML BAG IVPB ×3 (01:55→18:05)
[2025-04-23] MEDS: Normal Saline Flush 10 ML SYR IVP ×4 (01:56→18:06)
[2025-04-23 03:17] VITALS: BP 108/84; PULSE 71; RESP 18; TEMP 36.5; O2SAT 95
[2025-04-23 06:21] VITALS: BP 128/68; PULSE 74; RESP 16; TEMP 36.2; O2SAT 92
[2025-04-23] MEDS: Lacosamide 100 MG TAB 200 MG PO (07:37)
[2025-04-23] MEDS: Pantoprazole 40 MG TABCR PO (07:37)
[2025-04-23] MEDS: Acyclovir 400 MG TAB PO ×2 (07:38→15:05)
[2025-04-23] MEDS: Magnesium Gluconate 500 MG TAB 1000 MG PO (07:38)
[2025-04-23] MEDS: Acetaminophen 500 MG TAB 1000 MG PO (07:38)
[2025-04-23] MEDS: Apixaban 5 MG TAB PO (07:38)
[2025-04-23] MEDS: levETIRAcetam 500 MG TAB PO (07:38)
[2025-04-23] MEDS: Diclofenac 1% Gel 100 GM TUBE TP ×3 (09:36→16:30)
[2025-04-23] MEDS: traMADol 50 MG TAB PO (09:40)
--- NOTE | 2025-04-23 12:45 | PDOC.CMPRO ---
Date of service: 04/23/25 Time of Service: 13:05 Care Management Progress Note Progress Note Text Progress Note Text: can be transitioned to SWB 1 status today. Per report, she may require a debridement of her right lower extremity (RLE). A wound culture was obtained and returned positive. Her insurance has approved the swing bed stay, which she is pleased about. However, she continues to require additional acute medical work-up, and her transition to swing bed is anticipated for Saturday. Her replacement cell phone has arrived, and the Patient Experience Officer will assist her with setup later today. CM will follow. Discharge Potential Discharge Needs: PCP F/U Appt Anticipated Barriers to Discharge: None Identified Patient/Family Education Needs: Review discharge instructions, discuss Ask Me Three Transportation: [facility] Transportation: Wheel chair van Plan: Anticipate that will return to [facility] Living once she is medically stable. is on SWB 1 for IV antibiotics, end date 04/30. Per PT, she will likely require SNF to continue her rehab. She will f/u with the facility provider and continue per her plan of care. She will need to a new [facility]ast[facility] appointment (was for 04/21). She will transport via [facility] wheelchair van. CM will continue to follow and update the plan as needed. Social Determinants of Health Screening Social Determinants of health last assessed in clinic: 05/05/25 Will the Patient Participate in the Screening?: Yes Do you worry about having a steady place to live?: no Problems where you live: no known problems In the past 12 months, have you had to go without electric, gas, oil or water in your home?: no 1. Within the past 12 months, we worried whether our food would run out before we got money to buy more.: Don't know/refused 2. Within the past 12 months, the food we bought just didn't last and we didn't have money to get more.: Don't know/refused Has lack of transportation kept you from medical appointments or from doing things needed for daily living?: no Has anyone in your life made you feel unsafe or unsupported?: no How hard is it for you to pay for the very basics like food, housing, medical care, and heating? Would you say it is:: Not hard at all Do you want help finding or keeping work or a job?: I do not need or want help If for any reason you need help with day-to-day activities such as bathing, preparing meals, shopping, managing finances, etc., do you get the help you need?: I don’t need any help How often do you feel lonely or isolated from those around you?: Rarely Do you speak a language other than [place]ese at home?: No Health Related Social Needs Health related social needs: feeling lonely/isolated (Z60.8) Health related social needs details: says sometimes she has a little loneliness, but is not concerned
--- NOTE | 2025-04-23 15:07 | DSE_ITS ---
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: Status: Acute (6) Diabetes: Status: Chronic (7) Hypertension: Status: Chronic (8) GERD (gastroesophageal reflux disease): Status: Chronic (9) COPD (chronic obstructive pulmonary disease): Status: Chronic (10) Meningioma: Status: Acute (11) Hypomagnesemia: Status: Resolved Discharge Plan Disposition Patient Disposition: Swing Bed(Skilled,SB1) Condition: Stable Discharge Details Reason For Visit: UTI, Seizures Admit Date/Time: 04/15/25 09:46 Admit Provider: Eduar Gonzalez Attending Provider: Eduar Gonzalez Primary Care Provider: Francine Owen Hospital Course Hospital Course: 69-year-old female history of seizures related to meningioma on oral Keppra and lacosamide, cerebral venous thrombosis, PAD, diabetes, hypertension, COPD, CKD stage III presented to the ED from a local [facility] facility for evaluation of confusion and had a witnessed seizure. She met criteria for severe sepsis and was admitted to the ICU. She had a positive u/a and grew e. coli in the urine also MSSA in the blood. She was given IV Keppra in the ED. She improved clinically by day 2 on 04/16 and the second set of blood cultures from that date remained no growth. She was initially treated with ceftriaxone for UTI, then transitioned to cefezolin. [facility] ID was consulted. They recommended 2 weeks of IV antibiotics from the date of the first negative cutlure on 04/16, which would be through 03/30. They recommended removing the port she had for her avastin therapy for the meningioma. Port was removed 04/21 by surgery. Midline was placed instead. The tip of the port was growing GPC at the time of discharge to swing, but per ID with quick clearance of bacteremia this wouldn't necessarily require extending antibiotic course. TTE was negative for vegetation and CATALINA was not recommended due to rapid clearance of bacteremia. Urine e-coli was also sensitive to cefazolin. Her ALY on CKD resolved by day two (creatinine down from 1.2 to 0.8 baseline. A previous ulcer on her right lower leg re-opened while she was here. She was seen by wound RN 04/18. No debridement needed. Swab from this wound 04/17 grew only staph lugdunensis. She did have intermittent headaches off/on during her stay. 04/[address] a repeat CT that was negative. She was given tramadol which helped a little. Construction noise made it worse, so her room wast moved, which helped. She was discharged to [facility] ([place], [place]) status to complete her second week of IV cefazolin. Home Meds and New Rx's Prescriptions: Held cholecalciferol (vitamin D3) 50 mcg (2,000 unit) capsule 50 mcg PO DAILY Hold Instructions: Resume on 05/01/25. as per MAR from [facility] faxed on 04/17/25 at 13:32- resume as per outpatient provider omega-3 fatty acids [Fish Oil Concentrate] 1,000 mg capsule 1,000 mg PO BID Hold Instructions: Resume on 05/01/25. as per MAR from [facility] faxed on 04/17/25 at 13:32- resume as per outpatient provider Alive Women's Multivitamin 4.5 mg iron- 120 mcg-60 mcg tablet 1 tab PO DAILY Hold Instructions: Resume on 05/01/25. as per MAR from [facility] faxed on 04/17/25 at 13:32- resume as per outpatient provider cyanocobalamin (vitamin B-12) 1,000 mcg capsule 1,000 mcg PO DAILY Hold Instructions: Resume on 05/01/25. as per MAR from [facility] faxed on 04/17/25 at 13:32- resume as per outpatient provider dexamethasone 1 mg tablet 1 mg PO DAILY Hold Instructions: Resume on 05/01/25. as per MAR from [facility] faxed on 04/17/25 at 13:32- resume as per outpatient provider Patient Comments: TAKE 1 & 1/2 TABLETS BY MOUTH DAILY FOR 1 WEEK, THEN TAKE 1 TABLET DAILY THEREAFTER fluconazole 100 mg tablet 100 mg PO DAILY Hold Instructions: Resume on 05/01/25. as per MAR from [facility] faxed on 04/17/25 at 13:32- resume as per outpatient provider glipizide 2.5 mg tablet 2.5 mg PO DAILY Hold Instructions: Resume on 05/01/25. as per MAR from [facility] faxed on 04/17/25 at 13:32- resume as per outpatient provider losartan 25 mg tablet 25 mg PO DAILY Hold Instructions: Resume on 05/01/25. as per MAR from [facility] faxed on 04/17/25 at 13:32- resume as per outpatient provider omeprazole 40 mg capsule,delayed release(DR/EC) 40 mg PO DAILY Hold Instructions: Resume on 05/01/25. as per MAR from [facility] faxed on 04/17/25 at 13:32- resume as per outpatient provider Patient Comments: TAKE ONE CAPSULE BY MOUTH EVERY DAY gabapentin 300 mg capsule 300 mg PO BID Hold Instructions: Resume on 05/01/25. Not listed as per MAR from [facility] faxed on 04/17/25 at 13:32- resume as per outpatient provider diphenhydramine HCl [Benadryl] 25 mg capsule 25 mg PO Q12H PRN PRN Hold Instructions: Resume on 05/01/25. as per MAR from [facility] faxed on 04/17/25 at 13:32- resume as per outpatient provider No Action Eliquis 5 mg tablet 5 mg PO BID lacosamide 200 mg tablet 200 mg PO BID levetiracetam 750 mg tablet 500 mg PO BID calcium carbonate 600 mg calcium (1,500 mg) tablet 600 mg PO DAILY bisacodyl 10 mg suppository 10 mg MI Q12H PRN PRN Discharge Instructions Activity:: Activity as Tolerated Equipment/Supplies:: No Equipment Needed Diet:: Carb Counting DS: Summary Time Spent with Patient providing and/or coordinating discharge services: Greater than 30 minutes Status at Discharge Functional status at discharge: uses cane/walker Overall status at discharge: patient is progressing back to baseline Mental Status: mental status grossly normal Speech and Movement: speech and movement normal Mood: congruent mood Affect: normal affect Quality:SDOH Health Related Social Needs: Health related social needs lonely/isolated Health related social needs details says sometimes she has a little loneliness, but is not concerned Health related social needs details: says sometimes she has a little loneliness, but is not concerned Exam Narrative Exam Narrative: General: This is a pleasant woman in no distress, A&O x 3 CV: RRR. Right chest port removed. Resp: CTAB Abd: soft, NTND Neuro: awake, alert, no focal deficits EXT: 1.5 x 1cm ulcer, dress with honey, minimal surrounding erythema right ankle. Dressed, mild serosanguinous drainage on mepilex. Psych Mental Status: mental status grossly normal Speech and Movement: speech and movement normal Mood: congruent mood Affect: normal affect DS: Data Vitals/I&O Vitals and I&O: Vital Signs Temperature 36.2 C L 04/23/25 06:21 Temperature Source Temporal Artery Scan 04/23/25 06:21 Pulse 74 04/23/25 06:21 Pulse Rhythm Regular 04/15/25 14:05 Pulse 77 04/15/25 10:50 Respiratory Rate 16 04/23/25 06:21 Respiratory Effort Normal, Non-Labored 04/15/25 14:05 Respiratory Depth Normal 04/15/25 14:05 Respiratory Pattern Normal 04/15/25 14:05 Blood Pressure 128/68 04/23/25 06:21 Blood Pressure Mean 88 04/23/25 06:21 Blood Pressure Position Supine 04/15/25 04:13 Pulse Oximetry 92 04/23/25 06:21 Oxygen Delivery Method Room Air 04/23/25 06:21 Oxygen Flow Rate 0 04/23/25 06:21 Pain Level 5 04/23/25 09:40 Comment rn notified 04/20/25 11:55 Intake & Output 04/22/25 04/23/25 04/23/25 23:59 11:59 23:59 Intake Total 290 / 630 550 / 550 Output Total 350 / 1300 300 / 300 Balance -60 / -670 250 / 250 Intake: IV 50 / 150 110 / 110 Oral 240 / 480 440 / 440 Output: Urine 350 / 1300 300 / 300 Other: Urine Color Yellow Yellow Urine Appearance Clear Clear Urine Odor Normal Normal Comment pt dry at this time Stool Size Moderate Stool Characteristics Formed Data Completed and Pending Pending Labs at Discharge: 04/15/25 04/15/25 04/15/25 04:40 04:46 04:50 WBC 22.65 H RBC 4.22 Hgb 12.0 Hct 37.6 MCV 89 MCH 28.4 MCHC 31.9 L RDW 14.4 Plt Count 225 MPV 10.3 Immature Gran % 1.2 Neutrophils % 81.2 Lymphocytes % 12.3 Monocytes % 4.8 Eosinophils % 0.2 Basophils % 0.3 Nucleated RBC % 0.0 Absolute Neutrophils 18.39 H Absolute Lymphocytes 2.79 Absolute Monocytes 1.09 H Absolute Eosinophils 0.05 Absolute Basophils 0.07 RBC Morphology PT 10.9 INR 1.1 APTT 23.5 VBG pH 7.47 H VBG pCO2 40 L VBG pO2 35 VBG HCO3 29 H VBG Total CO2 26 VBG O2 Saturation 67 VBG Base Excess 6 H VBG Lactate 2.7 H* Sodium 140 Potassium 3.5 Chloride 100 Carbon Dioxide 28.6 Anion Gap 11.4 H BUN 14 Creatinine 1.2 H Est GFR (CKD-EPI 2020) 49.61 Glucose 136 H Hemoglobin A1c 7.0 H Calcium 8.9 Magnesium 1.6 L Total Bilirubin 0.6 AST 18 ALT 29 Alkaline Phosphatase 83 Troponin I 17 Total Protein 7.2 Albumin 3.3 L Procalcitonin < 0.10 Urine Color Urine Clarity Urine pH Ur Specific [place] Urine Protein Urine Ketones Urine Blood Urine Nitrite Urine Bilirubin Urine Urobilinogen Ur Leukocyte Esterase Urine RBC Urine WBC Ur Epithelial Cells Urine Crystals Urine Bacteria Urine Casts Urine Mucus Ur Culture Indicated? Urine Glucose Random Vancomycin Levetiracetam 13.7 COVID-19 Source Nasopharynx SARS-CoV-2 (PCR) Negative Influenza Type A (PCR) Negative Influenza Type B (PCR) Negative RSV (PCR) Negative Add-On Test Request 04/15/25 04/15/25 04/15/25 04:59 05:40 06:07 WBC RBC Hgb Hct MCV MCH MCHC RDW Plt Count MPV Immature Gran % Neutrophils % Lymphocytes % Monocytes % Eosinophils % Basophils % Nucleated RBC % Absolute Neutrophils Absolute Lymphocytes Absolute Monocytes Absolute Eosinophils Absolute Basophils RBC Morphology PT INR APTT VBG pH VBG pCO2 VBG pO2 VBG HCO3 VBG Total CO2 VBG O2 Saturation VBG Base Excess VBG Lactate 2.5 H* Sodium Potassium Chloride Carbon Dioxide Anion Gap BUN Creatinine Est GFR (CKD-EPI 2020) Glucose Hemoglobin A1c Calcium Magnesium Total Bilirubin AST ALT Alkaline Phosphatase Troponin I 30 Total Protein Albumin Procalcitonin Urine Color Yellow Urine Clarity Clear Urine pH 5.5 Ur Specific [place] 1.010 Urine Protein Negative Urine Ketones Negative Urine Blood Negative Urine Nitrite Positive H Urine Bilirubin Negative Urine Urobilinogen 0.2 Ur Leukocyte Esterase Negative Urine RBC Negative Urine WBC 0-2 Ur Epithelial Cells Few Urine Crystals Negative Urine Bacteria Moderate Urine Casts Negative Urine Mucus Negative Ur Culture Indicated? C&S Done As Ordered Urine Glucose Negative Random Vancomycin Levetiracetam COVID-19 Source Cancelled SARS-CoV-2 (PCR) Cancelled Influenza Type A (PCR) Cancelled Influenza Type B (PCR) Cancelled RSV (PCR) Cancelled Add-On Test Request 04/15/25 04/15/25 04/15/25 07:36 08:38 19:04 WBC RBC Hgb Hct MCV MCH MCHC RDW Plt Count MPV Immature Gran % Neutrophils % Lymphocytes % Monocytes % Eosinophils % Basophils % Nucleated RBC % Absolute Neutrophils Absolute Lymphocytes Absolute Monocytes Absolute Eosinophils Absolute Basophils RBC Morphology PT INR APTT VBG pH VBG pCO2 VBG pO2 VBG HCO3 VBG Total CO2 VBG O2 Saturation VBG Base Excess VBG Lactate 1.8 Sodium Potassium Chloride Carbon Dioxide Anion Gap BUN Creatinine Est GFR (CKD-EPI 2020) Glucose Hemoglobin A1c Calcium Magnesium Total Bilirubin AST ALT Alkaline Phosphatase Troponin I 50 Total Protein Albumin Procalcitonin Urine Color Urine Clarity Urine pH Ur Specific [place] Urine Protein Urine Ketones Urine Blood Urine Nitrite Urine Bilirubin Urine Urobilinogen Ur Leukocyte Esterase Urine RBC Urine WBC Ur Epithelial Cells Urine Crystals Urine Bacteria Urine Casts Urine Mucus Ur Culture Indicated? Urine Glucose Random Vancomycin Levetiracetam COVID-19 Source SARS-CoV-2 (PCR) Influenza Type A (PCR) Influenza Type B (PCR) RSV (PCR) Add-On Test Request DONE 04/16/25 04/16/25 04/17/25 06:36 18:12 06:10 WBC 25.16 H* 11.44 H RBC 3.59 L 3.70 L Hgb 10.6 L 10.7 L Hct 32.6 L 33.5 L MCV 91 91 MCH 29.5 28.9 MCHC 32.5 31.9 L RDW 14.6 14.8 H Plt Count 190 191 MPV 9.9 10.4 Immature Gran % 0.8 0.5 Neutrophils % 88.8 81.3 Lymphocytes % 3.9 9.5 Monocytes % 6.2 7.5 Eosinophils % 0.0 0.9 Basophils % 0.3 0.3 Nucleated RBC % 0.0 0.0 Absolute Neutrophils 22.34 H 9.30 H Absolute Lymphocytes 0.98 L 1.09 L Absolute Monocytes 1.56 H 0.86 H Absolute Eosinophils 0.00 0.10 Absolute Basophils 0.08 0.03 RBC Morphology Normal PT INR APTT VBG pH VBG pCO2 VBG pO2 VBG HCO3 VBG Total CO2 VBG O2 Saturation VBG Base Excess VBG Lactate Sodium 142 140 Potassium 3.8 3.9 Chloride 108 H 105 Carbon Dioxide 26.1 25.9 Anion Gap 7.9 9.1 BUN 12 19 H Creatinine 0.8 1.1 H Est GFR (CKD-EPI 2020) 80.71 55.07 Glucose 122 H 113 H Hemoglobin A1c Calcium 8.9 8.7 Magnesium 1.9 Total Bilirubin AST ALT Alkaline Phosphatase Troponin I Total Protein Albumin Procalcitonin Urine Color Urine Clarity Urine pH Ur Specific [place] Urine Protein Urine Ketones Urine Blood Urine Nitrite Urine Bilirubin Urine Urobilinogen Ur Leukocyte Esterase Urine RBC Urine WBC Ur Epithelial Cells Urine Crystals Urine Bacteria Urine Casts Urine Mucus Ur Culture Indicated? Urine Glucose Random Vancomycin 11.7 Levetiracetam COVID-19 Source SARS-CoV-2 (PCR) Influenza Type A (PCR) Influenza Type B (PCR) RSV (PCR) Add-On Test Request 04/18/25 04/18/25 04/19/25 05:55 22:20 04:30 WBC 8.83 11.05 H RBC 3.97 3.97 Hgb 11.5 11.5 Hct 35.9 L 35.5 L MCV 90 89 MCH 29.0 29.0 MCHC 32.0 32.4 RDW 14.6 14.6 Plt Count 208 208 MPV 10.3 10.1 Immature Gran % 0.9 1.9 Neutrophils % 63.7 57.8 Lymphocytes % 22.3 26.8 Monocytes % 10.6 9.7 Eosinophils % 1.9 3.1 Basophils % 0.6 0.7 Nucleated RBC % 0.0 0.0 Absolute Neutrophils 5.62 6.39 Absolute Lymphocytes 1.97 2.96 Absolute Monocytes 0.94 H 1.07 H Absolute Eosinophils 0.17 0.34 Absolute Basophils 0.05 0.08 RBC Morphology PT INR APTT 34.8 H 114.1 H* VBG pH VBG pCO2 VBG pO2 VBG HCO3 VBG Total CO2 VBG O2 Saturation VBG Base Excess VBG Lactate Sodium 142 142 Potassium 3.6 3.8 Chloride 107 106 Carbon Dioxide 28.0 26.9 Anion Gap 7.0 9.1 BUN 20 H 19 H Creatinine 0.8 0.9 Est GFR (CKD-EPI 2020) 80.71 70.07 Glucose 124 H 117 H Hemoglobin A1c Calcium 8.6 8.5 Magnesium 2.0 Total Bilirubin 0.2 AST 28 ALT 43 Alkaline Phosphatase 77 Troponin I Total Protein 6.1 L Albumin 2.6 L Procalcitonin Urine Color Urine Clarity Urine pH Ur Specific [place] Urine Protein Urine Ketones Urine Blood Urine Nitrite Urine Bilirubin Urine Urobilinogen Ur Leukocyte Esterase Urine RBC Urine WBC Ur Epithelial Cells Urine Crystals Urine Bacteria Urine Casts Urine Mucus Ur Culture Indicated? Urine Glucose Random Vancomycin Levetiracetam COVID-19 Source SARS-CoV-2 (PCR) Influenza Type A (PCR) Influenza Type B (PCR) RSV (PCR) Add-On Test Request 04/19/25 04/19/25 04/20/25 10:20 18:00 00:54 WBC RBC Hgb Hct MCV MCH MCHC RDW Plt Count MPV Immature Gran % Neutrophils % Lymphocytes % Monocytes % Eosinophils % Basophils % Nucleated RBC % Absolute Neutrophils Absolute Lymphocytes Absolute Monocytes Absolute Eosinophils Absolute Basophils RBC Morphology PT INR APTT 61.6 H 23.2 49.1 H VBG pH VBG pCO2 VBG pO2 VBG HCO3 VBG Total CO2 VBG O2 Saturation VBG Base Excess VBG Lactate Sodium Potassium Chloride Carbon Dioxide Anion Gap BUN Creatinine Est GFR (CKD-EPI 2020) Glucose Hemoglobin A1c Calcium Magnesium Total Bilirubin AST ALT Alkaline Phosphatase Troponin I Total Protein Albumin Procalcitonin Urine Color Urine Clarity Urine pH Ur Specific [place] Urine Protein Urine Ketones Urine Blood Urine Nitrite Urine Bilirubin Urine Urobilinogen Ur Leukocyte Esterase Urine RBC Urine WBC Ur Epithelial Cells Urine Crystals Urine Bacteria Urine Casts Urine Mucus Ur Culture Indicated? Urine Glucose Random Vancomycin Levetiracetam COVID-19 Source SARS-CoV-2 (PCR) Influenza Type A (PCR) Influenza Type B (PCR) RSV (PCR) Add-On Test Request 04/20/25 04/20/25 04/20/25 08:35 13:40 20:00 WBC RBC Hgb Hct MCV MCH MCHC RDW Plt Count MPV Immature Gran % Neutrophils % Lymphocytes % Monocytes % Eosinophils % Basophils % Nucleated RBC % Absolute Neutrophils Absolute Lymphocytes Absolute Monocytes Absolute Eosinophils Absolute Basophils RBC Morphology PT INR APTT 112.0 H* 53.7 H 55.5 H VBG pH VBG pCO2 VBG pO2 VBG HCO3 VBG Total CO2 VBG O2 Saturation VBG Base Excess VBG Lactate Sodium Potassium Chloride Carbon Dioxide Anion Gap BUN Creatinine Est GFR (CKD-EPI 2020) Glucose Hemoglobin A1c Calcium Magnesium Total Bilirubin AST ALT Alkaline Phosphatase Troponin I Total Protein Albumin Procalcitonin Urine Color Urine Clarity Urine pH Ur Specific [place] Urine Protein Urine Ketones Urine Blood Urine Nitrite Urine Bilirubin Urine Urobilinogen Ur Leukocyte Esterase Urine RBC Urine WBC Ur Epithelial Cells Urine Crystals Urine Bacteria Urine Casts Urine Mucus Ur Culture Indicated? Urine Glucose Random Vancomycin Levetiracetam COVID-19 Source SARS-CoV-2 (PCR) Influenza Type A (PCR) Influenza Type B (PCR) RSV (PCR) Add-On Test Request 04/21/25 11:27 WBC RBC Hgb Hct MCV MCH MCHC RDW Plt Count MPV Immature Gran % Neutrophils % Lymphocytes % Monocytes % Eosinophils % Basophils % Nucleated RBC % Absolute Neutrophils Absolute Lymphocytes Absolute Monocytes Absolute Eosinophils Absolute Basophils RBC Morphology PT INR APTT 24.5 VBG pH VBG pCO2 VBG pO2 VBG HCO3 VBG Total CO2 VBG O2 Saturation VBG Base Excess VBG Lactate Sodium Potassium Chloride Carbon Dioxide Anion Gap BUN Creatinine Est GFR (CKD-EPI 2020) Glucose Hemoglobin A1c Calcium Magnesium Total Bilirubin AST ALT Alkaline Phosphatase Troponin I Total Protein Albumin Procalcitonin Urine Color Urine Clarity Urine pH Ur Specific [place] Urine Protein Urine Ketones Urine Blood Urine Nitrite Urine Bilirubin Urine Urobilinogen Ur Leukocyte Esterase Urine RBC Urine WBC Ur Epithelial Cells Urine Crystals Urine Bacteria Urine Casts Urine Mucus Ur Culture Indicated? Urine Glucose Random Vancomycin Levetiracetam COVID-19 Source SARS-CoV-2 (PCR) Influenza Type A (PCR) Influenza Type B (PCR) RSV (PCR) Add-On Test Request Preliminary micro results at discharge 04/21/25 13:00 Tip/Tube Catheter Tip Culture - Preliminary Gram positive alex PFS All Active Problems (Updated 04/23/25 @ 15:05 by Joby Hayse) MSSA bacteremia (Acute) Bacteremia associated with intravascular line (Acute) Contraindication to deep vein thrombosis (DVT) prophylaxis (Acute) Central venous catheter in place on admission (Acute) Chronic anticoagulation (Acute) Staphylococcus aureus bacteremia with sepsis (Acute) Staphylococcus aureus bacteremia (Acute) Venous thromboembolism (VTE) (Acute) On deep vein thrombosis (DVT) prophylaxis (Acute) ALY (acute kidney injury) (Acute) Breakthrough seizure (Acute) Myocardial injury (Acute) Acute UTI (Acute) Brain tumor (Acute) Seizure (Acute) Sepsis (Acute) PAD (peripheral artery disease) (Acute) PVD (peripheral vascular disease) (Chronic) Dystrophia unguium (Acute) Onychomycosis (Acute) Ingrown toenail (Acute) Cerebral venous thrombosis (Acute) 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) GERD (gastroesophageal reflux disease) (Chronic) Peripheral neuropathy (Acute) Diabetes (Chronic) Hypertension (Chronic) Vitamin B12 deficiency (non anemic) (Acute) Obstructive sleep apnea (Chronic) Meningioma (Acute) Hyperlipidemia (Acute) COPD (chronic obstructive pulmonary disease) (Chronic) Medical History Cerebral venous thrombosis Cerebral venous infarction, acute Spinal stenosis cervical Diverticular disease Surgical History Synovial cyst of sacral region resection S/P cholecystectomy S/P craniotomy 1999 and 2018 S/P cervical discectomy C5-6 decompression for cord impingement Family History Mother Stroke Father Diabetes Heart disease Social History Smoking/Tobacco Use Status: Current every day Tobacco Type: cigarettes Smoking risk assessment performed?: Yes Alcohol Intake: never Drug use: Never Substance use type: marijuana Household members: none Housing: house Number of Children: 2 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
--- NOTE | 2025-04-23 15:13 | PT.INNT ---
Date of service: 04/23/25 Time of Service: 11:00 PT Notes Visit Reasons: UTI, Seizures Pt approached x 2 for PT session this a.m. Pt reclined in her chair right eye half closed and with slow responses to questions.This is a significant change from last session inwhich pt was able to amb with FWW and w/c follow. She reports she has had a headache since last evening d/t the candice rivera. Pt with known menigioma. Discussed with TE Dillon who requested pt on hold for treatment today. RN to notify provider.
[2025-04-23 15:46] VITALS: BP 150/65; PULSE 81; RESP 16; TEMP 36.4; O2SAT 92
== END 2025-04-23 18:51 | disposition swing bed (61) | DRG 270 ==
LOC: ER 09:09 → MS 11:12
PROVIDERS: Family Medicine; Hospitalist; Nurse Practitioner Acute Care; Student in an Organized Health Care Education/Training Program; Surgery; Admitting Provider Family Medicine; Emergency Provider Emergency Medicine; PCP Physician Assistant; Responsible Provider Family Medicine; Visit Provider Family Medicine
DX: T80.211A Bloodstream infection due to central venous catheter, initial encounter (principal); A41.01 Sepsis due to Methicillin susceptible Staphylococcus aureus; R65.20 Severe sepsis without septic shock; G40.109 Localization-related (focal) (partial) symptomatic epilepsy and epileptic syndromes with simple partial seizures, not intractable, without status epilepticus; N17.9 Acute kidney failure, unspecified; N39.0 Urinary tract infection, site not specified; L97.311 Non-pressure chronic ulcer of right ankle limited to breakdown of skin; E11.22 Type 2 diabetes mellitus with diabetic chronic kidney disease; I12.9 Hypertensive chronic kidney disease with stage 1 through stage 4 chronic kidney disease, or unspecified chronic kidney disease; Z79.899 Other long term (current) drug therapy; E78.5 Hyperlipidemia, unspecified; K21.9 Gastro-esophageal reflux disease without esophagitis; J44.9 Chronic obstructive pulmonary disease, unspecified; E83.42 Hypomagnesemia; B95.61 Methicillin susceptible Staphylococcus aureus infection as the cause of diseases classified elsewhere; Z95.828 Presence of other vascular implants and grafts; Z79.01 Long term (current) use of anticoagulants; Z86.718 Personal history of other venous thrombosis and embolism; I73.9 Peripheral vascular disease, unspecified; B95.1 Streptococcus, group B, as the cause of diseases classified elsewhere; D53.8 Other specified nutritional anemias; E11.42 Type 2 diabetes mellitus with diabetic polyneuropathy; G47.33 Obstructive sleep apnea (adult) (pediatric); Z86.73 Personal history of transient ischemic attack (TIA), and cerebral infarction without residual deficits; F17.210 Nicotine dependence, cigarettes, uncomplicated; B37.31 Acute candidiasis of vulva and vagina; R51.9 Headache, unspecified; N18.30 Chronic kidney disease, stage 3 unspecified; Z79.84 Long term (current) use of oral hypoglycemic drugs; R45.89 Other symptoms and signs involving emotional state; D32.0 Benign neoplasm of cerebral meninges; R32 Unspecified urinary incontinence
CPT/HCPCS: 36590; 36410; 00123; 36415; 36416; 51702; 74177; 80048; 80053; 82805; 82962; 84145; 87040; 87077; 87637; 93005; 96361; 96365; 96366; 96367; 96368; 96375; 97110; 97112; 97161; 97530; 99222; 99231; 99291; 70450; 71260; 80177; 80202; 81003; 81015; 83036; 83605; 83735; 84484; 85025; 85610; 85730; 87070; 87086; 87186; 87205; 93010; 93306; 99223; 99232; 99233; 99238; J0131; J0690; J0696; J1100; J1644; J1815; J1953; J1956; J2004; J3010; J3373; J3490; J8540

== ENCOUNTER 2025-04-23 22:41 | Inpatient (IN) | payer MEDICARE, SELFPAY ==
[2025-04-23] MEDS: ceFAZolin 2 GM/50 ML BAG IVPB (20:56)
[2025-04-23] MEDS: Fluconazole 150 MG TAB PO (20:57)
[2025-04-23] MEDS: Apixaban 5 MG TAB PO (20:57)
[2025-04-23] MEDS: Lacosamide 100 MG TAB 200 MG PO (20:57)
[2025-04-23] MEDS: Acyclovir 400 MG TAB PO (20:58)
[2025-04-23] MEDS: levETIRAcetam 500 MG TAB PO (20:58)
[2025-04-23] MEDS: Diclofenac 1% Gel 100 GM TUBE TP (20:58)
[2025-04-23 21:00] VITALS: BP 137/61; PULSE 90; RESP 18; TEMP 36.8; O2SAT 93
[2025-04-23] MEDS: Normal Saline Flush 10 ML SYR IVP (21:00)
[2025-04-24] MEDS: ceFAZolin 2 GM/50 ML BAG IVPB ×3 (03:02→18:16)
[2025-04-24 06:37] LABS: Abs Immature Grans 0.14 10^3/uL (0.0-0.06); HCT 35.0 % (36.0-46.0); HGB 11.1 g/dL (11.2-15.7); Immature Grans % 1.2 %; MCH 28.9 pg (27.0-33.0); MCHC 31.7 % (32.0-36.0); MCV 91 fL (80-95); MPV 10.3 fL (8.0-11.0); Platelet Count 253 10^3/uL (130-400); RBC 3.84 10^6/uL (3.93-5.22); RDW 14.6 % (11.7-14.6); RDW-SD 48.1 fL; WBC 11.63 10^3/uL (4.4-10.8)
[2025-04-24 07:00] LABS: C-Reactive Protein 3.23 mg/dL (<or=0.5)
[2025-04-24 07:53] VITALS: BP 118/59; PULSE 86; RESP 17; TEMP 36.5; O2SAT 94
[2025-04-24] MEDS: levETIRAcetam 500 MG TAB PO ×2 (09:06→21:55)
[2025-04-24] MEDS: Apixaban 5 MG TAB PO ×2 (09:06→21:56)
[2025-04-24] MEDS: Pantoprazole 40 MG TABCR PO (09:06)
[2025-04-24] MEDS: Magnesium Gluconate 500 MG TAB 1000 MG PO (09:06)
[2025-04-24] MEDS: Fluconazole 100 MG TAB PO (09:06)
[2025-04-24] MEDS: Acyclovir 400 MG TAB PO ×3 (09:06→21:56)
[2025-04-24] MEDS: Dexamethasone 1 MG TAB PO (09:07)
[2025-04-24] MEDS: Lacosamide 100 MG TAB 200 MG PO ×2 (09:07→21:56)
[2025-04-24] MEDS: Diclofenac 1% Gel 100 GM TUBE TP ×2 (09:07→22:38)
[2025-04-24] MEDS: Normal Saline Flush 10 ML SYR IVP ×3 (09:08→21:56)
--- NOTE | 2025-04-24 09:57 | IN_ITS ---
PT Notes Visit Reasons: UTI seizures Inpatient Physical Therapy Evaluation/Swing Bed Date: 04/24/25 Referring Doctor: Joel Erickson PT Orders: PT CONSULT:Eval for ADsafety consult for d/c Precautions: epilepsy, standard, fall Patient Profile/Admitting Diagnosis: UTI, seizures Subjective: Pt presented to the ED 04/15/25 from [facility] and rehab with increased confusion. She has a history of seizures on oral Keppra and lacosamide, cerebral venous infarction, brain meningioma, PVD, PAD, diabetes, hypertension hyperlipidemia, GERD COPD CKD stage III. She had a witnessed seizure in the ED. She was diagnosed with a UTI and then admitted to the [facility] floor. She states she normally lives in [facility] but has been at the rehab center for the past month trying to get stronger. She has been transfered to Swing bed for further antibiotic treatment, and to continue on strengthening and ambulation. This am she required nursing staff to transfer her with steady and with 2 people, suggesting a decline in status. Objective: General Observation: [] Mental Status: A+Ox4 Pain: [] Vital Signs: monitored by nursing Strength: Right/Left Lower Extremity: R/L hip flex 4/5, R/L knee ext 4+/5, R/L ankle DF 4+/5 Sensation: Describes hyposensitivity on LLE from her lateral knee to her ankle Bed Mobility/Transfers: sit to stand w/CGA stand to sit w/CGA Gait: Ambulates 30 ft w/RW and CGA Balance: Static Sitting: Good Dynamic Sitting: Good Static Standing: Fair Dynamic Standing: Fair - able to march in place with use of RW for UE support Special Tests: Mobility Limitations Standardized Measure [facility] AM-PAC 6 clicks Basic Mobility Inpatient Short Form: Raw Score: 17 CMS Score: 50.57% Informed Consent/Education: Patient instructed in purpose of PT consult and plan of care. Assessment: Return back to [facility] when medically appropriate which she is hoping for soon. She demonstrates weaknesses in her bilat LEs which is likely the main cause for her lack of mobility. Exercises were reviewed with her that she had been doing at rehab which she seems compliant with continuing. She will continue to benefit from PT while in the hospital to progress her functionally as tolerated. Patient is assessed as a [x] Low 73568 complexity based on the following: History: Low Examination: Low Presentation: Low Decision Making: Low Goals: Goals X1 week 1. Sit-Stand independently 2. Stand-Sit independently 3. Bed-Chair independently 4. Chair-Bed independently 5. Gait - ambulates 75 ft w/RW w/SBA Plan of Care/Treatment Plan: 1-2x/day, 7 days/week x 1 week. Plan of care has been reviewed with the BD SPECIAL EDUCATION TEACHER providing the service under Physical Therapy direction. Initiate Physical Therapy intervention for strengthening, bed mobility, transfers, gait, stairs, balance training, use of assistive device. DISCHARGE RECOMMENDATIONS: [x] SNF for continued rehabilitation TREATMENT CODE/TIME: Shorty Evangelista ([id number]) x1 - 35 min
--- NOTE | 2025-04-24 16:49 | PT.INNT ---
PT Notes Visit Reasons: UTI seizures Per nursing staff she seems to have a decline in physical status where they required a 2 person steady for transfers today, and when checked in on her later she was just put back in bed. Will evaluate tomorrow to better attain her PT status.
[2025-04-24 19:30] VITALS: BP 144/72; PULSE 88; RESP 18; TEMP 36.5; O2SAT 96
[2025-04-25] MEDS: Normal Saline Flush 10 ML SYR IVP ×5 (02:25→20:19)
[2025-04-25] MEDS: ceFAZolin 2 GM/50 ML BAG IVPB ×3 (02:25→17:53)
[2025-04-25] MEDS: Dexamethasone 1 MG TAB PO (08:20)
[2025-04-25] MEDS: Magnesium Gluconate 500 MG TAB 1000 MG PO (08:20)
[2025-04-25] MEDS: Lacosamide 100 MG TAB 200 MG PO ×2 (08:20→20:18)
[2025-04-25] MEDS: levETIRAcetam 500 MG TAB PO ×2 (08:20→20:18)
[2025-04-25] MEDS: Acyclovir 400 MG TAB PO ×3 (08:20→20:18)
[2025-04-25] MEDS: Apixaban 5 MG TAB PO ×2 (08:20→20:18)
[2025-04-25] MEDS: Pantoprazole 40 MG TABCR PO (08:20)
[2025-04-25] MEDS: Fluconazole 100 MG TAB PO (08:20)
--- NOTE | 2025-04-25 08:52 | IN_ITS ---
Date of service: 04/25/25 Time of Service: 09:20 PT Notes Visit Reasons: UTI seizures Inpatient Physical Therapy Evaluation/Swing Bed Date: 04/25/25 Referring Doctor: Joel Erickson PT Orders: PT CONSULT:Eval for ADsafety consult for d/c Precautions: epilepsy, standard, fall Patient Profile/Admitting Diagnosis: UTI, seizures Pt presented to the ED 04/15/25 from [facility] and rehab with increased confusion. She has a history of seizures on oral Keppra and lacosamide, cerebral venous infarction, brain meningioma, PVD, PAD, diabetes, hypertension hyperlipidemia, GERD COPD CKD stage III. She had a witnessed seizure in the ED. She was diagnosed with a UTI and then admitted to the [facility] floor. She states she normally lives in [facility] but has been at the rehab center for the past month trying to get stronger. She has been transfered to Swing bed for further antibiotic treatment, and to continue on strengthening and ambulation. Per nursing staff yesterday(04/24/25) she required nursing staff to transfer her with steady and with 2 people, suggesting a decline in status, however today doing well and ready to participate in PT evaluation and treatment. Subjective:I would like to use the commode, I wish I could be more independent with this , at home I have an extension wand to help. Objective: General Observation: IV right UE Mental Status: A+Ox4 Pain:none, numbness left LE from knee down Vital Signs: monitored by nursing, O2 96 HR 70 BP 132/64 Strength: Right/Left Lower Extremity: R/L hip flex 4/5, R/L knee ext 4/5, R/L ankle DF 4/5 ROM: UE and LE WFL Sensation: Describes hyposensitivity, numbness on LLE from her lateral knee to her ankle Bed Mobility/Transfers: sit to stand CGA chair to FWRW, increased v/c for hand placement stand to sit CGA FWRW to chair, to commode , v/c for hand placement Gait: Ambulates and maneuvers around the room FWRW with CGA and v/c for walker placement, left LE placement, we included short distance for backing up and being able to manage in a tight space. Ambulate from chair to commode to doorway and back to chair including total 15' and small steps sideways and backward to position herself with v/c. She has ambulated further distances recently however due to fatigue using commode as well as increased effort needed for managing in tight space as well repeated sit to stand we will include the longer distance hopefully later today. Balance: Static Sitting: Good Dynamic Sitting: Good Static Standing: Fair Dynamic Standing: poor- able to march in place with use of RW for UE support , has concern of placement of left LE Special Tests: Mobility Limitations Standardized Measure [facility] AM-PAC 6 clicks Basic Mobility Inpatient Short Form: Raw Score: 15 CMS Score: 57.7% Informed Consent/Education: Patient instructed in purpose of PT consult and plan of care. Assessment: Pt has been progressing well while in inpatient services, she has been transitioned to swing for further antibiotic treatment. STR when medically appropriate which she is hoping for soon. She demonstrates weaknesses in her bilat LEs which is likely the main cause for her lack of mobility. Exercises were reviewed with her that she had been doing at rehab which she seems compliant with continuing. She will continue to benefit from PT while in the hospital to progress her functionally as tolerated. Patient is assessed as a [x] Low 65121 complexity based on the following: History: Low Examination: Low Presentation: Low Decision Making: Low Goals: Goals X1 week 1. Sit-Stand independently 2. Stand-Sit independently 3. Bed-Chair independently 4. Chair-Bed independently 5. Gait - ambulates 50 ft w/RW w/SBA Treatment: sit to stand chair to RW with CTG and v/c 6x standing with support of RW marching in place 2x6 reps ambulation with FWRW in room and maneuvering in a tight space Plan of Care/Treatment Plan: 1-2x/day, 7 days/week x 1 week. Plan of care has been reviewed with the FACILITIES MAINTENANCE MANAGER providing the service under Physical Therapy direction. Initiate Physical Therapy intervention for strengthening, bed mobility, transfers, gait, stairs, balance training, use of assistive device. DISCHARGE RECOMMENDATIONS: [x] SNF vs HHPT based on progress and when medically ready TREATMENT CODE/TIME: Shorty Adamsarleen ([id number]) x1, [id number] 9:00-9:20
[2025-04-25] MEDS: Diclofenac 1% Gel 100 GM TUBE TP ×4 (08:59→20:21)
[2025-04-25 09:01] VITALS: BP 132/64; PULSE 72; RESP 17; TEMP 36.9; O2SAT 96
[2025-04-25] MEDS: Cetirizine 10 MG TAB PO (14:06)
[2025-04-26] MEDS: ceFAZolin 2 GM/50 ML BAG IVPB ×3 (02:54→17:29)
[2025-04-26 07:46] VITALS: BP 127/55; PULSE 69; RESP 17; TEMP 36.6; O2SAT 97
[2025-04-26] MEDS: Dexamethasone 1 MG TAB PO (07:57)
[2025-04-26] MEDS: Acyclovir 400 MG TAB PO ×3 (07:57→20:50)
[2025-04-26] MEDS: Fluconazole 100 MG TAB PO (07:58)
[2025-04-26] MEDS: Lacosamide 100 MG TAB 200 MG PO ×2 (07:58→20:50)
[2025-04-26] MEDS: levETIRAcetam 500 MG TAB PO ×2 (07:58→20:50)
[2025-04-26] MEDS: Cetirizine 10 MG TAB PO (07:58)
[2025-04-26] MEDS: Apixaban 5 MG TAB PO ×2 (07:58→20:50)
[2025-04-26] MEDS: Magnesium Gluconate 500 MG TAB 1000 MG PO (07:59)
[2025-04-26] MEDS: Normal Saline Flush 10 ML SYR IVP ×4 (07:59→22:24)
[2025-04-26] MEDS: Pantoprazole 40 MG TABCR PO (07:59)
[2025-04-26] MEDS: Diclofenac 1% Gel 100 GM TUBE TP ×4 (08:01→22:23)
--- NOTE | 2025-04-26 09:06 | PTTR_ITS ---
PT Notes Visit Reasons: Staff Aureus Bacteremia with Sepsis Resolved Date: 04/26/2025 PRECAUTIONS: epilepsy, standard, fall SUBJECTIVE: Pt in recliner when approached for therapy this morning, pt very alert today, agrees to participating with therapy intervention this morning. OBJECTIVE: PAIN: Left shoulder pain 10/31 VITALS: Monitored by nursing Therapeutic Activities 69962: Direct one-on-one instruction in dynamic activities to improve functional performance. BED MOBILITY/TRANSFERS Rolling L/R: Supervision Supine-sit: Supervision Sit-supine: Supervision Sit-stand: CGA initially/ SBA consecutive Stand-sit: CGA initially/ SBA consecutive Bed-Chair: CGA Chair-bed: CGA Provided skilled cues and instruction on performance and technique throughout. Gait Training 00677: Direct one-on-one instruction and skilled instruction in: Employing an assistive device Modified weight-bearing status Movement sequencing Turning and movement with proper form Provided verbal cues for equipment management and technique Provided instruction in gait pattern Patient education regarding pacing and breathing techniques to maximize activity tolerance GAIT Assistive Device: FWW Weight bearing: FWB Assist: [facility] Distance: 15', 10', 5' (1st session), 15', 15' (2nd session) Deviation: Slow robel, WBOS stoop forward posture, increased BUE loading Therapeutic Exercises 01686: Direct one-on-one instruction in therapeutic exercises to develop strength, endurance, range of motion and flexibility. Exercises Access Code: [email or web address] URL: [email or web address] Date: 04/26/2025 Prepared by: Adan Merlos Exercises - Seated Active Straight-Leg Raise - 1 x daily - 7 x weekly - 1 sets - 10 reps - Seated Single Knee to Chest - 1 x daily - 7 x weekly - 1 sets - 10 reps - Seated Hip Abduction - 1 x daily - 7 x weekly - 1 sets - 10 reps - Seated Gluteal Sets - 1 x daily - 7 x weekly - 1 sets - 10 reps Performed: Sit to stand [id number] with cues for hand placement to reach behind for safety. Seated SLR [id number] Seated knee to chest [id number] Seated clamshells [id number] Seated gluteal sets [id number] Seated ankle pumps [id number] Provided skilled instruction in proper exercise performance Provided skilled manual cues to facilitate proper muscle recruitment and/or form: ASSESSMENT: Pt much more alert and interactive today, pt able to participate with sit to stand with requiring decreased level of assist the more pt repeats activity. turns incorporated with gait training with pt training inside her room using commode for seated rest breaks. on second session Pt able to complete similar activity as first session but only required shorter rest break in between activity. PLAN: Continue with balance training, global strengthening and general conditioning for improved safety, mobility and activity tolerance until pt is ready for DC. TREATMENT CODE/TIME: 1st session [id number], [id number], 30mins (8:30-9:00am), 2nd session [id number], [id number] 25mins (10:40-11:05am)
[2025-04-26] MEDS: Acetaminophen 500 MG TAB 1000 MG PO (09:32)
--- NOTE | 2025-04-26 15:33 | CMPROGNOTE_ITS ---
Date of service: 04/26/25 Time of Service: 15:38 Care Management Progress Note Progress Note Text Progress Note Text: ’s antibiotic course is scheduled to end on 04/30/25, with an anticipated discharge date of 05/01/25. was originally admitted to [facility] from [facility]. Per Carina Villa from [facility] Admissions, a new referral and prior authorization are required for the facility to readmit the patient. The updated referral, including the antibiotic end date, was emailed to Carina today. reported that her belongings remain at [facility]. The facility confirmed that her items are still in her room. CM will continue to follow and communicate daily with [facility] regarding discharge planning and authorization status. Discharge Potential Discharge Needs: PCP F/U Appt Anticipated Barriers to Discharge: None Identified Patient/Family Education Needs: Review discharge instructions, discuss Ask Me Three Transportation: [facility] Transportation: Wheel chair van Plan: Anticipate that will return to [facility] once she is medically stable. is on SWB 1 for IV antibiotics, end date 04/30. Per PT, she will likely require SNF to continue her rehab. She will f/u with the facility provider and continue per her plan of care. She will need to a new [facility] appointment (was for 04/21). She will transport via [facility] wheelchair van. CM will continue to follow and update the plan as needed. Social Determinants of Health Screening Will the Patient Participate in the Screening?: Unable to obtain
[2025-04-27] MEDS: ceFAZolin 2 GM/50 ML BAG IVPB ×3 (01:56→17:07)
[2025-04-27 08:16] VITALS: BP 150/70; PULSE 65; RESP 16; TEMP 36.6; O2SAT 98
[2025-04-27] MEDS: Normal Saline Flush 10 ML SYR IVP ×3 (09:19→21:04)
[2025-04-27] MEDS: Magnesium Gluconate 500 MG TAB 1000 MG PO (09:20)
[2025-04-27] MEDS: Fluconazole 100 MG TAB PO (09:20)
[2025-04-27] MEDS: Apixaban 5 MG TAB PO ×2 (09:20→21:03)
[2025-04-27] MEDS: glipiZIDE 5 MG TAB 2.5 MG PO (09:20)
[2025-04-27] MEDS: Lacosamide 100 MG TAB 200 MG PO ×2 (09:20→21:03)
[2025-04-27] MEDS: Acyclovir 400 MG TAB PO ×3 (09:20→21:03)
[2025-04-27] MEDS: Pantoprazole 40 MG TABCR PO (09:21)
[2025-04-27] MEDS: Cetirizine 10 MG TAB PO (09:21)
[2025-04-27] MEDS: levETIRAcetam 500 MG TAB PO ×2 (09:21→21:03)
[2025-04-27] MEDS: Dexamethasone 1 MG TAB PO (09:21)
--- NOTE | 2025-04-27 10:59 | PT.INTREAT ---
PT Notes Visit Reasons: Staff Aureus Bacteremia with Sepsis Resolved Physical Therapy Inpatient Treatment Note Date: 04/27/2025 PRECAUTIONS: Epilepsy-prone. Fall risk. Standard. SUBJECTIVE: Patient participated actively in today's session. Verbalized that she needs cueing as to the step by step as her brain no longer works as it used to be. Enjoyed last PT session very much working on sit<>stand. Mildly fatigued and appreciated seated rests after each walk. OBJECTIVE: PAIN: Verbalized some discomfort in B shoulders initially which subsided with use of lower bariatric walker VITALS: BP 119/67 mmHg, SaO2 95% on RA, HR 81 bpm Therapeutic Activities 60285: Direct one-on-one instruction in dynamic activities to improve functional performance. BED MOBILITY/TRANSFERS: Moderate cueing provided for use of B hands as needed for support, movement sequence, AD management, and posture to reduce fall risk and minimize pain report Stand-sit: stand by assist with FWW Bed-Chair: stand by assist with FWW Chair-bed: stand by assist with FWW GAIT: Direct one-on-one instruction and skilled instruction in employing an assistive device and movement sequencing Assistive Device: FWW Weight bearing: FWB Assist: CGA Distance: 25 feet + 25 feet + 50 feet Deviation: Wheelchair follow needed. Slow robel, WBOS stoop forward posture, increased BUE loading ASSESSMENT: Patient demonstrated increased quality of limb advancement and more upright posture with less report of B shoulder discomfort. Patient was able to cover more distance with walking with less report of discomfort in B shoulders with trunk more upright. Patient was given enough time for seated rests to minimize breathlessness. Required moderate verbal and tactile cueing for movement sequence for safety and task completion. PLAN: Continue with balance training, global strengthening and general conditioning for improved safety, mobility and activity tolerance until pt is ready for DC. TREATMENT CODE/TIME: 52970 x 41 minutes for 3 units (10:59-11:40).
--- NOTE | 2025-04-27 15:48 | PHA.REVIEW2 ---
Pharmacy Admission Review Admission Clinical Review Admission Pharmacy Review: spider venom Allergy (Mild, Verified 10/08/24 09:04) swelling [place] nut Allergy (Verified 10/08/24 09:04) Unknown house dust Allergy (Verified 10/08/24 09:04) Unknown Penicillins Allergy (Verified 10/08/24 09:04) Unknown sulfamethoxazole (From Bactrim) Adverse Reaction (Intermediate, Verified 04/15/25 10:10) Other (See Comment) trimethoprim (From Bactrim) Adverse Reaction (Intermediate, Verified 04/15/25 10:10) Other (See Comment) Resuscitation Status Full Code Height 5 ft 3 in Weight 112.899 kg Pharmacy Admission Review Renal Dosing Medications needing adjustments: Reviewed (CrCl 66.01 mL/min) List of meds needing interventions: Current medications are okay Anticoagulation Anticoagulation: Hgb 11.1 g/dL (11.2-15.7) L 04/24/25 06:07 Hct 35.0 % (36.0-46.0) L 04/24/25 06:07 Plt Count 253 10^3/uL (130-400) 04/24/25 06:07 DVT Prophylaxis: Reviewed Medications: Apixaban (5mg BID) Relevant Labs Relevant Labs: C-Reactive Protein 3.23 mg/dL (<or=0.5) H 04/24/25 06:07 Electrolytes, C-Reactive P, ESR: Reviewed (No new labs for today) DM Control DM Control: Reviewed Insulin Dosing, Diabetic Medication: Has order for glipizide 2.5mg daily, had order for SS insulin prior to transition to swing bed but looks like order was discontinued by provider. No fingerstick glucose levels taken today, glucose was 205 yesterday at 1127. Cardiac Review BP, HR, EF%: Reviewed (BP 150/70, HR WNL) QTc Review QTc: Reviewed (473 from 04/15/25) IV to PO Switch IV Medications: Reviewed (cefazolin) Home Meds Home Med List reviewed: Reviewed Relevent Home Meds Not ordered & why?: bisacodyl (PRN), vitamin D3, vitamin B12, losartan, multivitamin, fish oil, omeprazole (has order for pantoprazole) Current Meds Current Medication Order Review: Reviewed Pharmacy Antibiotic Review Relevant Labs: WBC 11.63 10^3/uL (4.4-10.8) H 04/24/25 06:07 Temperature 36.6 C Pharmacy Antibiotic Activity: Reviewed, no change Comments: Patient is on cefazolin, being treated through 04/30 per H+P, for bacteremia with sepsis. Status was changed to swing bed in order to complete IV antibiotic treatment.
[2025-04-27 19:00] VITALS: BP 144/66; PULSE 72; RESP 18; TEMP 36.6; O2SAT 97
[2025-04-28] MEDS: ceFAZolin 2 GM/50 ML BAG IVPB ×3 (02:26→17:52)
[2025-04-28] MEDS: glipiZIDE 5 MG TAB 2.5 MG PO (07:36)
[2025-04-28] MEDS: Pantoprazole 40 MG TABCR PO (07:36)
[2025-04-28] MEDS: Fluconazole 100 MG TAB PO (08:39)
[2025-04-28] MEDS: Apixaban 5 MG TAB PO ×2 (08:39→20:00)
[2025-04-28] MEDS: Cetirizine 10 MG TAB PO (08:40)
[2025-04-28] MEDS: Dexamethasone 1 MG TAB PO (08:40)
[2025-04-28] MEDS: Magnesium Gluconate 500 MG TAB 1000 MG PO (08:40)
[2025-04-28] MEDS: Lacosamide 100 MG TAB 200 MG PO ×2 (08:41→19:59)
[2025-04-28] MEDS: Normal Saline Flush 10 ML SYR IVP ×2 (08:41→20:01)
[2025-04-28] MEDS: levETIRAcetam 500 MG TAB PO ×2 (08:41→20:00)
[2025-04-28] MEDS: Acyclovir 400 MG TAB PO ×3 (08:44→19:59)
[2025-04-28] MEDS: Diclofenac 1% Gel 100 GM TUBE TP ×2 (08:45→13:47)
[2025-04-28 09:39] VITALS: BP 144/69; PULSE 72; RESP 16; TEMP 36.5; O2SAT 98
--- NOTE | 2025-04-28 11:16 | CMPROGNOTE_ITS ---
Date of service: 04/28/25 Time of Service: 17:21 Care Management Progress Note Progress Note Text Progress Note Text: Per Carina Villa at [facility], the paperwork for ’s authorization to return to their facility has been initiated. Per provider and pharmacist, the patient’s antibiotic course will be completed on 04/30/25 prior to 1400, allowing for potential transfer to [facility] before that time. CM notified Carina Villa and branch rental manager, Sindy Washington, via email to collaborate in coordinating this transition of care. [facility] reported that they are unable to accept until 05/03. CM informed the care team of this update. The provider has been made aware of and is agreeable to the revised discharge plan. CM notified [facility] that the provider is in agreement. CM will continue to follow for coordination and support of discharge planning. Discharge Potential Discharge Needs: PCP F/U Appt Anticipated Barriers to Discharge: None Identified Patient/Family Education Needs: Review discharge instructions, discuss Ask Me Three Transportation: RCT RCT Transportation: Wheel chair van Plan: Anticipate that will return to [facility] once she is medically stable. is on SWB 1 for IV antibiotics, end date 04/30. Per PT, she will likely require SNF to continue her rehab. She will f/u with the facility provider and continue per her plan of care. She will need to a new [facility] appointment (was for 04/21). She will transport via [facility] wheelchair van. CM will continue to follow and update the plan as needed. Social Determinants of Health Screening Will the Patient Participate in the Screening?: Unable to obtain
--- NOTE | 2025-04-28 11:41 | PT.INTREAT ---
PT Notes Visit Reasons: Staff Aureus Bacteremia with Sepsis Resolved Physical Therapy Inpatient Treatment Note Date: 04/28/2025 PRECAUTIONS: Epilepsy-prone. Fall risk. Standard. SUBJECTIVE: Patient verbalized concern about nursing staff who transferred her at [facility] and did not use a walker and a belt for the transfer, she was worried that she was going to fall and take the LNAs with her. She managed to go back to bed with hand-held assist. She is more motivated today to participate. She has been doing her exercises whle looking at the paper she was given. OBJECTIVE: PAIN: Verbalized some discomfort in B shoulders initially which subsided with use of lower bariatric walker VITALS: BP 119/67 mmHg, SaO2 95% on RA, HR 81 bpm Therapeutic Activities 69885: Direct one-on-one instruction in dynamic activities to improve functional performance. BED MOBILITY/TRANSFERS: Moderate cueing provided for use of B hands as needed for support, movement sequence, AD management, and posture to reduce fall risk and minimize pain report Stand-sit: stand by assist with FWW Bed-Chair: stand by assist with FWW Chair-bed: stand by assist with FWW GAIT: Direct one-on-one instruction and skilled instruction in employing an assistive device and movement sequencing Assistive Device: FWW Weight bearing: FWB Assist: CGA Distance: 30 feet + 30 feet + 60 feet Deviation: Wheelchair follow needed. Wendi improving. More erect posture with use of bariatric front-wheeled walker THERA EX: Guided patient with safe anc correct performance of seated exercises: Sit to stand [id number] with cues for hand placement to reach behind for safety. Seated SLR [id number] Seated knee to chest [id number] Seated clamshells [id number] Seated gluteal sets [id number] Seated ankle pumps [id number] ASSESSMENT: Patient has motor sequencing impairment and continues to require moderate cueing to inititae, continue, and complete tasks. She will require supervixiosn of another at all times for safety. Patient demonstrates increasing quality of limb advancement and more upright posture with less report of B shoulder discomfort. Patient was able to cover more distance with walking with less report of discomfort in B shoulders with trunk more upright. Patient was given enough time for seated rests to minimize breathlessness. Required moderate verbal and tactile cueing for movement sequence for safety and task completion. PLAN: Continue with balance training, global strengthening and general conditioning for improved safety, mobility and activity tolerance until pt is ready for DC. TREATMENT CODE/TIME: 60616 x 25 minutes for 2 units, 75562 16 minutes for 1 unit (11:41-12:22).
[2025-04-29] MEDS: ceFAZolin 2 GM/50 ML BAG IVPB ×3 (02:03→18:29)
[2025-04-29 08:00] VITALS: BP 123/75; PULSE 55; RESP 18; TEMP 36; O2SAT 95
[2025-04-29] MEDS: Pantoprazole 40 MG TABCR PO (08:08)
[2025-04-29] MEDS: Magnesium Gluconate 500 MG TAB 1000 MG PO (08:08)
[2025-04-29] MEDS: Acyclovir 400 MG TAB PO ×3 (08:08→20:31)
[2025-04-29] MEDS: Fluconazole 100 MG TAB PO (08:08)
[2025-04-29] MEDS: glipiZIDE 5 MG TAB 2.5 MG PO (08:08)
[2025-04-29] MEDS: Cetirizine 10 MG TAB PO (08:08)
[2025-04-29] MEDS: levETIRAcetam 500 MG TAB PO ×2 (08:09→20:31)
[2025-04-29] MEDS: Normal Saline Flush 10 ML SYR IVP ×3 (08:09→20:33)
[2025-04-29] MEDS: Apixaban 5 MG TAB PO ×2 (08:09→20:31)
[2025-04-29] MEDS: Lacosamide 100 MG TAB 200 MG PO ×2 (08:09→20:32)
[2025-04-29] MEDS: Dexamethasone 1 MG TAB PO (08:09)
--- NOTE | 2025-04-29 09:42 | PT.INTREAT ---
PT Notes Visit Reasons: Staff Aureus Bacteremia with Sepsis Resolved Physical Therapy Inpatient Treatment Note Date: 04/29/2025 PRECAUTIONS: Epilepsy-prone. Fall risk. Standard. SUBJECTIVE: Pt reports that she was doing exercises in bed this morning. She states she did about 25 reps of all of the exercises. She reported bilateral shoulder pain that she thinks is from using the walker and using her arms to help push up to standing. Reported significant fatigue at the end of her walk. She thinks she may have over done it with her exercises in bed this morning. OBJECTIVE: Therapeutic Activities 27623: Direct one-on-one instruction in dynamic activities to improve functional performance. BED MOBILITY/TRANSFERS: Sit to stand: with SBA Stand to sit CG of 1 with verbal cues for hand placement and for positioning her self correctly in front of the chair. GAIT: Direct one-on-one instruction and skilled instruction in employing an assistive device and movement sequencing Assistive Device: FWW Weight bearing: FWB Assist: CGA Distance: 40 ft x 1 with CG of 1 and bariatric front wheeled rolling walker THERA EX: Seated: Shoulder flexion x 10 Bicep curls x 10 Marching x 10 FAQ x 10 Heel raises x 10 Toe raises x 10 Pt education: encouraged pt to perform 10 reps of her exercises instead of 25 ASSESSMENT: Pt did well with erect posture with ambulation. She was able to initiate the turn for sitting in the chair but then had significant difficulty back up to the chair. Pt fatigued very quickly at the end of her walk with a notable decrease in step length. PLAN: Continue with balance training, global strengthening and general conditioning for improved safety, mobility and activity tolerance until pt is ready for DC. TREATMENT CODE/TIME: 36730 x 15 minutes for 1 units, 83271 10 minutes for 1 unit . (9:13-9:38)
[2025-04-29] MEDS: Acetaminophen 500 MG TAB 1000 MG PO (10:02)
[2025-04-29] MEDS: Diclofenac 1% Gel 100 GM TUBE TP ×2 (15:21→20:32)
[2025-04-30] MEDS: ceFAZolin 2 GM/50 ML BAG IVPB ×3 (03:11→17:17)
[2025-04-30] MEDS: Acetaminophen 500 MG TAB 1000 MG PO ×2 (03:31→16:42)
[2025-04-30 07:45] VITALS: BP 135/60; PULSE 53; RESP 16; TEMP 36.7; O2SAT 96
[2025-04-30] MEDS: Magnesium Gluconate 500 MG TAB 1000 MG PO (09:38)
[2025-04-30] MEDS: glipiZIDE 5 MG TAB 2.5 MG PO (09:39)
[2025-04-30] MEDS: Acyclovir 400 MG TAB PO ×3 (09:40→20:25)
[2025-04-30] MEDS: Apixaban 5 MG TAB PO ×2 (09:40→20:25)
[2025-04-30] MEDS: Fluconazole 100 MG TAB PO (09:40)
[2025-04-30] MEDS: Dexamethasone 1 MG TAB PO (09:40)
[2025-04-30] MEDS: Cetirizine 10 MG TAB PO (09:40)
[2025-04-30] MEDS: Lacosamide 100 MG TAB 200 MG PO ×2 (09:40→20:25)
[2025-04-30] MEDS: Diclofenac 1% Gel 100 GM TUBE TP ×4 (09:41→20:26)
[2025-04-30] MEDS: Normal Saline Flush 10 ML SYR IVP ×2 (09:41→20:26)
[2025-04-30] MEDS: Pantoprazole 40 MG TABCR PO (09:41)
[2025-04-30] MEDS: levETIRAcetam 500 MG TAB PO ×2 (09:54→20:25)
--- NOTE | 2025-04-30 11:21 | PT.INTREAT ---
Date of service: 04/30/25 PT Notes Visit Reasons: Staff Aureus Bacteremia with Sepsis Resolved Physical Therapy Inpatient Treatment Note Date: 04/30/2025 PRECAUTIONS: Epilepsy-prone. Fall risk. Standard. SUBJECTIVE: Pt reports that she still thinks she overdid it yesterday doing her exercises prior to her PT session. OBJECTIVE: Therapeutic Activities 20915: Direct one-on-one instruction in dynamic activities to improve functional performance. BED MOBILITY/TRANSFERS: Sit to stand: with SBA all trials Stand to sit CG of 1 with verbal cues for hand placement and for positioning her self correctly in front of the chair. GAIT: Direct one-on-one instruction and skilled instruction in employing an assistive device and movement sequencing Assistive Device: FWW and w/c follow Weight bearing: FWB Assist: CGA Distance: 45 ft x 2 with CG of 1 and bariatric front wheeled rolling walker THERA EX:BLE Seated: Marching x 10 with 2# cuff weight LAQ x 10 with 2# cuff weight Heel raises x 10 Toe raises x 10 Pt education: to perform 10 reps of her exercises instead of 25 ASSESSMENT: Pt did well with erect posture with ambulation patient noted to utilize Y ligaments at hips for upright stability and static standing.. She continues to have significant difficulty back up to the chair. Patient utilizes bilateral upper extremity support to advance bilateral lower extremity due to impaired hip extension strength. Patient reports upper extremity fatigue with ambulation PLAN: Continue with balance training, global strengthening and general conditioning for improved safety, mobility and activity tolerance until pt is ready for DC. TREATMENT CODE/TIME: 59087 ,39774/ [id number]
--- NOTE | 2025-04-30 12:43 | W.PM.PROGNOT ---
Date of Service Date of service: 04/30/25 Time of Service: 12:43 Assessment and Plan Assessment and plan (1) Staphylococcus aureus bacteremia with sepsis: Status: Resolved Assessment and plan: Presented with severe sepsis, which has resolved. MSSA, source possibly portacath, possibly leg wound Continue cefazolin to complete 2 week course. Cefazolin 2 mg IV q8h for 2 weeks from date of negative cultures. Echocardiogram negative 04/19 Discussed with [facility] ID 04/20, port removed, now has midline. Did not recommend CATALINA. Completed abx therapy on 04/30/[address] [facility] on Thursday 05/03 (2) Cerebral venous thrombosis: Assessment and plan: has been anticoagulated on apixaban this was placed on hold in anticipation of port removal, was on heparin ggt, now back on apixaban (3) Acute UTI: Status: Resolved Assessment and plan: E coli sensitive to cephalosporins will complete course with cefazolin (4) Acute kidney injury superimposed on CKD: Status: Resolved Assessment and plan: normalized. avoid nephrotoxic drugs and renal dose as needed. lorasartan was on hold, now resumed. 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: Status: Acute Assessment and plan: Presenting with most likely breakthrough seizure in the setting of severe sepsis UTI and staphylococcus aureus bacteremia Continue home dose lacosamide and Keppra- IV load given in ED- on oral home dose Keppra level therapeutic at 13.7 (6) Diabetes: Status: Chronic Assessment and plan: Continue ongoing AC &HS fingersticks A1C 7.0 seems to be around goal SSI coverage Resume home glipide at discharge- hold while inpatient (7) Hypertension: Status: Chronic Assessment and plan: blood pressure had been poorly controlled, now improved resumed Losartan 25 mg daily continue to monitor (8) GERD (gastroesophageal reflux disease): Status: Chronic Assessment and plan: On PPI (9) COPD (chronic obstructive pulmonary disease): Status: Chronic Assessment and plan: No exacerbation Continue home dose regimen (10) Meningioma: Status: Acute Assessment and plan: History of multiple cranial surgery due to meningioma most likely the cause of the seizures now on antiepileptics was on Avastin -held and will not be able to get her infusion on 04/[address] call placed [address] oncologist Dr Scotty Espinal [phone], discussed with Dr Irizarry's MANAGER ANIMAL, port removed, patient to see Dr Irizarry after discharge ANTONIO 04/22 which she relates to noise from contstruction. Tried APAP, tramadol, ondansatron. Change rooms. Could treat with dexamethasone if not imrpoving. (11) Hypomagnesemia: Status: Resolved Assessment and plan: supplemented and normalized Subjective Subjective Interval history since last seen: Patient states that she is doing well and understands the plan to discontinue abx today and [facility]. Exam Narrative Exam Narrative: well appearing female sitting up in the chair in no acute distress, AOx4, heart RRR, lungs CTAB, abdomen soft, non-tender, non-distended Objective Last Vital Signs Temp 98.1 F 04/30/25 07:45 Pulse 53 L 04/30/25 07:45 Resp 16 04/30/25 07:45 BP 135/60 04/30/25 07:45 Pulse Ox 96 04/30/25 07:45 Time Spent with Patient Time Spent with Patient: >50 minutes Time was spent: preparing to see the patient(eg.review tests), obtaining and/or reviewing separately otained hiistory, ordering medications,tests, procedures, referring, communicating with other health insurance healthcare representative, indepentently interpreting results, counseling the patient and care coordination
--- NOTE | 2025-04-30 17:33 | CMPROGNOTE_ITS ---
Date of service: 04/30/25 Time of Service: 17:46 Care Management Progress Note Progress Note Text Progress Note Text: was sitting up in her chair when CM met with . reported that she has a new Avastin appointment with Dr. Irizarry at [facility] [place] 05, 2025, and is requested to arrive at 11:30 a.m. (contact: [phone]). CM notified [facility] staff, Sindy Washington and Carina Villa, via email to allow adequate time for coordination of transportation. inquired whether she will be discharged with a midline for her Avastin infusion, as her port-a-cath has been removed. CM will confirm this with the provider and update the rehabilitation facility accordingly. CM will continue to follow. Discharge Potential Discharge Needs: PCP F/U Appt and Other ([facility] [place]c 05/05/25 11:30) Anticipated Barriers to Discharge: None Identified Patient/Family Education Needs: Review discharge instructions, discuss [facility] Transportation: [facility] Transportation: Wheel chair van Plan: Anticipate that will return to [facility] once she is medical ly stable. is on SWB 1 for IV antibiotics, end date 04/30; [facility] cannot accomidate until 05/03. Per PT, she will require SNF to continue her rehab. She will f/u with the facility provider and continue per her plan of care. New [facility] Avastin appointment 05/05 at 11:30; Sindy Washington and Carina Villa notified. She will transport via [facility] wheelchair van back to [facility]. CM will continue to follow and update the plan as needed. Social Determinants of Health Screening Will the Patient Participate in the Screening?: Unable to obtain
[2025-05-01] MEDS: ceFAZolin 2 GM/50 ML BAG IVPB (02:45)
[2025-05-01 05:30] VITALS: BP 147/77; PULSE 55; RESP 16; TEMP 36.2; O2SAT 97
[2025-05-01 07:47] VITALS: BP 148/66
[2025-05-01] MEDS: Normal Saline Flush 10 ML SYR IVP (07:49)
[2025-05-01] MEDS: levETIRAcetam 500 MG TAB PO ×2 (07:49→21:43)
[2025-05-01] MEDS: Lacosamide 100 MG TAB 200 MG PO ×2 (07:50→21:44)
[2025-05-01] MEDS: Pantoprazole 40 MG TABCR PO (07:50)
[2025-05-01] MEDS: Losartan 25 MG TAB PO (07:50)
[2025-05-01] MEDS: Magnesium Gluconate 500 MG TAB 1000 MG PO (07:50)
[2025-05-01] MEDS: glipiZIDE 5 MG TAB 2.5 MG PO (07:50)
[2025-05-01] MEDS: Fluconazole 100 MG TAB PO (07:51)
[2025-05-01] MEDS: Dexamethasone 1 MG TAB PO (07:51)
[2025-05-01] MEDS: Acyclovir 400 MG TAB PO ×3 (07:51→21:42)
[2025-05-01] MEDS: Cetirizine 10 MG TAB PO (07:51)
[2025-05-01] MEDS: Apixaban 5 MG TAB PO ×2 (07:51→21:43)
[2025-05-01] MEDS: Diclofenac 1% Gel 100 GM TUBE TP ×4 (07:52→22:31)
--- NOTE | 2025-05-01 07:59 | RESPIRATORY ---
Spoke with patient about RAISSA diagnosis and she advised she had a sleep study and a CPAP machine but couldn't tolerate it so she opted to have a portion of her upper soft palate removed and hasn't had issues since.
[2025-05-01] MEDS: Acetaminophen 500 MG TAB 1000 MG PO ×2 (10:01→21:42)
[2025-05-01] MEDS: Bacitracin 1 PACKET (14:42)
[2025-05-01] MEDS: Miconazole 2% Topical Powder 85 GM BTL TP (15:48)
--- NOTE | 2025-05-01 15:56 | PT.INTREAT ---
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 Fall risk. Standard. SUBJECTIVE: [place] more stable with the front-wheeled walker. Unsure of whether she is to have more PT while here as she was not sure how much more days she had left, does not want to pay too much out of pocket. Nakul Jennings clarified that patient has enough. Patient understands that the remaining 2-3 days she is here and getting PT would not be for naught as she had been demonstrating improvement. Happy that Nakul Jennings clarified that te prior auth for return to SNF has been approved and that she may go back this Saturday. Pushed herself more for this session and was happy about how she did. OBJECTIVE: PAIN: None reported VITALS: Closely moniored by nursing staff BED MOBILITY/TRANSFERS: Direct one-on-one instruction and minimal cueing for safety while doing dynamic activities to improve functional performance. Moderate cueing provided for use of B hands as needed for support, movement sequence, AD management, and posture to reduce fall risk and minimize pain report Stand-sit: stand by assist with FWW Bed-Chair: stand by assist with FWW Chair-bed: stand by assist with FWW GAIT: Direct one-on-one instruction and skilled instruction in employing an assistive device and movement sequencing Assistive Device: FWW Weight bearing: FWB Assist: stand by assist Distance: 60 feet + 80 feet Deviation: Wheelchair follow needed. Wendi improving. More erect posture with use of bariatric front-wheeled walker. L foot no longer hit the L back walker leg. SOB after second longer trip subsided with seated rest. THERA EX: Guided patient with safe and correct performance of seated exercises: Sit<>stand with arms across chest x 1 with moderate assist Sit<.stand with use of B arms x 5 with contact guard assist Chair push ups x 10 with emphasis on gradual descent onto chair Seated marches 5sh x 10 ASSESSMENT: Patient demonstrated increased ability to tolerate longer ambulation distance with less SOB and less repotr of B shoulder discomfort compared to prior sessions. Increased ability for efficient eccentric control of B quads and abdominal during gradual descent onto chair during sit<.stand moevement transisitons. Required lesser cuing with movement sequencing with increased automaticity of movement--more able to back up onto chair and center herself prior to sitting down. Remaining impairments needing skilled services: weakness in B LE, weakness in core muscles, persistent but decreased movement sequencing and praxis, balance awareness PLAN: Continue with balance training, global strengthening and general conditioning for improved safety, mobility and activity tolerance until pt is ready for DC back to SNF . TREATMENT CODE/TIME: 41041 x 25 minutes for 2 units, 81099 x 21 minutes for 1 unit (15:56-16:42).
[2025-05-01] MEDS: traMADol 50 MG TAB PO (22:02)
[2025-05-02 05:37] VITALS: BP 132/52; PULSE 54; RESP 16; TEMP 36; O2SAT 95
[2025-05-02 08:00] VITALS: BP 146/66; PULSE 51; RESP 16; TEMP 36.8; O2SAT 96
[2025-05-02 08:57] VITALS: PULSE 66; O2SAT 96
[2025-05-02] MEDS: Diclofenac 1% Gel 100 GM TUBE TP ×3 (08:57→22:02)
[2025-05-02] MEDS: Magnesium Gluconate 500 MG TAB 1000 MG PO (08:58)
[2025-05-02] MEDS: glipiZIDE 5 MG TAB 2.5 MG PO (08:58)
[2025-05-02] MEDS: Pantoprazole 40 MG TABCR PO (08:58)
[2025-05-02] MEDS: Losartan 25 MG TAB PO (08:58)
[2025-05-02] MEDS: levETIRAcetam 500 MG TAB PO ×2 (08:58→21:58)
[2025-05-02] MEDS: Dexamethasone 1 MG TAB PO (08:58)
[2025-05-02] MEDS: Acyclovir 400 MG TAB PO ×3 (08:58→21:58)
[2025-05-02] MEDS: Cetirizine 10 MG TAB PO (08:58)
[2025-05-02] MEDS: Lacosamide 100 MG TAB 200 MG PO ×2 (08:58→21:58)
[2025-05-02] MEDS: Fluconazole 100 MG TAB PO (08:58)
[2025-05-02] MEDS: Apixaban 5 MG TAB PO ×2 (08:58→21:57)
--- NOTE | 2025-05-02 11:27 | PT.INPN ---
PT Notes Visit Reasons: Staff Aureus Bacteremia with Sepsis Resolved Inpatient Physical Therapy Swing Bed level I Progress Note Date: 05/02/2025 Dates of Service: through 05/02/2025 PRECAUTIONS: Epilepsy-prone/Seizure-prone, currently on Keppra. Fall risk. Standard. Patient Profile/Admitting Diagnosis: has receivedcontinued PT services under SB 1 level of care for functional mobility training, strengthening, and balance training. She presented to the ED on 04/15/25 from [facility] with increased confusion and generalized weakness. She has a past medical history significant for seizures (on oral Keppra and lacosamide), cerebral venous infarction, brain meningioma, PVD, PAD, diabetes, hypertension hyperlipidemia, GERD COPD CKD stage III. SUBJECTIVE: Dizzy today. Verbalized having given a new BP pill Losartan since yesterday afternoon and another one today, though that she may be maladjusting to it. She reported being dizzy and her head seemed to be floating. Nurse Ruy updated and is managing. Did not walk as far as she has been covering the past couple of days. OBJECTIVE: General Observation: Lab staff finishing off bllod draw with patient when PT came in. Patient was still in bed. PAIN: None reported VITALS: BP 121/65 mmHg, SaO2 96%, HR 61 bpm after short walk of 25 feet ROM: Right Upper Extremity: Shoulder Flexion allowed up to about 110 degrees. Shoulder abduction allowed about 90 degrees. Elbow flexion WFL. Wrist flexion WFL. Functional opening and closing of hand WFL. Left Upper Extremity: Shoulder Flexion allowed up to about 110 degrees. Shoulder abduction allowed about 90 degrees. Elbow flexion WFL. Wrist flexion WFL. Functional opening and closing of hand WFL. Right Lower Extremity: Hip flexion allowed up to 100 degrees. Hip abduction WFL. Knee flexion WFL. Ankle dorsiflexion to neutral only. Ankle plantarflexion WFL. Left Lower Extremity: Hip flexion allowed up to 100 degrees. Hip abduction WFL. Knee flexion WFL. Ankle dorsiflexion to neutral only. Ankle plantarflexion WFL. STRENGTH: Right Upper Extremity: Shoulder flexors 3-/5. Shoulder abductors 3-/5. Elbow flexors 4-/5. Elbow extensors 4-/5. Political Organizer strong. Left Upper Extremity: Shoulder flexors 3-/5. Shoulder abductors 3-/5. Elbow flexors 4-/5. Elbow extensors 4-/5. Political Organizer strong. Right Lower Extremity: Hip flexors 3-/5. Hip abductors 3-/5. Knee flexors 4-/5. Knee extensors4-/5. Ankle dorsiflexors 3-/5. Ankle plantarflexors 4-/5. Left Lower Extremity: Hip flexors 3-/5. Hip abductors 3-/5. Knee flexors 4-/5. Knee extensors4-/5. Ankle dorsiflexors 3-/5. Ankle plantarflexors 4-/5. SENSATION: Decreased sensation on lateral side of L leg to the ankle BED MOBILITY/TRANSFERS: Direct one-on-one instruction and minimal cueing for safety while doing dynamic activities to improve functional performance. Moderate cueing provided for use of B hands as needed for support, movement sequence, AD management, and posture to reduce fall risk and minimize pain report Sit to stand from edge of bed contact guard assist with FWW Stand-sit: stand by assist with FWW Bed-Chair: stand by assist with FWW Chair-bed: stand by assist with FWW GAIT: Direct one-on-one instruction and skilled instruction in employing an assistive device and movement sequencing Assistive Device: FWW Weight bearing: FWB Assist: contact guard assist Distance: 20 feet + 15 feet Deviation: Wheelchair follow needed. Wendi decreased. Wide GERI from bed to door with step-to gait pattern, L foot unable to step past R. Gait pattern improved going back from door to chair with verbal cueing. Complained of dizziness and difficulty concentrating with task which became a detriment to distance walked. BALANCE: Static Sitting: Good Dynamic Sitting: Good Static Standing: Fair Dynamic Standing: Poor Special Tests: Mobility Limitations Standardized Measure [facility] AM-PAC 6 clicks Basic Mobility Inpatient Short Form: Raw Score: 18 CMS Score: 47% Informed Consent/Education: Patient instructed in purpose of PT consult and plan of care. Agreeable to continue with established PT POC to achieve personal goals. ASSESSMENT: Patient has demonstrated steady gains with strength, balance, and mobility level until this afternoon whe patient complained of persistent dizziness due to recent addition of an antihypertesnive medication which has affected her ability to safely use her walker. The previous session, patient exhibited increased ability for efficient eccentric control of B quads and abdominal during gradual descent onto chair during sit<>stand movement transitions. In the past couple of days prior to today, she also required lesser cueing with movement sequencing with increased automaticity of movement--more able to back up onto chair and center herself prior to sitting down. Remaining impairments needing skilled services: weakness in B LE, weakness in core muscles, persistent but decreased movement sequencing and praxis, balance awareness Patient presents with clinical signs and symptoms consistent with current/admitting diagnoses that have resulted to mobility limitations, gait instability, generalized weakness, and overall ADL decline as demonstrated by the following impairment level findings: 1. Decreased strength to B UE/LE major muscle groups 2. Impaired sitting/standing balance 3. Impaired activity tolerance 4. Limitation of joint range of motion in B shoulders and B hips 5. Shortness of breath 6. Swelling in B LE Impairments are contributing to the following functional limitations: 1. Decline in bed mobility skills 2. Decline in transfer skills 3. Difficulty with ambulation without assistive device and physical assistance 4. Increased completion time for mobility ADL performance 5. Increased risk for falls 6. Difficulty with managing steps alone safely Patient is assessed as a 94881 moderate complexity based on the following: History: 69-year-old female with past medical history as indicated above Examination: Demonstrable impairment in strength, balance, and mobility level with underlying impairments and functional limitations as exhibited above as well as deficit score of 47% utilizing the [facility] Mobility Inpatient Short Form Presentation: Evolving Decision Makin moderate complexity Goals: Goals X1 week 1. Sit-Stand independently NOT MET, CONTINUE 2. Stand-Sit independently NOT MET, CONTINUE 3. Bed-Chair independently NOT MET, CONTINUE 4. Chair-Bed independently NOT MET, CONTINUE 5. Gait - ambulates 50 ft w/RW w/SBA NOT MET, CONTINUE Plan of Care/Treatment Plan: 1-2x/day, 7 days/week x 1 week. Plan of care has been reviewed with the SCHEDULE PLANNING MANAGER providing the service under Physical Therapy direction. Initiate Physical Therapy intervention for strengthening, bed mobility, transfers, gait, stairs, balance training, use of assistive device. DISCHARGE RECOMMENDATIONS: Return to SNF when medically cleared by hopsitalist TREATMENT CODE/TIME: 50545 x 40 minutes for 3 units (11:27-12:07). Thank you for the opportunity to participate in the care of this patient. Shannan Merlos PT, DPT, CLT [facility] [place], [place]
[2025-05-02] MEDS: Acetaminophen 500 MG TAB 1000 MG PO (21:57)
[2025-05-02] MEDS: traMADol 50 MG TAB PO (21:58)
[2025-05-03 08:15] VITALS: BP 134/70; PULSE 66; RESP 16; TEMP 36.1; O2SAT 96
--- NOTE | 2025-05-03 08:15 | W.PM.DS.N ---
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: Status: Acute (6) Diabetes: Status: Chronic (7) Hypertension: Status: Chronic (8) GERD (gastroesophageal reflux disease): Status: Chronic (9) COPD (chronic obstructive pulmonary disease): Status: Chronic (10) Meningioma: Status: Acute (11) Hypomagnesemia: Status: Resolved Discharge Plan Disposition Patient Disposition: Home Condition: Stable Discharge Details Reason For Visit: Staff Aureus Bacteremia with Sepsis Resolved Admit Date/Time: 04/23/25 22:41 Admit Provider: Joby Hayes Attending Provider: Joby Hayes Primary Care Provider: Francine Owen Hospital Course Hospital Course: Admitted to swing bed 1 status after admission 04/15 to 04/23/15 for MSSA bacteremia to get another week of cefazolin to complete 2 weeks from her negative blood culture on 04/16/25. She finished her antibiotic therapy. Her catheter tip removed prior to acute discharge on 04/21 only grew gram positive alex. She has follow up 05/[address] Espinal with [facility] to consider [employer] vascular access for her Avastin therapy. Her antiepileptics and low dose steroids were continued. She had no further seizure activity. She was treated with acyclovir for cold sore on her lip, which improved. He received ongoing wound care for a pre-existing ulcer on her right ankle. Wound culture from 04/17 grew staph lugdunensis which was sensitive to penicillins. She was evaluated by wound care nursing who recommended medihoney and mepilex dressings, which should be continued. She had symptoms of a vaginal yeast infection that improved after fluconazole. She was started on magnesium supplementation and cetirizine for itching, which was helpful. She had some lightheadedness in the mornings after taking her losartan, though her blood pressure was stable and she was able to work with physical therapy. The losartan can be taken before bed to minimize this. She was transferred back to [facility]. Home Meds and New Rx's Prescriptions: New cetirizine 10 mg Tablet 10 mg PO DAILY Qty: 30 0RF magnesium gluconate 27 mg magnesium (500 mg) Tablet 1,000 mg PO DAILY Qty: 0 0RF Continued Eliquis 5 mg tablet 5 mg PO BID cholecalciferol (vitamin D3) 50 mcg (2,000 unit) capsule 1,250 mcg PO QMONTH omega-3 fatty acids [Fish Oil Concentrate] 1,000 mg capsule 1,000 mg PO BID lacosamide 200 mg tablet 200 mg PO BID levetiracetam 750 mg tablet 500 mg PO BID Alive Women's Multivitamin 4.5 mg iron- 120 mcg-60 mcg tablet 1 tab PO DAILY cyanocobalamin (vitamin B-12) 1,000 mcg capsule 1,000 mcg PO DAILY dexamethasone 1 mg tablet 1 mg PO DAILY Patient Comments: TAKE 1 & 1/2 TABLETS BY MOUTH DAILY FOR 1 WEEK, THEN TAKE 1 TABLET DAILY THEREAFTER fluconazole 100 mg tablet 100 mg PO DAILY glipizide 2.5 mg tablet 2.5 mg PO DAILY omeprazole 40 mg capsule,delayed release(DR/EC) 40 mg PO DAILY Patient Comments: TAKE ONE CAPSULE BY MOUTH EVERY DAY gabapentin 300 mg capsule 300 mg PO BID diphenhydramine HCl [Benadryl] 25 mg capsule 25 mg PO Q12H PRN PRN bisacodyl 10 mg suppository 10 mg ID Q12H PRN PRN acetaminophen [Pain Relief (acetaminophen)] 325 mg tablet 650 mg PO Q6H PRN (Reason: pain) Changed losartan 25 mg tablet 25 mg PO HS Qty: 0 0RF Discharge Instructions Stand Alone Forms: Portal Information Activity:: Activity as Tolerated Equipment/Supplies:: No Equipment Needed Diet:: As Tolerated Discharge Orders Discharge Orders: Discharge Order (Routine); Ordered 05/03/25 Ordered By: Joby Hayes DS: Summary Time Spent with Patient providing and/or coordinating discharge services: Greater than 30 minutes Status at Discharge Functional status at discharge: uses cane/walker Overall status at discharge: patient is back to baseline Mental Status: mental status grossly normal Speech and Movement: speech and movement normal Mood: congruent mood Affect: normal affect Quality:SDOH Health Related Social Needs: Health related social needs lonely/isolated Health related social needs details says sometimes she has a little loneliness, but is not concerned Exam Narrative Exam Narrative: General: This is a pleasant woman in no distress, A&O x 3 CV: RRR no m/g/r. Chest: Right chest port removed, cite clean Resp: CTAB Abd: soft, NTND Neuro: awake, alert, no focal deficits EXT: 1.5 x 1cm ulcer, dressed with honey, no surrounding erythema right ankle. Dressed, mild serosanguinous drainage on mepilex. Psych Mental Status: mental status grossly normal Speech and Movement: speech and movement normal Mood: congruent mood Affect: normal affect DS: Data Vitals/I&O Vitals and I&O: Vital Signs Temperature 36.8 C 05/02/25 08:00 Temperature Source Temporal Artery Scan 05/02/25 08:00 Pulse 66 05/02/25 08:57 Respiratory Rate 16 05/02/25 08:00 Blood Pressure 146/66 H 05/02/25 08:00 Blood Pressure Mean 92 05/02/25 08:00 Pulse Oximetry 96 05/02/25 08:57 Oxygen Delivery Method Room Air 05/02/25 08:57 Oxygen Flow Rate 0 05/02/25 08:57 Pain Level 4 05/02/25 21:58 Comment Pt stated that her feet hurt. 05/02/25 05:37 Intake & Output 05/02/25 05/02/25 05/03/25 11:59 23:59 11:59 Intake Total 800 / 1680 880 / 1680 Output Total 475 / 1075 600 / 1075 450 / 450 Balance 325 / 605 280 / 605 -450 / -450 Intake: Oral 800 / 1680 880 / 1680 Output: Urine 475 / 1075 600 / 1075 450 / 450 Other: Urine Color Yellow Pale Pale Yellow Yellow Urine Appearance Clear Clear Clear Urine Odor Normal Normal None Comment Pt voids an immeasurable amount into the commode. pt voided and had a bowel movement on the commode, unable to measure amount of urine Stool Size Moderate Stool Characteristics Formed Data Completed and Pending Pending Labs at Discharge: 04/24/25 06:07 WBC 11.63 H RBC 3.84 L Hgb 11.1 L Hct 35.0 L MCV 91 MCH 28.9 MCHC 31.7 L RDW 14.6 Plt Count 253 MPV 10.3 Immature Gran % 1.2 Neutrophils % 59.2 Lymphocytes % 27.8 Monocytes % 8.9 Eosinophils % 2.1 Basophils % 0.8 Nucleated RBC % 0.0 Absolute Neutrophils 6.88 H Absolute Lymphocytes 3.23 Absolute Monocytes 1.04 H Absolute Eosinophils 0.24 Absolute Basophils 0.09 C-Reactive Protein 3.23 H Preliminary micro results at discharge 05/02/25 11:30 Blood Blood Culture - Pending 05/02/25 11:14 Blood Blood Culture - Pending [facility] All Active Problems (Updated 04/24/25 @ 00:01 by DONNIE JACOBO) Vaginal candidiasis (Acute) MSSA bacteremia (Acute) Bacteremia associated with intravascular line (Acute) Staphylococcus aureus bacteremia (Acute) Brain tumor (Acute) Sepsis (Acute) PAD (peripheral artery disease) (Acute) PVD (peripheral vascular disease) (Chronic) Dystrophia unguium (Acute) Onychomycosis (Acute) Ingrown toenail (Acute) 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) GERD (gastroesophageal reflux disease) (Chronic) Peripheral neuropathy (Acute) Diabetes (Chronic) Hypertension (Chronic) Vitamin B12 deficiency (non anemic) (Acute) Obstructive sleep apnea (Chronic) Meningioma (Acute) Hyperlipidemia (Acute) COPD (chronic obstructive pulmonary disease) (Chronic) Medical History Cerebral venous thrombosis Cerebral venous infarction, acute Spinal stenosis cervical Diverticular disease Surgical History Synovial cyst of sacral region resection S/P cholecystectomy S/P craniotomy 1999 and 2018 S/P cervical discectomy C5-6 decompression for cord impingement Family History Mother Stroke Father Diabetes Heart disease Social History Smoking/Tobacco Use Status: Current every day Tobacco Type: cigarettes Smoking risk assessment performed?: Yes Alcohol Intake: never Drug use: Never Substance use type: marijuana Household members: none Housing: house Number of Children: 2 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
[2025-05-03] MEDS: levETIRAcetam 500 MG TAB PO (08:32)
[2025-05-03] MEDS: Diclofenac 1% Gel 100 GM TUBE TP (08:32)
[2025-05-03] MEDS: Cetirizine 10 MG TAB PO (08:32)
[2025-05-03] MEDS: Apixaban 5 MG TAB PO (08:33)
[2025-05-03] MEDS: Losartan 25 MG TAB PO (08:33)
[2025-05-03] MEDS: Dexamethasone 1 MG TAB PO (08:33)
[2025-05-03] MEDS: Pantoprazole 40 MG TABCR PO (08:33)
[2025-05-03] MEDS: Acyclovir 400 MG TAB PO (08:33)
[2025-05-03] MEDS: Lacosamide 100 MG TAB 200 MG PO (08:33)
[2025-05-03] MEDS: glipiZIDE 5 MG TAB 2.5 MG PO (08:33)
[2025-05-03] MEDS: Magnesium Gluconate 500 MG TAB 1000 MG PO (08:33)
[2025-05-03] MEDS: Fluconazole 100 MG TAB PO (08:33)
--- NOTE | 2025-05-03 08:50 | CMDISCH_ITS ---
Date of service: 05/03/25 Time of Service: 12:13 LACE Index Scoring Tool Questions: Length of Stay (in days): 7 - 13 Was the patient admitted via the E.D.?: Yes Comorbidities: Diabetes w/o Complication, Chronic Pulmonary Disease and Any Tumor E.D. Visits: 1 Answers: Total Score: 14 Risk of Readmission: High Risk Care Management Discharge Plan Reason for Hospitalization: Staphylococcus aureus bacteremia with sepsis Discharge Plan: will return to [facility] today. She will f/u with the facility provider and continue per her plan of care. New [facility] Avastin appointment 05/05 at 11:30. Both Sindy Washington and Carina Villa have been notified and are aware that the patient does not have a port-a-cath or midline in place. The patient will be transported via RCT wheelchair van back to [facility] at 12:15, as recommended by Physical Therapy. The [facility] team has been kept informed throughout this admission via email, including details regarding discharge time and transportation arrangements. Patient/Family Education Needs: Review of discharge instructions, activity, limitations, and plan of care. Discuss ask Services Needed at Discharge: Half-Way Facility SDOH Health Related Social Needs: Health related social needs lonely/isolated Health related social needs details says sometimes she has a little loneliness, but is not concerned
== END 2025-05-03 12:06 | disposition home or self-care (01) | DRG 872 ==
PROVIDERS: Family Medicine; Admitting Provider Family Medicine; PCP Physician Assistant; Responsible Provider Family Medicine; Visit Provider Family Medicine
DX: A41.01 Sepsis due to Methicillin susceptible Staphylococcus aureus (principal); G40.109 Localization-related (focal) (partial) symptomatic epilepsy and epileptic syndromes with simple partial seizures, not intractable, without status epilepticus; N39.0 Urinary tract infection, site not specified; I67.6 Nonpyogenic thrombosis of intracranial venous system; L97.819 Non-pressure chronic ulcer of other part of right lower leg with unspecified severity; B37.31 Acute candidiasis of vulva and vagina; K21.9 Gastro-esophageal reflux disease without esophagitis; J44.9 Chronic obstructive pulmonary disease, unspecified; E11.22 Type 2 diabetes mellitus with diabetic chronic kidney disease; I12.9 Hypertensive chronic kidney disease with stage 1 through stage 4 chronic kidney disease, or unspecified chronic kidney disease; E83.42 Hypomagnesemia; D32.0 Benign neoplasm of cerebral meninges; Z79.899 Other long term (current) drug therapy; I73.9 Peripheral vascular disease, unspecified; N18.30 Chronic kidney disease, stage 3 unspecified; B96.20 Unspecified Escherichia coli [E. coli] as the cause of diseases classified elsewhere; Z79.84 Long term (current) use of oral hypoglycemic drugs; R45.89 Other symptoms and signs involving emotional state; E11.42 Type 2 diabetes mellitus with diabetic polyneuropathy; B35.1 Tinea unguium; E53.8 Deficiency of other specified B group vitamins; G47.33 Obstructive sleep apnea (adult) (pediatric); E78.5 Hyperlipidemia, unspecified; Z86.73 Personal history of transient ischemic attack (TIA), and cerebral infarction without residual deficits; M48.02 Spinal stenosis, cervical region; F17.210 Nicotine dependence, cigarettes, uncomplicated; R51.9 Headache, unspecified; B00.1 Herpesviral vesicular dermatitis
CPT/HCPCS: 00123; 36415; 87040; 97110; 97530; 99306; 99316; 85025; 86140; J0690; J8540

== ENCOUNTER 2025-05-09 20:02 | Outpatient (REF) | payer MEDICARE, SELFPAY ==
[2025-05-09 20:18] LABS: Glucose Negative (Negative)
== END 2025-05-09 20:03 | disposition home or self-care (01) ==
LOC: LBN 20:02
PROVIDERS: PCP Physician Assistant; Visit Provider Nurse Practitioner Adult Health
DX: R30.0 Dysuria (principal)
CPT/HCPCS: 81003; 84550; 87086

== ENCOUNTER 2025-05-25 12:34 | Observation (INO) | payer MEDICARE, SELFPAY ==
[2025-05-25] VITALS (50 sets, daily range): BP systolic 100–188; BP diastolic 41–87; PULSE 66–96; RESP 16–25; TEMP 36.5–38.8; O2SAT 91–100
--- NOTE | 2025-05-25 12:30 | RT.EKG_ITS ---
APPROVED REPORT Exam: Resting ECG Reason for Exam: ams Patient Location: E HR:92 bpm ECG Measurements Heart Rate [address] 158 P 42 QRSd 80 QRS 14 QT 343 T 1 QTc 423 Conclusion Sinus rhythm...normal P axis, V-rate 60- 99 No Occlusion ND
--- NOTE | 2025-05-25 12:45 | DI.CT_ITS ---
Exam(s) CT HEAD WO EXAM: CT HEAD WO CLINICAL HISTORY: confusion. TECHNIQUE: Imaging Protocol: Axial computed tomography images with coronal and sagittal reformatted images were created and reviewed COMPARISON: CT CT CTV HEAD/BRAIN from 04/12/[address] CTV HEAD/BRAIN from 07/28/[address] HEAD WO from 04/15/[address] HEAD WO from 04/19/2025 FINDINGS: Ventricles and Extra axial spaces: Normal in size and morphology for the patient's age. Hemorrhage: None. Cerebral parenchyma: Seen areas of encephalomalacia most marked in the right parietal lobe. There is no evidence of an acute territorial infarct or acute mass effect. There are old right basal gangliar lacunes present. There are areas of decreased attenuation in the white matter consistent with chronic microvascular ischemic disease. Midline shift: None. Brainstem/Cerebellum: Normal. Calvarium: There again seen multiple old craniotomy defects. Visualized Paranasal sinuses/Mastoids: There is mucosal thickening seen in the paranasal sinuses. Soft Tissues: Unremarkable. IMPRESSION: No acute intracranial process. RADIATION DOSE DELIVERED: 1,748.62mGy.cm Total DLP DATA REPOSITORY: All CT scans at this facility are submitted to the National Radiology Data Registry (NRDR) Dose Index Registry (DIR) with the [employer] ([employer]). RADIATION OPTIMIZATION: All CT scans at this facility use at least one of these dose optimization techniques: automated exposure control; mA and/or kV adjustment per patient size (includes targeted exams where dose is matched to clinical indication); or iterative reconstruction.
[2025-05-25 13:07] LABS: Abs Immature Grans 0.09 10^3/uL (0.0-0.06); HCT 37.7 % (36.0-46.0); HGB 12.0 g/dL (11.2-15.7); Immature Grans % 0.6 %; MCH 28.0 pg (27.0-33.0); MCHC 31.8 % (32.0-36.0); MCV 88 fL (80-95); MPV 10.0 fL (8.0-11.0); Platelet Count 211 10^3/uL (130-400); RBC 4.29 10^6/uL (3.93-5.22); RDW 14.9 % (11.7-14.6); RDW-SD 48.5 fL; WBC 15.03 10^3/uL (4.4-10.8)
[2025-05-25 13:27] LABS: Lipase 27 U/L (<53)
[2025-05-25 13:28] LABS: ALT 27 U/L (10-49); AST 23 U/L (<34); Albumin 4.0 g/dL (3.2-5.0); Alkaline Phosphatase 67 U/L (46-116); Anion Gap 7.5 mmol/L (3-11); BUN 14 mg/dL (9-23); Bilirubin, Total 0.50 mg/dL (0.2-1.2); CO2 30.5 mmol/L (20.0-31.0); Calcium 8.7 mg/dL (8.3-10.6); Chloride 101 mmol/L (98-107); Glucose 122 mg/dL (74-106); Potassium 3.7 mmol/L (3.5-5.1); Sodium 139 mmol/L (136-145); Total Protein 6.6 g/dL (5.7-8.2); Troponin I 30 ng/L (<35)
[2025-05-25] MEDS: ACETAMINOPHEN 500 MG/50 ML BAG 200 MG IVPB (13:29)
[2025-05-25] MEDS: Normal Saline 1,000 ML 500 ML IV (13:29)
[2025-05-25] MEDS: CEFEPIME 2 GM in Normal Saline 100 ML IVPB (13:29)
[2025-05-25 13:32] LABS: RBC Morphology Normal
--- NOTE | 2025-05-25 13:45 | DI.CT_ITS ---
Exam(s) CT CHEST/ABD/PEL W EXAM: CT CHEST/ABD/PEL W CLINICAL HISTORY: fever and cofusion, covid TECHNIQUE: Imaging Protocol: Axial computed tomography images with coronal and sagittal reformatted images were created and reviewed. Lung Computer Aided Detection (CAD) was utilized. CONTRAST MATERIAL: Intravenous: Omnipaque 350 contrast volume:100 mL Oral: No COMPARISON: CT CT CHEST/ABD/PEL W from 04/15/2025 FINDINGS: CHEST: Tracheobronchial tree: Patent where visualized. No evidence of bronchiectasis. Pulmonary parenchyma: No consolidation or dominant measurable mass. No architectural distortion. Visualized thyroid gland: Unremarkable. Mediastinum and Diana: No dominant adenopathy or fluid collection. The esophagus is unremarkable. Pleura: No effusion or pneumothorax. Heart: The heart is not dilated. Coronary artery calcifications are present. No pericardial effusion. Pulmonary arteries: Due to the timing of the bolus, there is suboptimal opacification of the peripheral pulmonary arteries. There is no large central pulmonary embolism. Aorta: Thoracic aorta non-dilated. Atherosclerotic calcification is present. Lymph nodes: Within normal limits. Soft tissues: Unremarkable. Bones:Within normal limits for the patient's age. ABDOMEN: Liver: There is fatty infiltration of the liver. No measurable mass. Portal, Superior Mesenteric, and Splenic Veins: Unremarkable. Gallbladder and Biliary Tract: Status post cholecystectomy. No significant biliary ductal dilatation. Pancreas: Normal density, no abnormal calcifications or inflammatory process. Spleen: Normal. Adrenals: No masses seen. Kidneys: Normal size, contour and axis. No radiodense stones or obstructive uropathy. There is a small cyst in the left kidney. No follow-up is recommended. Abdominal Aorta: Abdominal portion non-dilated. Atherosclerotic calcification is present. Bowel: No obstruction or bowel wall thickening. There is a loop of bowel within in anterior abdominal wall hernia. No evidence of incarceration or bowel obstruction. There is no evidence of appendicitis. There is an anastomosis at the rectosigmoid junction. There is also small bowel anastomosis in the left lower quadrant. Peritoneal Cavity: No ascites, collection or mesenteric inflammatory response. No free air. Lymph Nodes: Within normal limits. Bones: Within normal limits for the patient's age. Soft Tissues: There is a midline anterior abdominal wall scar present. PELVIS: Bladder: Symmetric distention, no gross wall thickening. Reproductive Organs: Unremarkable as visualized. Lymph Nodes: Within normal limits. Bones: Within normal limits. IMPRESSION: 1. There is no acute pulmonary process. 2. There is no acute abdominal or pelvic process. RADIATION DOSE DELIVERED: 1,350.04mGy.cm Total DLP DATA REPOSITORY: All CT scans at this facility are submitted to the National Radiology Data Registry (NRDR) Dose Index Registry (DIR) with the [employer] (ACR). RADIATION OPTIMIZATION: All CT scans at this facility use at least one of these dose optimization techniques: automated exposure control; mA and/or kV adjustment per patient size (includes targeted exams where dose is matched to clinical indication); or iterative reconstruction.
[2025-05-25] MEDS: Normal Saline - Diluent 50 ML VIAL IJ (14:19)
[2025-05-25] MEDS: Omnipaque 350 MG/ML 100 ML BTL IJ (14:19)
[2025-05-25] MEDS: Normal Saline Flush 10 ML SYR IVP ×2 (14:19→18:40)
[2025-05-25 15:00] LABS: RSV PCR Negative (Negative)
[2025-05-25 15:12] LABS: Troponin I 26 ng/L (<35)
[2025-05-25 15:15] LABS: COVID-19 PCR Positive (Negative)
[2025-05-25 15:39] LABS: Glucose Negative (Negative)
--- NOTE | 2025-05-25 15:46 | W.ED.GENAD ---
Discharge Plan Disposition Patient Disposition: Admit to [facility] Condition: Serious Discharge Details Clinical Impression: COVID, UTI (urinary tract infection) Admit Date/Time: 05/25/25 16:06 Admit Provider: Joby Hayes Attending Provider: Joby Hayes Primary Care Provider: Francine Owen ED Provider: Debbie Jackson Discharge Data Discharge Date/Time-TO BE ENTERED AT DEPARTURE: 05/25/25 17:25 HPI General Date/Time Provider Initiated Documentation: 05/25/25 12:36. HPI Narrative: This 69-year-old female with history of recent admission for MSSA bacteremia, meningioma of the resection hypertension hyperlipidemia diabetes peripheral vascular disease presents with fever and alteration of mental status today. Patient tested positive for COVID yesterday but has been sick for the past 2 days reportedly. Denies any chest pain or shortness of breath or any specific complaints aside from feeling very tired with little pills aApparently was slightly confused this morning and weak which is why she presents. Patient is unable to give any additional complaints. Reports cough denies shortness of breath. Denies any urinary symptoms Related Data Home Medications ?Medication ?Instructions ?Recorded ?Confirmed omega-3 fatty acids 1,000 mg 1,000 mg PO BID 04/14/20 05/25/25 capsule (Fish Oil Concentrate) lacosamide 200 mg tablet 200 mg PO BID 07/11/21 05/25/25 levetiracetam 750 mg tablet 500 mg PO BID 07/11/21 05/25/25 apixaban 5 mg tablet (Eliquis) 5 mg PO BID 10/08/24 05/25/25 bisacodyl 10 mg rectal suppository 10 mg AL Q12H PRN PRN 04/15/25 05/25/25 cyanocobalamin (vitamin B-12) 1,000 mcg PO DAILY 04/15/25 05/25/25 1,000 mcg capsule dexamethasone 1 mg tablet 1 mg PO DAILY 04/15/25 05/25/25 diphenhydramine HCl 25 mg capsule 25 mg PO Q12H PRN PRN 04/15/25 05/25/25 (Benadryl) gabapentin 300 mg capsule 300 mg PO BID 04/15/25 05/25/25 glipizide 2.5 mg tablet 2.5 mg PO DAILY 04/15/25 05/25/25 mv-min-iron 4.5 mg-folic ac 120 1 tab PO DAILY 04/15/25 05/25/25 mcg-vit K1 60 mcg-herbal no.352 tablet (Alive Women's Multivitamin) omeprazole 40 mg capsule,delayed 40 mg PO DAILY 04/15/25 05/25/25 release acetaminophen 325 mg tablet (Pain 650 mg PO Q6H PRN pain 04/25/25 05/25/25 Relief (acetaminophen)) cetirizine 10 mg tablet 10 mg PO DAILY #30 tabs 05/03/25 05/25/25 losartan 25 mg tablet 25 mg PO HS #0 tabs 05/03/25 05/25/25 magnesium gluconate 27 mg 1,000 mg (37.037 x 27 mg magnesium 05/03/25 05/25/25 magnesium (500 mg) tablet (500 mg)) PO DAILY #0 tabs bisacodyl 5 mg tablet,delayed 5 mg PO DAILY PRN 05/25/25 05/25/25 release (Dulcolax (bisacodyl)) dextrose 40 % oral gel (Glucose 10 g PO Q15M PRN 05/25/25 05/25/25 Gel) glucagon HCl 1 mg solution for 1 mg IM Q20M PRN 05/25/25 05/25/25 injection (Glucagon (HCl) Emergency Kit) glycerin (adult) (Fleet Glycerin 1 supp AL DAILY PRN 05/25/25 05/25/25 (Adult) rectal suppository) nicotine (polacrilex) 2 mg gum 2 mg buccal Q2H 05/25/25 05/25/25 (Nicorette) Previous Rx's ?Medication ?Instructions ?Recorded cetirizine 10 mg tablet 10 mg PO DAILY #30 tabs 05/03/25 losartan 25 mg tablet 25 mg PO HS #0 tabs 05/03/25 magnesium gluconate 27 mg 1,000 mg (37.037 x 27 mg magnesium 05/03/25 magnesium (500 mg) tablet (500 mg)) PO DAILY #0 tabs Allergies Allergy/AdvReac Type Severity Reaction Status Date / Time ciprofloxacin Allergy Intermediate Other (See Verified 05/25/25 12:34 Comment) spider venom Allergy Mild swelling Verified 05/25/25 12:34 [place] nut Allergy Unknown Verified 05/25/25 12:34 house dust Allergy Unknown Verified 05/25/25 12:34 Penicillins Allergy Unknown Verified 05/25/25 12:34 sulfamethoxazole (From AdvReac Intermediate Other (See Verified 05/25/25 12:34 Bactrim) Comment) trimethoprim (From Bactrim) AdvReac Intermediate Other (See Verified 05/25/25 12:34 Comment) General Stated Complaint: Fever VIKY: 2 Exam Narrative Exam Narrative: Alert and oriented times three 69-year-old female who appears chronically ill and fatigued, her lungs are actually clear to auscultation she is slightly slow to respond and able to flex and extend her neck without difficulty oropharynx patent uvula midline, mild suprapubic tenderness no CVA tenderness no visible evidence of trauma, well appearing wound on right lower extremity strength and sensation appear intact Course Vital Signs Vital signs: Vital Signs Temperature 38.8 C H 05/25/25 12:34 Pulse 96 H 05/25/25 12:34 Respiratory Rate 20 05/25/25 12:34 Blood Pressure 145/51 H 05/25/25 12:34 Pulse Oximetry 95 05/25/25 12:34 Temperature 38.8 C H 05/25/25 13:16 Pulse 74 05/25/25 15:16 Pulse 74 05/25/25 15:16 Respiratory Rate 17 05/25/25 15:16 Blood Pressure 132/43 L 05/25/25 15:16 Blood Pressure Mean 69 05/25/25 15:16 Blood Pressure Position Sitting 05/25/25 12:34 Pulse Oximetry 96 05/25/25 15:16 Oxygen Delivery Method Room Air 05/25/25 12:34 Oxygen Flow Rate 0 05/25/25 12:34 Lab/Test Results Lab/Test Results: 05/25/25 13:05 Blood Blood Culture - Pending 05/25/25 12:55 Blood Blood Culture - Pending Laboratory Tests Range/Units 05/25/25 05/25/25 05/25/25 12:55 13:35 14:48 WBC (4.4-10.8) 10^3/uL 15.03 H RBC (3.93-5.22) 10^6/uL 4.29 Hgb (11.2-15.7) g/dL 12.0 Hct (36.0-46.0) % 37.7 MCV (80-95) fL 88 MCH (27.0-33.0) pg 28.0 MCHC (32.0-36.0) % 31.8 L RDW (11.7-14.6) % 14.9 H Plt Count (130-400) 10^3/uL 211 MPV (8.0-11.0) fL 10.0 Immature Gran % % 0.6 Neutrophils % % 73.8 Lymphocytes % % 14.2 Monocytes % % 11.0 Eosinophils % % 0.1 Basophils % % 0.3 Nucleated RBC % (0.0-0.3) % 0.0 Absolute Neutrophils (1.2-6.7) 10^3/uL 11.09 H Absolute Lymphocytes (1.2-3.4) 10^3/uL 2.13 Absolute Monocytes (0.1-0.8) 10^3/uL 1.65 H Absolute Eosinophils (0.0-0.7) 10^3/uL 0.02 Absolute Basophils (0.0-0.2) 10^3/uL 0.05 RBC Morphology Normal VBG Lactate (<or=2.0) mmol/L 1.9 Sodium (136-145) mmol/L 139 Potassium (3.5-5.1) mmol/L 3.7 Chloride (98-107) mmol/L 101 Carbon Dioxide (20.0-31.0) mmol/L 30.5 Anion Gap (3-11) mmol/L 7.5 BUN (9-23) mg/dL 14 Creatinine (0.55-1.02) mg/dL 0.96 Est GFR (CKD-EPI 2020) (mL/min/1.73m2) 57.80 Glucose (74-106) mg/dL 122 H Calcium (8.3-10.6) mg/dL 8.7 Total Bilirubin (0.2-1.2) mg/dL 0.50 AST (<34) U/L 23 ALT (10-49) U/L 27 Alkaline Phosphatase (46-116) U/L 67 Troponin I (<35) ng/L 30 26 Total Protein (5.7-8.2) g/dL 6.6 Albumin (3.2-5.0) g/dL 4.0 Lipase (<53) U/L 27 Urine Color (Yellow) Urine Clarity (Clear) Urine pH (5-8) Ur Specific [place] (1.005-1.025) Urine Protein (Neg-Trace) mg/dL Urine Ketones (Negative) mg/dL Urine Blood (Negative) Urine Nitrite (Negative) Urine Bilirubin (Negative) Urine Urobilinogen (Up to 0.2) mg/dL Ur Leukocyte Esterase (Negative) Urine Glucose (Negative) mg/dL COVID-19 Source Nasopharynx SARS-CoV-2 (PCR) (Negative) Positive A Influenza Type A (PCR) (Negative) Negative Influenza Type B (PCR) (Negative) Negative RSV (PCR) (Negative) Negative Range/Units 05/25/25 15:07 WBC (4.4-10.8) 10^3/uL RBC (3.93-5.22) 10^6/uL Hgb (11.2-15.7) g/dL Hct (36.0-46.0) % MCV (80-95) fL MCH (27.0-33.0) pg MCHC (32.0-36.0) % RDW (11.7-14.6) % Plt Count (130-400) 10^3/uL MPV (8.0-11.0) fL Immature Gran % % Neutrophils % % Lymphocytes % % Monocytes % % Eosinophils % % Basophils % % Nucleated RBC % (0.0-0.3) % Absolute Neutrophils (1.2-6.7) 10^3/uL Absolute Lymphocytes (1.2-3.4) 10^3/uL Absolute Monocytes (0.1-0.8) 10^3/uL Absolute Eosinophils (0.0-0.7) 10^3/uL Absolute Basophils (0.0-0.2) 10^3/uL RBC Morphology VBG Lactate (<or=2.0) mmol/L Sodium (136-145) mmol/L Potassium (3.5-5.1) mmol/L Chloride (98-107) mmol/L Carbon Dioxide (20.0-31.0) mmol/L Anion Gap (3-11) mmol/L BUN (9-23) mg/dL Creatinine (0.55-1.02) mg/dL Est GFR (CKD-EPI 2020) (mL/min/1.73m2) Glucose (74-106) mg/dL Calcium (8.3-10.6) mg/dL Total Bilirubin (0.2-1.2) mg/dL AST (<34) U/L ALT (10-49) U/L Alkaline Phosphatase (46-116) U/L Troponin I (<35) ng/L Total Protein (5.7-8.2) g/dL Albumin (3.2-5.0) g/dL Lipase (<53) U/L Urine Color (Yellow) Yellow Urine Clarity (Clear) Clear Urine pH (5-8) 6.0 Ur Specific [place] (1.005-1.025) <= 1.005 Urine Protein (Neg-Trace) mg/dL Negative Urine Ketones (Negative) mg/dL Negative Urine Blood (Negative) Negative Urine Nitrite (Negative) Negative Urine Bilirubin (Negative) Negative Urine Urobilinogen (Up to 0.2) mg/dL 0.2 Ur Leukocyte Esterase (Negative) Small H Urine Glucose (Negative) mg/dL Negative COVID-19 Source SARS-CoV-2 (PCR) (Negative) Influenza Type A (PCR) (Negative) Influenza Type B (PCR) (Negative) RSV (PCR) (Negative) Medical Decision Making Results: CT head, chest abdomen and pelvis do not show acute abnormality per radiology interpretation my review, leukocytosis of 15,000, lactate within normal limits urinalysis with greater than 50 white blood cells with positive leukocyte E[place]ace with moderate bacteria Kote, COVID-positive Assessment and plan: Given patient's presentation leukocytosis initially gave cefepime 50 mg IV, I do see that she had a recent admission for urinary tract infection and septicemia, she is also COVID-positive so I will initiate remdesivir. There is no obvious infiltrate and patient has been in no respiratory distress, her blood pressures been stable she has received fluid up to 50 cc an hour throughout her stay. I do see her ejection fraction has been fine in the past 65%. She did receive Tylenol 500 mg remdesivir, cefepime empirically pending blood cultures.. At this time given her age and medical comorbidities I think she benefit from observation overnight. She does currently reside at the rehabilitation center but her blood pressure is on the softer side, I think she would benefit from remdesivir for her COVID-19 and continued evaluation for possible urinary tract infection. Case was discussed with hospital service she wishes to be full CODE STATUS Quality:[facility] Health Related Social Needs: Health related social needs lonely/isolated Health related social needs details says sometimes she has a little loneliness, but is not concerned PFSH All Active Problems (Updated 05/27/25 @ 12:06 by GUICHO Corona) UTI (urinary tract infection) (Acute) COVID (Acute) Vaginal candidiasis (Acute) MSSA bacteremia (Acute) Bacteremia associated with intravascular line (Acute) Staphylococcus aureus bacteremia (Acute) Brain tumor (Acute) Sepsis (Acute) PAD (peripheral artery disease) (Acute) PVD (peripheral vascular disease) (Chronic) Dystrophia unguium (Acute) Onychomycosis (Acute) Ingrown toenail (Acute) Diabetes (Chronic) Vitamin B12 deficiency (non anemic) (Acute) Hypertension (Chronic) Hyperlipidemia (Acute) GERD (gastroesophageal reflux disease) (Chronic) Peripheral neuropathy (Acute) COPD (chronic obstructive pulmonary disease) (Chronic) Obstructive sleep apnea (Chronic) 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) Meningioma (Acute) Medical History Venous thromboembolism (VTE) Cerebral venous thrombosis Cerebral venous infarction, acute Spinal stenosis cervical Diverticular disease Surgical History Synovial cyst of sacral region resection S/P cholecystectomy S/P craniotomy 1999 and 2018 S/P cervical discectomy C5-6 decompression for cord impingement Family History Mother Stroke Father Diabetes Heart disease Social History Smoking/Tobacco Use Status: Former Tobacco Use Smoking risk assessment performed?: Yes Alcohol Intake: never Drug use: Never Substance use type: marijuana Household members: none Housing: assisted living facility Number of Children: 2 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
[2025-05-25 15:49] LABS: RBC Negative HPF (0-2); WBC >50 HPF (0-5)
--- NOTE | 2025-05-25 16:31 | W.PM.HP.N ---
Date of service: 05/25/25 Time of Service: 16:32 Assessment and Plan Assessment and plan (1) Sepsis: Status: Acute Assessment and plan: Meets criteria with elevated WBC, fever, and possible UTI vs COVID With recent MSSA bacteremia, recurrence should also be ruled out. I agree with admission with blood cultures pending. Given 1.5 liters, give another slowly as she is dry, don't want to overdo fluids with COVID. Ceftriaxone would cover UTI and MSSA, use this for now. Given chronic steroid use, add hydrocortisone IV See below (2) COVID: Status: Acute Assessment and plan: This is the most likely cause of fever, also cough, though she is not hypoxic. Stared on remdesavir, which is indicated given high risk. Dexamethasone not indicated as not hypoxic, but giving hydrocortisone as above. If she is persistently hypoxic, I would just change to dexamethasone 6mg/day unless she is hypotensive. High risk for VTE, but on full dose apixaban. (3) UTI (urinary tract infection): Status: Acute Assessment and plan: Possible source of infection, difficult to sleep technologist focal symptoms with MS changes, u/a is positive. Ceftriaxone as above with culture pending. (4) Diabetes: Status: Chronic Assessment and plan: Last A1c 7.0. Continue outpatient therapy with prn low dose ISS. (5) COPD (chronic obstructive pulmonary disease): Status: Chronic Assessment and plan: Not active. Can use albuterol via inhaler if she is wheezing. (6) Hypertension: Status: Chronic Assessment and plan: Taken off her low dose losartan since last admission as BP running low. monitor. 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 (9) GERD (gastroesophageal reflux disease): Status: Chronic Assessment and plan: continue PPI Discharge Planning Discharge Planning: anticipate 48 hours for culture to make sure not bacteremic again, can discharge then after 3rd dose remdesavir if otherwise doing well. History of Present Illness History of Present Illness Chief Complaint: fever, weakness Narrative: 69-year-old female history of seizures related to meningioma on oral Keppra and lacosamide, cerebral venous thrombosis, PAD, diabetes, hypertension, COPD, CKD stage III who was recently admitted 04/15-05/03 for MSSA bacteremia treated with 2+ weeks of IV cefazolin in the setting of a vascular access port that was removed. Today (05/25) she was sent from [facility] with fever and alteration of her mental status, having tested positive for COVID on 05/24. She started feeling sick 2 days ago with headache, feverishness, and nasal congestion. Minimal cough. She doesn't feel short of breath or chest pain, but does feel week. She feels hot/cold. No rigors. She is thirsty, no sore throat. She has been eating. She feels a little cloudy headed, not dizzy like she wants to pass out. She does not have any dysuria, urinary frequency, or hematuria. 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) GERD (gastroesophageal reflux disease) (Chronic) Peripheral neuropathy (Acute) Diabetes (Chronic) Hypertension (Chronic) Vitamin B12 deficiency (non anemic) (Acute) Obstructive sleep apnea (Chronic) Meningioma (Acute) Hyperlipidemia (Acute) COPD (chronic obstructive pulmonary disease) (Chronic) Medical History Venous thromboembolism (VTE) Cerebral venous thrombosis Cerebral venous infarction, acute Spinal stenosis cervical Diverticular disease Surgical History Synovial cyst of sacral region resection S/P cholecystectomy S/P craniotomy 2000 and 2018 S/P cervical discectomy C5-6 decompression for cord impingement Family History Mother Stroke Father Diabetes Heart disease Social History Smoking/Tobacco Use Status: Former Tobacco Use Smoking risk assessment performed?: Yes Alcohol Intake: never Drug use: Never Substance use type: marijuana Household members: none Housing: house Number of Children: 2 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 What is your relationship status?: Panel score (0-1 are the most socially isolated patients): 0 Seatbelt use: always Additional Social history: at [facility] since recent admissions 2024 Meds Allergies and Home Medications Allergies Allergy/AdvReac Type Severity Reaction Status Date / Time ciprofloxacin Allergy Intermediate Other (See Verified 05/25/25 12:34 Comment) spider venom Allergy Mild swelling Verified 05/25/25 12:34 [place] nut Allergy Unknown Verified 05/25/25 12:34 house dust Allergy Unknown Verified 05/25/25 12:34 Penicillins Allergy Unknown Verified 05/25/25 12:34 sulfamethoxazole (From AdvReac Intermediate Other (See Verified 05/25/25 12:34 Bactrim) Comment) trimethoprim (From Bactrim) AdvReac Intermediate Other (See Verified 05/25/25 12:34 Comment) Home Medications ?Medication ?Instructions ?Recorded ?Confirmed ?Type omega-3 fatty acids 1,000 mg 1,000 mg PO BID 04/14/20 05/25/25 History capsule (Fish Oil Concentrate) lacosamide 200 mg tablet 200 mg PO BID 07/11/21 05/25/25 History levetiracetam 750 mg tablet 500 mg PO BID 07/11/21 05/25/25 History apixaban 5 mg tablet (Eliquis) 5 mg PO BID 10/08/24 05/25/25 History bisacodyl 10 mg rectal suppository 10 mg [place] Q12H PRN PRN 04/15/25 05/25/25 History cyanocobalamin (vitamin B-12) 1,000 mcg PO DAILY 04/15/25 05/25/25 History 1,000 mcg capsule dexamethasone 1 mg tablet 1 mg PO DAILY 04/15/25 05/25/25 History diphenhydramine HCl 25 mg capsule 25 mg PO Q12H PRN PRN 04/15/25 05/25/25 History (Benadryl) gabapentin 300 mg capsule 300 mg PO BID 04/15/25 05/25/25 History glipizide 2.5 mg tablet 2.5 mg PO DAILY 04/15/25 05/25/25 History mv-min-iron 4.5 mg-folic ac 120 1 tab PO DAILY 04/15/25 05/25/25 History mcg-vit K1 60 mcg-herbal no.352 tablet (Alive Women's Multivitamin) omeprazole 40 mg capsule,delayed 40 mg PO DAILY 04/15/25 05/25/25 History release acetaminophen 325 mg tablet (Pain 650 mg PO Q6H PRN pain 04/25/25 05/25/25 History Relief (acetaminophen)) cetirizine 10 mg tablet 10 mg PO DAILY #30 tabs 05/03/25 05/25/25 Rx losartan 25 mg tablet 25 mg PO HS #0 tabs 05/03/25 05/25/25 Rx magnesium gluconate 27 mg 1,000 mg (37.037 x 27 mg magnesium 05/03/25 05/25/25 Rx magnesium (500 mg) tablet (500 mg)) PO DAILY #0 tabs bisacodyl 5 mg tablet,delayed 5 mg PO DAILY PRN 05/25/25 05/25/25 History release (Dulcolax (bisacodyl)) dextrose 40 % oral gel (Glucose 10 g PO Q15M PRN 05/25/25 05/25/25 History Gel) glucagon HCl 1 mg solution for 1 mg IM Q20M PRN 05/25/25 05/25/25 History injection (Glucagon (HCl) Emergency Kit) glycerin (adult) (Fleet Glycerin 1 supp [place] DAILY PRN 05/25/25 05/25/25 History (Adult) rectal suppository) nicotine (polacrilex) 2 mg gum 2 mg buccal Q2H 05/25/25 05/25/25 History (Nicorette) Exam Narrative Exam Narrative: GEN: Alert and oriented x 3, though history is vague and speech is a little slow, pleasant and cooperative. No acute distress at rest. HEENT: Head atraumatic. Conjunctiva clear, no icterus. PEERL, EOMI. + rhinorrhea, mucousy. MM dry, OP benign. Neck is supple with no masses or lymphadenopathy, trachea midline LUNGS: CTAB with normal effort, though she has a wet cough CV: RRR with no murmurs, gallops, or rubs. ABD: active bowel sounds, soft, nontender and nondistended. No masses. EXT: no cyanosis, clubbing. 1+ lucio edema to shins MSK: No joint redness or swelling NEURO: CN 2-12 grossly intact. Normal movement of 4 extremities. Normal speech and coordination. No tremor SKIN: No rashes. Wound on right ankle dressed, clean, not red or tender. PSYCH: normal mood and affect, normal thought process Results Imaging EKG: report reviewed and image reviewed (NSR, no ischemic changes) Imaging Studies: CT C/A/P: 1. There is no acute pulmonary process. 2. There is no acute abdominal or pelvic process. CT head: No acute intracranial process. Labs 05/25/25 12:55 05/25/25 12:55 Labs: Laboratory Results - last 24 hr 05/25/25 05/25/25 05/25/25 12:55 13:35 14:48 WBC 15.03 H RBC 4.29 Hgb 12.0 Hct 37.7 MCV 88 MCH 28.0 MCHC 31.8 L RDW 14.9 H Plt Count 211 MPV 10.0 Immature Gran % 0.6 Neutrophils % 73.8 Lymphocytes % 14.2 Monocytes % 11.0 Eosinophils % 0.1 Basophils % 0.3 Nucleated RBC % 0.0 Absolute Neutrophils 11.09 H Absolute Lymphocytes 2.13 Absolute Monocytes 1.65 H Absolute Eosinophils 0.02 Absolute Basophils 0.05 RBC Morphology Normal VBG Lactate 1.9 Sodium 139 Potassium 3.7 Chloride 101 Carbon Dioxide 30.5 Anion Gap 7.5 BUN 14 Creatinine 0.96 Est GFR (CKD-EPI 2020) 57.80 Glucose 122 H Calcium 8.7 Total Bilirubin 0.50 AST 23 ALT 27 Alkaline Phosphatase 67 Troponin I 30 26 Total Protein 6.6 Albumin 4.0 Lipase 27 Urine Color Urine Clarity Urine pH Ur Specific [place] Urine Protein Urine Ketones Urine Blood Urine Nitrite Urine Bilirubin Urine Urobilinogen Ur Leukocyte Esterase Urine RBC Urine WBC Ur Epithelial Cells Urine Crystals Urine Bacteria Urine Casts Urine Mucus Urine Other Ur Culture Indicated? Urine Glucose COVID-19 Source Nasopharynx SARS-CoV-2 (PCR) Positive A Influenza Type A (PCR) Negative Influenza Type B (PCR) Negative RSV (PCR) Negative 05/25/25 05/25/25 15:07 15:48 WBC RBC Hgb Hct MCV MCH MCHC RDW Plt Count MPV Immature Gran % Neutrophils % Lymphocytes % Monocytes % Eosinophils % Basophils % Nucleated RBC % Absolute Neutrophils Absolute Lymphocytes Absolute Monocytes Absolute Eosinophils Absolute Basophils RBC Morphology VBG Lactate Sodium Potassium Chloride Carbon Dioxide Anion Gap BUN Creatinine Est GFR (CKD-EPI 2020) Glucose Calcium Total Bilirubin AST ALT Alkaline Phosphatase Troponin I Cancelled Total Protein Albumin Lipase Urine Color Yellow Urine Clarity Clear Urine pH 6.0 Ur Specific [place] <= 1.005 Urine Protein Negative Urine Ketones Negative Urine Blood Negative Urine Nitrite Negative Urine Bilirubin Negative Urine Urobilinogen 0.2 Ur Leukocyte Esterase Small H Urine RBC Negative Urine WBC >50 H Ur Epithelial Cells Moderate Urine Crystals Negative Urine Bacteria Moderate Urine Casts Negative Urine Mucus Trace Urine Other Rare Renal Ur Culture Indicated? No/Sq. Contamination Urine Glucose Negative COVID-19 Source SARS-CoV-2 (PCR) Influenza Type A (PCR) Influenza Type B (PCR) RSV (PCR) Last Vital Signs Temp 38.8 C H 05/25/25 13:16 Pulse 74 05/25/25 15:16 Resp 17 05/25/25 15:16 BP 132/43 L 05/25/25 15:16 Pulse Ox 96 05/25/25 15:16 VTE Prohylaxis Risk Level: Moderate/High Risk Contraindications: None Prophylaxis: Patient anticoagulated (full dose apixaban) Time Spent Time spent with Patient: 55-74 minutes Time was spent: preparing to see the patient(eg.review tests), obtaining and/or reviewing separately otained hiistory, ordering medications,tests, procedures, referring, communicating with other health respiratory care instructor, indepentently interpreting results, counseling the patient and care coordination
[2025-05-25] MEDS: REMDESIVIR 200 MG in Normal Saline 250 ML 250 MG IVPB (16:54)
[2025-05-25] MEDS: Normal Saline 1,000 ML 1000 ML IV (16:54)
--- NOTE | 2025-05-25 18:30 | W.PC.ACHO ---
Registration Status: ADM ELISEO Primary Language: Preferred Language: ED Information & Data Chief Complaint Fever 05/25/25 15:49 Other Complaint RespSymp 05/25/25 12:34 Triage Note Facility concerned about 05/25/25 12:34 reduction in patient mental status, potentially related to recent COVID Dx. (0000 today) Medical / Surgical History (Last Reviewed 05/25/25 @ 17:37 by Joby Hayes) Venous thromboembolism (VTE) Cerebral venous thrombosis Cerebral venous infarction, acute Spinal stenosis Diverticular disease (Last Reviewed 05/25/25 @ 17:37 by Joby Hayes) Synovial cyst of sacral region S/P cholecystectomy S/P craniotomy S/P cervical discectomy Most Recent Vital Signs Temperature 36.6 C 05/25/25 17:38 Pulse 67 05/25/25 17:38 Pulse Rhythm Regular 05/25/25 17:38 Pulse 68 05/25/25 17:01 Respiratory Rate 16 05/25/25 17:38 Respiratory Effort Normal, Non-Labored 05/25/25 17:38 Respiratory Depth Normal 05/25/25 17:38 Respiratory Pattern Normal 05/25/25 17:38 Blood Pressure 126/46 L 05/25/25 17:38 Blood Pressure Mean 73 05/25/25 17:01 Blood Pressure Position Sitting 05/25/25 12:34 Pulse Oximetry 93 05/25/25 17:38 Oxygen Delivery Method Room Air 05/25/25 17:38 Oxygen Flow Rate 0 05/25/25 17:38 Allergies ciprofloxacin Allergy (Intermediate, Verified 05/25/25 12:34) [facility] (See Comment[facility] Allergy (Mild, Verified 05/25/25 12:34) swelling [place] nut Allergy (Verified 05/25/25 12:34) Unknown unknown house dust Allergy (Verified 05/25/25 12:34) Unknown Penicillins Allergy (Verified 05/25/25 12:34) Unknown sulfamethoxazole (From Bactrim) Adverse Reaction (Intermediate, Verified 05/25/25 12:34) Other (See Comment) Emesis trimethoprim (From Bactrim) Adverse Reaction (Intermediate, Verified 05/25/25 12:34) Other (See Comment) Emesis IV IV Catheter Type [Left Saline Lock Antecubital] IV Catheter Type [Left Forearm Saline Lock ] IV Catheter Gauge [Left 18 Antecubital] IV Catheter Gauge [Left 18 Forearm] Diet Orders Category Date Time Status Regular/Normal [DIET] Nutrition 05/25/25 Dinner Active Diagnostics 05/25/25 05/25/25 05/25/25 Range/Units 15:48 15:07 14:48 WBC (4.4-10.8) 10^3/uL RBC (3.93-5.22) 10^6/uL Hgb (11.2-15.7) g/dL Hct (36.0-46.0) % MCV (80-95) fL MCH (27.0-33.0) pg MCHC (32.0-36.0) % RDW (11.7-14.6) % Plt Count (130-400) 10^3/uL MPV (8.0-11.0) fL Immature Gran % % Neutrophils % % Lymphocytes % % Monocytes % % Eosinophils % % Basophils % % Nucleated RBC % (0.0-0.3) % Absolute Neutrophils (1.2-6.7) 10^3/uL Absolute Lymphocytes (1.2-3.4) 10^3/uL Absolute Monocytes (0.1-0.8) 10^3/uL Absolute Eosinophils (0.0-0.7) 10^3/uL Absolute Basophils (0.0-0.2) 10^3/uL RBC Morphology VBG Lactate (<or=2.0) mmol/L Sodium (136-145) mmol/L Potassium (3.5-5.1) mmol/L Chloride (98-107) mmol/L Carbon Dioxide (20.0-31.0) mmol/L Anion Gap (3-11) mmol/L BUN (9-23) mg/dL Creatinine (0.55-1.02) mg/dL Est GFR (CKD-EPI 2020) (mL/min/1.73m2) Glucose (74-106) mg/dL Calcium (8.3-10.6) mg/dL Total Bilirubin (0.2-1.2) mg/dL AST (<34) U/L ALT (10-49) U/L Alkaline Phosphatase (46-116) U/L Troponin I Cancelled 26 (<35) ng/L Total Protein (5.7-8.2) g/dL Albumin (3.2-5.0) g/dL Lipase (<53) U/L Urine Color Yellow (Yellow) Urine Clarity Clear (Clear) Urine pH 6.0 (5-8) Ur Specific [place] <= 1.005 (1.005-1.025) Urine Protein Negative (Neg-Trace) mg/dL Urine Ketones Negative (Negative) mg/dL Urine Blood Negative (Negative) Urine Nitrite Negative (Negative) Urine Bilirubin Negative (Negative) Urine Urobilinogen 0.2 (Up to 0.2) mg/dL Ur Leukocyte Esterase Small H (Negative) Urine RBC Negative (0-2) HPF Urine WBC >50 H (0-5) HPF Ur Epithelial Cells Moderate (Negative) HPF Urine Crystals Negative (Negative) HPF Urine Bacteria Moderate (Negative) HPF Urine Casts Negative (Negative) LPF Urine Mucus Trace (Negative) Urine Other Rare Renal (Negative) Ur Culture Indicated? No/Sq. Contamination Urine Glucose Negative (Negative) mg/dL COVID-19 Source SARS-CoV-2 (PCR) (Negative) Influenza Type A (PCR) (Negative) Influenza Type B (PCR) (Negative) RSV (PCR) (Negative) 05/25/25 05/25/25 Range/Units 13:35 12:55 WBC 15.03 H (4.4-10.8) 10^3/uL RBC 4.29 (3.93-5.22) 10^6/uL Hgb 12.0 (11.2-15.7) g/dL Hct 37.7 (36.0-46.0) % MCV 88 (80-95) fL MCH 28.0 (27.0-33.0) pg MCHC 31.8 L (32.0-36.0) % RDW 14.9 H (11.7-14.6) % Plt Count 211 (130-400) 10^3/uL MPV 10.0 (8.0-11.0) fL Immature Gran % 0.6 % Neutrophils % 73.8 % Lymphocytes % 14.2 % Monocytes % 11.0 % Eosinophils % 0.1 % Basophils % 0.3 % Nucleated RBC % 0.0 (0.0-0.3) % Absolute Neutrophils 11.09 H (1.2-6.7) 10^3/uL Absolute Lymphocytes 2.13 (1.2-3.4) 10^3/uL Absolute Monocytes 1.65 H (0.1-0.8) 10^3/uL Absolute Eosinophils 0.02 (0.0-0.7) 10^3/uL Absolute Basophils 0.05 (0.0-0.2) 10^3/uL RBC Morphology Normal VBG Lactate 1.9 (<or=2.0) mmol/L Sodium 139 (136-145) mmol/L Potassium 3.7 (3.5-5.1) mmol/L Chloride 101 (98-107) mmol/L Carbon Dioxide 30.5 (20.0-31.0) mmol/L Anion Gap 7.5 (3-11) mmol/L BUN 14 (9-23) mg/dL Creatinine 0.96 (0.55-1.02) mg/dL Est GFR (CKD-EPI 2020) 57.80 (mL/min/1.73m2) Glucose 122 H (74-106) mg/dL Calcium 8.7 (8.3-10.6) mg/dL Total Bilirubin 0.50 (0.2-1.2) mg/dL AST 23 (<34) U/L ALT 27 (10-49) U/L Alkaline Phosphatase 67 (46-116) U/L Troponin I 30 (<35) ng/L Total Protein 6.6 (5.7-8.2) g/dL Albumin 4.0 (3.2-5.0) g/dL Lipase 27 (<53) U/L Urine Color (Yellow) Urine Clarity (Clear) Urine pH (5-8) Ur Specific [place] (1.005-1.025) Urine Protein (Neg-Trace) mg/dL Urine Ketones (Negative) mg/dL Urine Blood (Negative) Urine Nitrite (Negative) Urine Bilirubin (Negative) Urine Urobilinogen (Up to 0.2) mg/dL Ur Leukocyte Esterase (Negative) Urine RBC (0-2) HPF Urine WBC (0-5) HPF Ur Epithelial Cells (Negative) HPF Urine Crystals (Negative) HPF Urine Bacteria (Negative) HPF Urine Casts (Negative) LPF Urine Mucus (Negative) Urine Other (Negative) Ur Culture Indicated? Urine Glucose (Negative) mg/dL COVID-19 Source Nasopharynx SARS-CoV-2 (PCR) Positive A (Negative) Influenza Type A (PCR) Negative (Negative) Influenza Type B (PCR) Negative (Negative) RSV (PCR) Negative (Negative) 05/25/25 13:05 Blood Culture - Pending Blood 05/25/25 12:55 Blood Culture - Pending Blood Intake and Output - 24 Hour Total 05/25/25 12:21 thru 05/25/25 18:22 Intake Total 150 Output Total 1500 Balance -1350 Weight 112 kg Intake: IV 150 Output: Urine 1500 Other: Urine Color Pale Yellow Urine Appearance Sediment Urinary Catheter Urinary Catheter Date of 05/25/25 Insertion [Urethral (Rangel)] Time of insertion [Urethral ( 15:17 Rangel)] Falls Risk Assessment History of Falls Previous History 05/25/25 17:38 Contributing Factors No Factors,Impairments 05/25/25 17:38 Ambulatory Aids Uses ambulatory device 05/25/25 17:38 Tubes/Lines With any additional score 05/25/25 17:38 Gait Evaluation W/any additional score 05/25/25 17:38 Cognition No cognitive impairment 05/25/25 17:38 Fall Total Score 73 05/25/25 17:38 Level of Risk High Risk 05/25/25 17:38 Problems (Last Reviewed 05/25/25 @ 17:37 by Joby Hayes) UTI (urinary tract infection) (Acute) COVID (Acute) Sepsis (Acute) Diabetes (Chronic) Hypertension (Chronic) GERD (gastroesophageal reflux disease) (Chronic) COPD (chronic obstructive pulmonary disease) (Chronic) 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 Additional Patient Information/Comments: 1200 clear yellow urine drained from rangel upon arrival to floor. soaked brief and karen removed from under patient, iodine swabs from rangel placement lodged under patient in groin, NS and LR running on same line with no other medications running through line, remdesivir on separate line. Report Received From: Jaziel Campuzano report called at [phone].
[2025-05-25] MEDS: Acetaminophen 325 MG TAB 650 MG PO (18:40)
[2025-05-25] MEDS: Hydrocortisone SOD SUC. 100 MG VIAL 50 MG IVP (18:40)
[2025-05-25] MEDS: Apixaban 5 MG TAB PO (20:15)
[2025-05-25] MEDS: Lacosamide 100 MG TAB 200 MG PO (20:15)
[2025-05-25] MEDS: levETIRAcetam 500 MG TAB PO (20:15)
[2025-05-25] MEDS: Omega-3 Fatty Acids 1000 MG CAP PO (20:15)
[2025-05-25] MEDS: cefTRIAXone 2 GM/50 ML BAG IVPB (22:25)
[2025-05-26] VITALS (7 sets, daily range): BP systolic 134–165; BP diastolic 70–84; PULSE 61–66; RESP 16–18; TEMP 36.5–36.7; O2SAT 94–98
[2025-05-26] MEDS: Acetaminophen 325 MG TAB 650 MG PO ×2 (00:11→06:18)
[2025-05-26] MEDS: Hydrocortisone SOD SUC. 100 MG VIAL 50 MG IVP ×3 (02:08→18:13)
[2025-05-26 07:33] LABS: HCT 35.2 % (36.0-46.0); HGB 11.3 g/dL (11.2-15.7); MCH 28.2 pg (27.0-33.0); MCHC 32.1 % (32.0-36.0); MCV 88 fL (80-95); MPV 10.1 fL (8.0-11.0); Platelet Count 181 10^3/uL (130-400); RBC 4.01 10^6/uL (3.93-5.22); RDW 14.7 % (11.7-14.6); RDW-SD 47.8 fL; WBC 9.88 10^3/uL (4.4-10.8)
[2025-05-26 07:58] LABS: Anion Gap 9.3 mmol/L (3-11); BUN 13 mg/dL (9-23); CO2 27.7 mmol/L (20.0-31.0); Calcium 8.7 mg/dL (8.3-10.6); Chloride 106 mmol/L (98-107); Glucose 196 mg/dL (74-106); Potassium 3.7 mmol/L (3.5-5.1); Sodium 143 mmol/L (136-145)
[2025-05-26] MEDS: Omeprazole 20 MG CAPCR 40 MG PO (08:08)
[2025-05-26] MEDS: glipiZIDE 5 MG TAB 2.5 MG PO (08:08)
--- NOTE | 2025-05-26 09:39 | INITIAL_ITS ---
Date of service: 05/26/25 Time of Service: 09:39 Care Management Initial Assmt Initial Assessment Reason for Hospitalization: Covid and UTI Functional Status/Living Situation Patient Presentation: presented to the ED yesterday afternoon with fever and altered mental status. She was found to have a UTI and also be positive for Covid. She was admitted for IV antibioitics, tx of her covid with remdesivir, and monitoring. She had blood cultures drawn, they were negative at 24hours and she will be discharged when the cultures have returned negative at 48h. was in very good spirits and was very pleasant when CM met with her today. She stated that she still intends to return to her home and has kept her caregiver. Prior to her living at [facility], she was alone in her home with caregivers 5 days/week. She continues to work with PT and OT at the [facility]. She worked with PT here at [facility] today, and she did well with stand by assist. CM has been in contact with staff at [facility]. They have assured CM that will be able to return to their facility. Town of Residence: [facility] but currently residing at [facility] Resides with: Alone (living alone prior to [facility] with paid caregiver 5d/week) and Other (currently residing at 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) Instrumental Activities of Daily Living (ADLs): Requires support Physical Functioning/Mobility Assistive Device: FWW Advance Directives Advance Directives: Do you have an Advance Directive: Y , 08:18 AD On File at [facility]: Y 04/19/25, 08:18 Date Asked 05/25/25 05/25/25, 12:42 AD Date Reviewed 04/23/25 04/23/25, 07:23 COLST On File at [facility] COLST Date Scanned Code Status Resuscitation Status Full Code Insurance Coverage/Financial Issues Insurance: BC/BS [place] [facility] Advantage Care Team Visit Care Team Role Provider Type Francine Owen Primary Care Provider [facility]agen Emergency Provider [employer] Joby Hayes Admit Provider [facility] STAFF PHYSICIAN Attending Provider Discharge Potential Discharge Needs: Other (facility provider f/u) Anticipated Barriers to Discharge: None Identified Patient/Family Education Needs: Review discharge instructions, discuss Ask Me Three Transportation: [facility] Transportation: Wheel chair van Plan: Anticipate that will return to [facility] for Living once she is medically stable. She will f/u with the facility provider and continue per her plan of care. She will transport via [facility] wheelchair van. CM will continue to [facility] and update the plan as needed. Social Determinants of Health Screening Will the Patient Participate in the Screening?: Unable to obtain PFSH All Active Problems UTI (urinary tract infection) (Acute) COVID (Acute) Vaginal candidiasis (Acute) MSSA bacteremia (Acute) Bacteremia associated with intravascular line (Acute) Staphylococcus aureus bacteremia (Acute) Brain tumor (Acute) Sepsis (Acute) PAD (peripheral artery disease) (Acute) PVD (peripheral vascular disease) (Chronic) Dystrophia unguium (Acute) Onychomycosis (Acute) Ingrown toenail (Acute) Diabetes (Chronic) Vitamin B12 deficiency (non anemic) (Acute) Hypertension (Chronic) Hyperlipidemia (Acute) GERD (gastroesophageal reflux disease) (Chronic) Peripheral neuropathy (Acute) COPD (chronic obstructive pulmonary disease) (Chronic) Obstructive sleep apnea (Chronic) 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) Meningioma (Acute) Medical History Venous thromboembolism (VTE) Cerebral venous thrombosis Cerebral venous infarction, acute Spinal stenosis cervical Diverticular disease Surgical History Synovial cyst of sacral region resection S/P cholecystectomy S/P craniotomy 1999 and 2018 S/P cervical discectomy C5-6 decompression for cord impingement Family History Mother Stroke Father Diabetes Heart disease Social History Smoking/Tobacco Use Status: Former Tobacco Use Smoking risk assessment performed?: Yes Alcohol Intake: never Drug use: Never Substance use type: marijuana Household members: none Housing: assisted living facility Number of Children: 2 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 since recent admissions 2024 Readmission Within the Past 30 Days Yes or No: No
[2025-05-26] MEDS: Cyanocobalamin 500 MCG TAB 1000 MCG PO (09:52)
[2025-05-26] MEDS: Magnesium Gluconate 500 MG TAB 1000 MG PO (09:52)
[2025-05-26] MEDS: Dexamethasone 1 MG TAB PO (09:53)
[2025-05-26] MEDS: Lacosamide 100 MG TAB 200 MG PO ×2 (09:53→20:00)
[2025-05-26] MEDS: Apixaban 5 MG TAB PO ×2 (09:53→20:00)
[2025-05-26] MEDS: Cetirizine 10 MG TAB PO (09:53)
[2025-05-26] MEDS: levETIRAcetam 500 MG TAB PO ×2 (09:53→20:00)
[2025-05-26] MEDS: Omega-3 Fatty Acids 1000 MG CAP PO ×2 (09:54→20:00)
[2025-05-26] MEDS: Normal Saline Flush 10 ML SYR IVP ×4 (09:54→20:01)
--- NOTE | 2025-05-26 12:51 | PGE_ITS ---
Date of Service Date of service: 05/26/25 Time of Service: 12:56 Assessment and Plan Assessment and plan (1) Sepsis: Status: Acute Assessment and plan: Met criteria on admission with elevated WBC, fever, and possible UTI vs COVID, WBC/fever have normalized With recent MSSA bacteremia, recurrence should also be ruled out. Observation admission with blood cultures pending. Ceftriaxone would cover UTI and MSSA, use this for now. Given chronic steroid use, added hydrocortisone, plan for just the 3 days See below (2) COVID: Status: Acute Assessment and plan: This is the most likely cause of fever, also cough, though she is not hypoxic. Stared on remdesavir, which is indicated given high risk. Dexamethasone not indicated as not hypoxic, but giving hydrocortisone as above. High risk for VTE, but on full dose apixaban. If cultures negative, plan discharge 05/27 after 3rd dose of remdesavir. 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 Ceftriaxone as above to cover MSSA with culture pending, but will not treat for UTI. (4) Diabetes: Status: Chronic Assessment and plan: Last A1c 7.0. Continue outpatient therapy with prn low dose ISS. (5) COPD (chronic obstructive pulmonary disease): Status: Chronic Assessment and plan: Not active. Can use albuterol via inhaler if she is wheezing, hasn't needed. (6) Hypertension: Status: Chronic Assessment and plan: Taken off her low dose losartan since last admission as BP running low. BPs borderline high 130s/80s off therapy. 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 Still getting mucous out. She is eating and drinking. Exam Narrative Exam Narrative: GEN: Alert and oriented. No acute distress at rest. HEENT: MMM LUNGS: CTAB with normal effort CV: RRR with no murmurs, gallops, or rubs. ABD: active bowel sounds, soft, nontender and nondistended. No masses. EXT: no cyanosis, clubbing. 1+ lucio edema to shins Objective Last Vital Signs Temp 36.7 C 05/26/25 02:00 Pulse 63 05/26/25 02:00 Resp 18 05/26/25 02:00 BP 137/83 05/26/25 02:00 Pulse Ox 94 05/26/25 02:00 Laboratory Results - last 24 hr 05/25/25 05/25/25 05/25/25 12:55 13:35 14:48 WBC 15.03 H RBC 4.29 Hgb 12.0 Hct 37.7 MCV 88 MCH 28.0 MCHC 31.8 L RDW 14.9 H Plt Count 211 MPV 10.0 Immature Gran % 0.6 Neutrophils % 73.8 Lymphocytes % 14.2 Monocytes % 11.0 Eosinophils % 0.1 Basophils % 0.3 Nucleated RBC % 0.0 Absolute Neutrophils 11.09 H Absolute Lymphocytes 2.13 Absolute Monocytes 1.65 H Absolute Eosinophils 0.02 Absolute Basophils 0.05 RBC Morphology Normal VBG Lactate 1.9 Sodium 139 Potassium 3.7 Chloride 101 Carbon Dioxide 30.5 Anion Gap 7.5 BUN 14 Creatinine 0.96 Est GFR (CKD-EPI 2020) 57.80 Glucose 122 H Calcium 8.7 Total Bilirubin 0.50 AST 23 ALT 27 Alkaline Phosphatase 67 Troponin I 30 26 Total Protein 6.6 Albumin 4.0 Lipase 27 Urine Color Urine Clarity Urine pH Ur Specific [place] Urine Protein Urine Ketones Urine Blood Urine Nitrite Urine Bilirubin Urine Urobilinogen Ur Leukocyte Esterase Urine RBC Urine WBC Ur Epithelial Cells Urine Crystals Urine Bacteria Urine Casts Urine Mucus Urine Other Ur Culture Indicated? Urine Glucose COVID-19 Source Nasopharynx SARS-CoV-2 (PCR) Positive A Influenza Type A (PCR) Negative Influenza Type B (PCR) Negative RSV (PCR) Negative 05/25/25 05/25/25 05/26/25 15:07 15:48 07:15 WBC 9.88 RBC 4.01 Hgb 11.3 Hct 35.2 L MCV 88 MCH 28.2 MCHC 32.1 RDW 14.7 H Plt Count 181 MPV 10.1 Immature Gran % Neutrophils % Lymphocytes % Monocytes % Eosinophils % Basophils % Nucleated RBC % Absolute Neutrophils Absolute Lymphocytes Absolute Monocytes Absolute Eosinophils Absolute Basophils RBC Morphology VBG Lactate Sodium 143 Potassium 3.7 Chloride 106 Carbon Dioxide 27.7 Anion Gap 9.3 BUN 13 Creatinine 0.71 Est GFR (CKD-EPI 2020) 81.87 Glucose 196 H Calcium 8.7 Total Bilirubin AST ALT Alkaline Phosphatase Troponin I Cancelled Total Protein Albumin Lipase Urine Color Yellow Urine Clarity Clear Urine pH 6.0 Ur Specific [place] <= 1.005 Urine Protein Negative Urine Ketones Negative Urine Blood Negative Urine Nitrite Negative Urine Bilirubin Negative Urine Urobilinogen 0.2 Ur Leukocyte Esterase Small H Urine RBC Negative Urine WBC >50 H Ur Epithelial Cells Moderate Urine Crystals Negative Urine Bacteria Moderate Urine Casts Negative Urine Mucus Trace Urine Other Rare Renal Ur Culture Indicated? No/Sq. Contamination Urine Glucose Negative COVID-19 Source SARS-CoV-2 (PCR) Influenza Type A (PCR) Influenza Type B (PCR) RSV (PCR) VTE Prohylaxis Risk Level: Moderate/High Risk Contraindications: None Prophylaxis: Patient anticoagulated (apixaban) Time Spent with Patient Time Spent with Patient: 35-49 minutes Time was spent: preparing to see the patient(eg.review tests), obtaining and/or reviewing separately otained hiistory, ordering medications,tests, procedures, referring, communicating with other health school child care attendant, indepentently interpreting results, counseling the patient and care coordination
--- NOTE | 2025-05-26 15:02 | PT.INIE ---
PT Notes Visit Reasons: Covid , UTI/Sepsis Inpatient Physical Therapy Evaluation Date: 05/26/2025 Referring Doctor: Joby Hayes MD PT Orders: PT CONSULT:Safety Consult for AD. fall Safety Assessment. Read[facility]. weakness Precautions: Fall. Airborne precautions in place for COVID-19. Epilepsy-prone. Patient Profile/Admitting: is a 69-year-old female with meningioma presented to the ED on 05/25/2025 due to fever, confusion, and geernal body malaise. Patient is admitted for management of sepsis, COVID-19 infeciton, and MSSA bacteremia, and UTI. 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) GERD (gastroesophageal reflux disease) (Chronic) Peripheral neuropathy (Acute) Diabetes (Chronic) Hypertension (Chronic) Vitamin B12 deficiency (non anemic) (Acute) Obstructive sleep apnea (Chronic) Meningioma (Acute) Hyperlipidemia (Acute) COPD (chronic obstructive pulmonary disease) (Chronic) Medical History Venous thromboembolism (VTE) Cerebral venous thrombosis Cerebral venous infarction, acute Spinal stenosis cervicalDiverticular disease Surgical History Synovial cyst of sacral region resectionS/P cholecystectomy S/P craniotomy 1999 and 2018S/P cervical discectomy C5-6 decompression for cord impingement Subjective: Pleasant and cooperative. Hopeful about coming back to the rehab once she is cleared medically. Denied headache, chest pain, and lightheadedness throughout session. Objective: General Observation: Telemetry montoring in place. Marshall catheter in place. Mental Status: A and O x 4 Pain: None reported Vital Signs: SaO2 lowest of 93%-95% on RA throughout session ROM: Right Upper Extremity: Shoulder Flexion WFL. Shoulder abduction WFL. Elbow flexion WFL. Wrist flexion WFL. Functional opening and closing of hand WFL. Left Upper Extremity: Shoulder Flexion WFL. Shoulder abduction WFL. Elbow flexion WFL. Wrist flexion WFL. Functional opening and closing of hand WFL. Right Lower Extremity: Hip flexion WFL. Hip abduction WFL. Knee flexion WFL. Ankle dorsiflexion WFL. Ankle plantarflexion WFL. Left Lower Extremity: Hip flexion WFL. Hip abduction WFL. Knee flexion WFL. Ankle dorsiflexion WFL. Ankle plantarflexion WFL. Strength: Right Upper Extremity: Shoulder flexors 4-/5. Shoulder abductors 4-/5. Elbow flexors 4-/5. Elbow extensors 4-/5. Regional Maintenance Manager strong. Left Upper Extremity: Shoulder flexors 4-/5. Shoulder abductors 4-/5. Elbow flexors 4-/5. Elbow extensors 4-/5. Regional Maintenance Manager strong. Right Lower Extremity: Hip flexors 4-/5. Hip abductors 4-/5. Knee flexors 4-/5. Knee extensors 4-/5. Ankle dorsiflexors 4-/5. Ankle plantarflexors 4-/5. Left Lower Extremity: Hip flexors 4-/5. Hip abductors 4-/5. Knee flexors 4-/5. Knee extensors 4-/5. Ankle dorsiflexors 4-/5. Ankle plantarflexors 4-/5. Sensation: Intact as to pain and light pressure in B LE Bed Mobility/Transfers: sit to stand stand by assist with definite use of B hands for support and stability stand to sit contact guard assist with definite use of B hands for support and stability Gait: 50 feet inside room with stand by assist using FWW. Minimal verbal cueing needed for increased step height and length, safe directional changes. Step length asymmetric. slowed directional change. Minimal SOB but SaO2 satyed above 90% throughout the walk. Balance: Static Sitting: Good Dynamic Sitting: Good Static Standing: Fair Dynamic Standing: Fair Special Tests: Mobility Limitations Standardized Measure [facility] 6 clicks Basic Mobility Inpatient Short Form: Raw Score: 20? CMS Score: 36%??? Informed Consent/Education:? Patient instructed in purpose of PT consult and plan of care. Agreeable to proceed with established PT POC to achieve personal goals. Assessment:? Patient presents with clinical signs and symptoms consistent with current/admitting diagnoses that have resulted to mobility limitations, gait instability, generalized weakness, and overall ADL decline as demonstrated by the following impairment level findings: 1. Decreased strength to B UE/LE major muscle groups 2. Impaired sitting/standing balance 3. Impaired activity tolerance 4. MInimal shortness of breath 5. Swelling in B LE with R more affected than L Impairments are contributing to the following functional limitations: 1. Decline in bed mobility skills 2. Decline in transfer skills 3. Difficulty with ambulation without assistive device and physical assistance 4. Increased completion time for mobility ADL performance 5. Increased risk for falls 6. Difficulty with managing steps alone safely Patient is assessed as a 16222 moderate complexity based on the following: History: 69-year-old female with past medical history as indicated above Examination: Demonstrable impairment in strength, balance, and mobility level with underlying impairments and functional limitations as exhibited above as well as deficit score of 36% utilizing the [facility] Mobility Inpatient Short Form Presentation: Evolving Decision Makin moderate complexity THERA EX: One-on-one instruction on safe and correct performance of exercises as follows: DBE x 5 Seated marches x 10 with 5 sh DBE x 5 Seated B LAQs x 10 DBE x 5 Seated hip abduction/adduction x 10 DBE x 5 Goals: Goals X1 week 1. Sit-Stand independent with FWW 2. Stand-Sit independent with FWW 3. Bed-Chair independent with FWW 4. Chair-Bed independent with FWW 5. Gait - ambulates 150 ft w/ FWW with modified independence Plan of Care/Treatment Plan: 1-2x/day, 7 days/week x 1 week. Plan of care has been reviewed with the INDUCTION FURNACE OPERATOR providing the service under Physical Therapy direction. Initiate Physical Therapy intervention for strengthening, bed mobility, transfers, gait, stairs, balance training, use of assistive device. DISCHARGE RECOMMENDATIONS: Return to SNF with subacute PT for functional mobility training, strengthening/conditioning, and balance training. TREATMENT CODE/TIME: 57203 x 20 minutes for 1 unit, 26146 x 26 minutes for 2 units ((15:02-15:48). Thank you for the opportunity to participate in the care of this patient. Shannan Merlos PT, DPT, CLT [facility] [place], [place]
[2025-05-26] MEDS: REMDESIVIR 100 MG in Normal Saline 250 ML 250 MG IVPB (16:21)
[2025-05-26] MEDS: cefTRIAXone 2 GM/50 ML BAG IVPB (22:24)
[2025-05-27] MEDS: Hydrocortisone SOD SUC. 100 MG VIAL 50 MG IVP ×2 (02:31→09:38)
[2025-05-27 02:40] VITALS: BP 155/70; PULSE 66; RESP 17; TEMP 36.6; O2SAT 94
[2025-05-27] MEDS: Omeprazole 20 MG CAPCR 40 MG PO (06:32)
[2025-05-27 08:17] VITALS: BP 163/63; PULSE 54; RESP 16; TEMP 36.2; O2SAT 94
[2025-05-27] MEDS: glipiZIDE 5 MG TAB 2.5 MG PO (09:38)
[2025-05-27] MEDS: Omega-3 Fatty Acids 1000 MG CAP PO (09:38)
[2025-05-27] MEDS: Apixaban 5 MG TAB PO (09:38)
[2025-05-27] MEDS: Dexamethasone 1 MG TAB PO (09:38)
[2025-05-27] MEDS: Magnesium Gluconate 500 MG TAB 1000 MG PO (09:38)
[2025-05-27] MEDS: Cyanocobalamin 500 MCG TAB 1000 MCG PO (09:39)
[2025-05-27] MEDS: Normal Saline Flush 10 ML SYR IVP ×2 (09:39→11:35)
[2025-05-27] MEDS: Cetirizine 10 MG TAB PO (09:39)
[2025-05-27] MEDS: Lacosamide 100 MG TAB 200 MG PO (09:39)
[2025-05-27] MEDS: levETIRAcetam 500 MG TAB PO (09:39)
--- NOTE | 2025-05-27 09:43 | PT.INTREAT ---
PT Notes Visit Reasons: Covid , UTI/Sepsis Inpatient Physical Therapy Treatment Note Date: 05/27/2025 Precautions: Fall. Airborne precautions in place for COVID-19. Epilepsy-prone. Subjective: Worried about daughter who is sick and is in [place], [place]. [place] stiff getting up from bed. Complained of pain at rangel catheter insertion. Reported soreness in L knee that was not present yesterday. Could not put weight through L wrist due to presence of IV, platform placed on L to ensure safety of walker and relieve pain. Nurse Juanjo aware of patient reports/complaint. Objective: General Observation: Telemetry monitoring in place. Rangel catheter in place. Mental Status: A and O x 4 Pain: As above Vital Signs: SaO2 lowest of 93% on RA throughout session Sensation: Intact as to pain and light pressure in B LE Bed Mobility/Transfers: Moderate verbal cueing needed for hand placement supine to sit minimal assist due to too soft amattress causing patient to sink into it excessively sit to stand stand by assist with definite use of B hands for support and stability stand to sit contact guard assist with definite use of B hands for support and stability Gait: 75 feet inside room with stand by assist using FWW. Minimal verbal cueing needed for increased step height and length, safe directional changes. Step length asymmetric. slowed directional change. Minimal SOB but SaO2 satyed above 90% throughout the walk. Balance: Static Sitting: Good Dynamic Sitting: Good Static Standing: Fair Dynamic Standing: Fair Assessment:? Patient continues to tolerate functional mobility performance and strengthening session without need for oxygen supplementation. Attached a platfrom on the L side as her the IV on the L wrist and medial antecubital areas hurt with weight bearing. Will continue to benefit from services to reduce fall risk. THERA EX: One-on-one instruction on safe and correct performance of exercises as follows using green theraband: DBE x 5 Seated marches x 10 with 5 sh against green TB DBE x 5 Seated marches x 10 with 5 sh against green TB DBE x 5 Seated hip abduction/adduction x 10 against green TB DBE x 5 Plan of Care/Treatment Plan: Continue strengthening, functional mobility training and balance skilling at subacute rehab to reduce fall risk. DISCHARGE RECOMMENDATIONS: Return to SNF with subacute PT for functional mobility training, strengthening/conditioning, and balance training. TREATMENT CODE/TIME: 51258 x 30 minutes for 2 units, 10711 x 36 for 2 units ((09:43-10:49).
[2025-05-27 11:21] VITALS: BP 161/72; PULSE 61; RESP 18; TEMP 36.6; O2SAT 95
[2025-05-27] MEDS: REMDESIVIR 100 MG in Normal Saline 250 ML 250 MG IVPB (11:35)
--- NOTE | 2025-05-27 12:19 | DSE_ITS ---
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: Status: Acute Discharge Plan Disposition Patient Disposition: Long-Term Facility(SNF) Condition: Serious Condition: Improving Discharge Details Reason For Visit: Covid , UTI/Sepsis Admit Date/Time: 05/25/25 16:06 Admit Provider: Joby Hayes Attending Provider: Joby Hayes Primary Care Provider: Francine Owen Hospital Course Hospital Course: 69-year-old female history of seizures related to meningioma on oral Keppra and lacosamide, cerebral venous thrombosis, PAD, diabetes, hypertension, COPD, CKD stage III who was recently admitted 04/15-05/03 for MSSA bacteremia treated with 2+ weeks of IV cefazolin in the setting of a vascular access port that was removed. On 05/25 she was sent from SNF with fever and alteration of her mental status, having tested positive for COVID on 05/24. She had a fever and elevated WBC and met sepsis criteria. She was admitted and treated with remdesavir for COVID and ceftriaxone for possible UTI and to cover in case MSSA bacteremia had recurred. She was never hypoxic, but given her chronic dexamethasone treatment for her brain tumor, she was given stress dose hydrocortisone 50mg TID. She improved clinically with resolution of fever and headache and slight mental status suppression and normalization of WBC count. She had nasal congestion but minimal cough and no shortness of breath. She completed the 3 day course of remdesavir which is an option for outpatient treatment for high risk patients. The urine culture grew only contaminants and she never had urinary symptoms. Her blood cultures were negative at 48 hours at the time of discharge. Antibiotics were stopped. She was evaluated by PT who recommended continuing PT for strength and fall prevention after going back to rehab. Her chronic would was assessed and was not worse, wound care was continued. She should resume her home medications including her regular dose of dexamethasone. Home Meds and New Rx's Prescriptions: Continued Eliquis 5 mg tablet 5 mg PO BID omega-3 fatty acids [Fish Oil Concentrate] 1,000 mg capsule 1,000 mg PO BID lacosamide 200 mg tablet 200 mg PO BID levetiracetam 750 mg tablet 500 mg PO BID Alive Women's Multivitamin 4.5 mg iron- 120 mcg-60 mcg tablet 1 tab PO DAILY cyanocobalamin (vitamin B-12) 1,000 mcg capsule 1,000 mcg PO DAILY dexamethasone 1 mg tablet 1 mg PO DAILY Patient Comments: TAKE 1 & 1/2 TABLETS BY MOUTH DAILY FOR 1 WEEK, THEN TAKE 1 TABLET DAILY THEREAFTER glipizide 2.5 mg tablet 2.5 mg PO DAILY omeprazole 40 mg capsule,delayed release(DR/EC) 40 mg PO DAILY Patient Comments: TAKE ONE CAPSULE BY MOUTH EVERY DAY gabapentin 300 mg capsule 300 mg PO BID diphenhydramine HCl [Benadryl] 25 mg capsule 25 mg PO Q12H PRN PRN bisacodyl 10 mg suppository 10 mg OK Q12H PRN PRN nicotine (polacrilex) [Nicorette] 2 mg gum 2 mg buccal Q2H bisacodyl [Dulcolax (bisacodyl)] 5 mg tablet,delayed release (DR/EC) 5 mg PO DAILY PRN glycerin (adult) [Fleet Glycerin (Adult)] Suppository 1 supp OK DAILY PRN dextrose [Glucose Gel] 40 % gel 10 g PO Q15M PRN Rx Instructions: until symptoms of low blood sugar are controlled glucagon HCl [Glucagon (HCl) Emergency Kit] 1 mg recon soln 1 mg IM Q20M PRN Rx Instructions: until target blood sugar attained acetaminophen [Pain Relief (acetaminophen)] 325 mg tablet 650 mg PO Q6H PRN (Reason: pain) cetirizine 10 mg Tablet 10 mg PO DAILY Qty: 30 0RF magnesium gluconate 27 mg magnesium (500 mg) Tablet 1,000 mg PO DAILY Qty: 0 0RF losartan 25 mg tablet 25 mg PO HS Qty: 0 0RF Discharge Instructions Instructions: COVID-19 in adults - Discharge instructions Additional Instructions: You finished your treatment for COVID infection. You should go back on your chronic medications. Activity:: Activity as Tolerated Equipment/Supplies:: No Equipment Needed Diet:: Carb Counting Discharge Orders Discharge Orders: Discharge Order (Routine); Ordered 05/27/25 Ordered By: Joby Hayes DS: Summary Time Spent with Patient providing and/or coordinating discharge services: Greater than 30 minutes Status at Discharge Functional status at discharge: uses cane/walker Overall status at discharge: patient is back to baseline Mental Status: mental status grossly normal Speech and Movement: speech and movement normal Mood: congruent mood Affect: normal affect Quality:SDOH Health Related Social Needs: Health related social needs lonely/isolated Health related social needs details says sometimes she has a little loneliness, but is not concerned Exam Narrative Exam Narrative: GEN: Alert and oriented. No acute distress at rest. LUNGS: CTAB with normal effort CV: RRR with no murmurs, gallops, or rubs. ABD: active bowel sounds, soft, nontender and nondistended. No masses. EXT: no cyanosis, clubbing. 1+ lucio edema to shins, wound right ankle clean, dressed, no redness. Psych Mental Status: mental status grossly normal Speech and Movement: speech and movement normal Mood: congruent mood Affect: normal affect DS: Data Vitals/I&O Vitals and I&O: Vital Signs Temperature 36.6 C 05/27/25 11:21 Temperature Source Temporal Artery Scan 05/27/25 11:21 Pulse 61 05/27/25 11:21 Pulse Rhythm Regular 05/25/25 17:38 Pulse 68 05/25/25 17:01 Respiratory Rate 18 05/27/25 11:21 Respiratory Effort Normal, Non-Labored 05/25/25 17:38 Respiratory Depth Normal 05/25/25 17:38 Respiratory Pattern Normal 05/25/25 17:38 Blood Pressure 161/72 H 05/27/25 11:21 Blood Pressure Mean 101 05/27/25 11:21 Blood Pressure Position Sitting 05/25/25 12:34 Pulse Oximetry 95 05/27/25 11:21 Oxygen Delivery Method Room Air 05/27/25 11:21 Oxygen Flow Rate 0 05/27/25 11:21 Pain Level 0 05/27/25 11:21 Comment RN Notified 05/26/25 23:04 Intake & Output 05/26/25 05/27/25 05/27/25 23:59 11:59 23:59 Intake Total 1210 / 2190 550 / 550 Output Total 2100 / 2375 1450 / 1450 Balance -890 / -185 -900 / -900 Intake: IV 250 / 750 50 / 50 Oral 960 / 1440 500 / 500 Output: Urine 2100 / 2375 1450 / 1450 Other: Urine Color Yellow Yellow Urine Appearance Clear Clear Urine Odor None Stool Size Moderate Stool Characteristics Soft Formed Data Completed and Pending Pending Labs at Discharge: 05/25/25 05/25/25 05/25/25 12:55 13:35 14:48 WBC 15.03 H RBC 4.29 Hgb 12.0 Hct 37.7 MCV 88 MCH 28.0 MCHC 31.8 L RDW 14.9 H Plt Count 211 MPV 10.0 Immature Gran % 0.6 Neutrophils % 73.8 Lymphocytes % 14.2 Monocytes % 11.0 Eosinophils % 0.1 Basophils % 0.3 Nucleated RBC % 0.0 Absolute Neutrophils 11.09 H Absolute Lymphocytes 2.13 Absolute Monocytes 1.65 H Absolute Eosinophils 0.02 Absolute Basophils 0.05 RBC Morphology Normal VBG Lactate 1.9 Sodium 139 Potassium 3.7 Chloride 101 Carbon Dioxide 30.5 Anion Gap 7.5 BUN 14 Creatinine 0.96 Est GFR (CKD-EPI 2020) 57.80 Glucose 122 H Calcium 8.7 Total Bilirubin 0.50 AST 23 ALT 27 Alkaline Phosphatase 67 Troponin I 30 26 Total Protein 6.6 Albumin 4.0 Lipase 27 Urine Color Urine Clarity Urine pH Ur Specific [place] Urine Protein Urine Ketones Urine Blood Urine Nitrite Urine Bilirubin Urine Urobilinogen Ur Leukocyte Esterase Urine RBC Urine WBC Ur Epithelial Cells Urine Crystals Urine Bacteria Urine Casts Urine Mucus Urine Other Ur Culture Indicated? Urine Glucose COVID-19 Source Nasopharynx SARS-CoV-2 (PCR) Positive A Influenza Type A (PCR) Negative Influenza Type B (PCR) Negative RSV (PCR) Negative 05/25/25 05/25/25 05/26/25 15:07 15:48 07:15 WBC 9.88 RBC 4.01 Hgb 11.3 Hct 35.2 L MCV 88 MCH 28.2 MCHC 32.1 RDW 14.7 H Plt Count 181 MPV 10.1 Immature Gran % Neutrophils % Lymphocytes % Monocytes % Eosinophils % Basophils % Nucleated RBC % Absolute Neutrophils Absolute Lymphocytes Absolute Monocytes Absolute Eosinophils Absolute Basophils RBC Morphology VBG Lactate Sodium 143 Potassium 3.7 Chloride 106 Carbon Dioxide 27.7 Anion Gap 9.3 BUN 13 Creatinine 0.71 Est GFR (CKD-EPI 2020) 81.87 Glucose 196 H Calcium 8.7 Total Bilirubin AST ALT Alkaline Phosphatase Troponin I Cancelled Total Protein Albumin Lipase Urine Color Yellow Urine Clarity Clear Urine pH 6.0 Ur Specific [place] <= 1.005 Urine Protein Negative Urine Ketones Negative Urine Blood Negative Urine Nitrite Negative Urine Bilirubin Negative Urine Urobilinogen 0.2 Ur Leukocyte Esterase Small H Urine RBC Negative Urine WBC >50 H Ur Epithelial Cells Moderate Urine Crystals Negative Urine Bacteria Moderate Urine Casts Negative Urine Mucus Trace Urine Other Rare Renal Ur Culture Indicated? No/Sq. Contamination Urine Glucose Negative COVID-19 Source SARS-CoV-2 (PCR) Influenza Type A (PCR) Influenza Type B (PCR) RSV (PCR) Preliminary micro results at discharge 05/25/25 13:05 Blood Blood Culture - Preliminary NO GROWTH 24 HOURS 05/25/25 12:55 Blood Blood Culture - Preliminary NO GROWTH 24 HOURS PFSH All Active Problems (Updated 05/27/25 @ 12:09 by Joby Hayes) UTI (urinary tract infection) (Acute) COVID (Acute) Vaginal candidiasis (Acute) MSSA bacteremia (Acute) Bacteremia associated with intravascular line (Acute) Staphylococcus aureus bacteremia (Acute) Brain tumor (Acute) Sepsis (Acute) PAD (peripheral artery disease) (Acute) PVD (peripheral vascular disease) (Chronic) Dystrophia unguium (Acute) Onychomycosis (Acute) Ingrown toenail (Acute) 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) GERD (gastroesophageal reflux disease) (Chronic) Peripheral neuropathy (Acute) Diabetes (Chronic) Hypertension (Chronic) Vitamin B12 deficiency (non anemic) (Acute) Obstructive sleep apnea (Chronic) Meningioma (Acute) Hyperlipidemia (Acute) COPD (chronic obstructive pulmonary disease) (Chronic) Medical History Venous thromboembolism (VTE) Cerebral venous thrombosis Cerebral venous infarction, acute Spinal stenosis cervical Diverticular disease Surgical History Synovial cyst of sacral region resection S/P cholecystectomy S/P craniotomy 2000 and 2018 S/P cervical discectomy C5-6 decompression for cord impingement Family History Mother Stroke Father Diabetes Heart disease Social History Smoking/Tobacco Use Status: Former Tobacco Use Smoking risk assessment performed?: Yes Alcohol Intake: never Drug use: Never Substance use type: marijuana Household members: none Housing: assisted living facility Number of Children: 2 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 since recent admissions 2024 Time Spent with Patient Time Spent with Patient: <45 minutes Time was spent: preparing to see the patient(eg.review tests), obtaining and/or reviewing separately otained hiistory, ordering medications,tests, procedures, referring, communicating with other health child care aide, indepentently interpreting results, counseling the patient and care coordination
--- NOTE | 2025-05-27 12:28 | CMDISCH_ITS ---
Date of service: 05/27/25 Time of Service: 12:28 LACE Index Scoring Tool Questions: Length of Stay (in days): 2 Was the patient admitted via the E.D.?: Yes Comorbidities: Cerebrovascular Disease, Chronic Pulmonary Disease and Any Tumor E.D. Visits: 2 Answers: Total Score: 12 Risk of Readmission: High Risk Care Management Discharge Plan Reason for Hospitalization: Covid, UTI Discharge Plan: is returning to [facility] this afternoon. She will f/u with the facility provider and continue per her plan of care. will transport via [facility] wheel chair van as arranged by CM. is very pleased with this discharge plan. Patient/Family Education Needs: Review of discharge instructions, activity, limitations, and discuss ask me 3. Services Needed at Discharge: [facility] (requesting continued PT and OT) SDOH Health Related Social Needs: Health related social needs lonely/isolated Health related social needs details says sometimes she has a little loneliness, but is not concerned
== END 2025-05-27 14:02 | disposition skilled nursing facility (03) ==
LOC: ER 13:23 → MS 17:31
PROVIDERS: Admitting Provider Family Medicine; Emergency Provider Physician Assistant; PCP Physician Assistant; Responsible Provider Family Medicine; Visit Provider Family Medicine
DX: A41.9 Sepsis, unspecified organism (principal); N39.0 Urinary tract infection, site not specified; U07.1 COVID-19; J44.9 Chronic obstructive pulmonary disease, unspecified; K21.9 Gastro-esophageal reflux disease without esophagitis; G40.109 Localization-related (focal) (partial) symptomatic epilepsy and epileptic syndromes with simple partial seizures, not intractable, without status epilepticus; Z79.899 Other long term (current) drug therapy; R45.89 Other symptoms and signs involving emotional state; I73.9 Peripheral vascular disease, unspecified; I12.9 Hypertensive chronic kidney disease with stage 1 through stage 4 chronic kidney disease, or unspecified chronic kidney disease; N18.30 Chronic kidney disease, stage 3 unspecified; Z79.84 Long term (current) use of oral hypoglycemic drugs; Z79.01 Long term (current) use of anticoagulants; E11.42 Type 2 diabetes mellitus with diabetic polyneuropathy; E53.8 Deficiency of other specified B group vitamins; G47.33 Obstructive sleep apnea (adult) (pediatric); E78.5 Hyperlipidemia, unspecified; B35.1 Tinea unguium; Z86.73 Personal history of transient ischemic attack (TIA), and cerebral infarction without residual deficits; F12.90 Cannabis use, unspecified, uncomplicated; D32.0 Benign neoplasm of cerebral meninges; Z79.52 Long term (current) use of systemic steroids
CPT/HCPCS: 00123; 36415; 51702; 74177; 80048; 80053; 83690; 85027; 87040; 87637; 93005; 96361; 96365; 96367; 96368; 97110; 97162; 97530; 99285; 70450; 71260; 81003; 81015; 83605; 84484; 85025; 93010; 99222; 99232; 99238; G0378; J0131; J0248; J0692; J0696; J1720; J1815; J3490; J8540